=== PATIENT | male | born 1965 | race Caucasian/White ===

== ENCOUNTER 2016-08-24 16:09 | Emergency (ER) | payer SELFPAY ==
[2016-08-24 18:02] LABS: APPEARANCE CLEAR (CLEAR); BILIRUBIN NEGATIVE (NEGATIVE); COLOR YELLOW (YELLOW); GLUCOSE 50 mg/dL (NEGATIVE); KETONE NEGATIVE (NEGATIVE); LEUKOCYTE ESTERASE TRACE (NEGATIVE); NITRITE NEGATIVE (NEGATIVE); PROTEIN 3+ mg/dL (NEGATIVE); UROBILINOGEN NORMAL (NORMAL)
[2016-08-24 18:03] LABS: BACTERIA FEW /hpf (NONE SEEN); EPITHELIAL CELLS 0-5 /hpf (0-5); GRANULAR CAST OCC /lpf (NONE SEEN); RED CELLS - URINE 0-5 /hpf (0-5); WHITE CELLS - URINE 0-5 /hpf (0-5)
== END 2016-08-24 18:52 | disposition home or self-care (01) ==
LOC: D.ER 16:09
PROVIDERS: Nurse Practitioner Family
DX: L03.211 Cellulitis of face (principal); M62.838 Other muscle spasm; S39.012A Strain of muscle, fascia and tendon of lower back, initial encounter; W19.XXXA Unspecified fall, initial encounter

== ENCOUNTER 2017-03-16 13:56 | Inpatient (IN) | payer MEDICAID ==
[~2017-03-16] VITALS: Ht 180.3 cm; Wt 107.2 kg
--- NOTE | ~2017-03-16 | EC ---
PATIENT:NADIA WHITT DATE OF SERVICE: 03/16/17 SEX: M MEDICAL RECORD: [id number] DATE OF : [birth year] LOCATION:D.M2 D.212 AGE OF PATIENT: 51 ADMISSION DATE: 03/16/17 REFERRING PHYSICIAN: INTERPRETING PHYSICIAN: IJEOMA ARAIZA MD ECHOCARDIOGRAM REPORT ECHO CHARGES 4 ECHO COMPLETE CLINICAL DIAGNOSIS: CHF ECHOCARDIOGRAPHIC MEASUREMENTS (adult normal given) AC root (d.<3.7cm) 3.5 cm LV Septum d (<1.2 cm> 1.6 cm Valve Excursion 2.0 cm LV Septum (systole) 1.8 cm Left Atria (s.<4.0cm> 5.4 cm LVPW d(<1.2cm) 1.8 cm RV (d.<2.3cm) 4.8 cm LVPW (sytole) 2.2 cm LV diastole(<5.6CM) 5.1 cm MV E-F(>70mm/sec) cm LV systole 3.5 cm LVOT Diameter 2.2 cm MV exc.(>10mm) 1.9 cm Est.ejection fraction (50-75%) % Pericardial Effusion Y DOPPLER: LVIT cm/sec A 57.0 cm/sec E 110 cm/sec LA cm/sec RVSP 36 mmHg LVOT 91 cm/sec AOP1/2T m/s Asc. Ao 135 cm/sec RVOT 85 cm/sec RA cm/sec PA 126 cm/sec AV Gradient Peak 7.32 mmHg AV Mean 3.98 mmHg AV Area 2.6 cm MV Gradient Peak 8.32 mmHg MV Mean 2.26 mmHg MV Area cm COMMENTS: Bookkeeping Assistant: 2 GUERA MARTINI Cost Recovery Technician: 3 Dr. Overton TAPE# PACS DATE OF SERVICE: 03/17/2017 Adequate 2-D echo, color flow, spectral Doppler, and M-mode Concentric LVH is present. LV internal dimensions are normal. LV is globally hypokinetic with reduced EF. Estimated EF 30% to 35%. Aortic valve sclerosis without stenosis by Doppler interrogation. Left atrium is obviously dilated at 5.4 cm. Mitral valve is thickened. Mild MR. Right-sided chamber is grossly normal. Mild TR. ECHOCARDIOGRAM REPORT [id number] NADIA WHITT TRANSINT:[id number] Voice Confirmation ID: [id number] DOCUMENT ID: [id number] 03/21/2017 Edited to correct date of service, dmm. IJEOMA ARAIZA MD at 1337 CC: [id number] DICTATION DATE: 03/18/17 1036 INVENTORY TRANSCRIBER: 03/18/17 1153 DIS IN 03/27/17 [place] [id number] [place] [id number]
--- NOTE | ~2017-03-16 | HP ---
PATIENT: NADIA WHITT MEDICAL RECORD: [id number] ACCOUNT: [id number] LOCATION:.[facility].2126 : [birth year] ADMISSION DATE: 03/16/17 HISTORY AND PHYSICAL EXAMINATION REASON FOR ADMISSION: Shortness of breath. HISTORY OF PRESENT ILLNESS: The patient is a 51-year-old male from [place]. He is temporarily living in [place]. He came into the ED today because of increasing trouble with shortness of breath and inability to lay flat while sleeping. He denied chest pain. He has also noticed that his lower extremities have been more swollen over the last several weeks. He states he has a history of kidney disease, he was told about just a few months ago. He had a kidney biopsy, does not know the results. He said he has never been told he had heart failure. He does admit to having hypertension. He takes some medication, but has none of them with him. He thinks he takes metformin. Denies chest pain or recent fever. PAST MEDICAL HISTORY: AODM for 5 years; acute kidney failure, 6 months; essential hypertension; obesity; diabetic neuropathy; and erectile dysfunction. PAST SURGICAL HISTORY: Negative. SOCIAL HISTORY: Unsure of his mother's health. Father had hypertension. Socially, he quit smoking this year. He has a [id number]-axwu history of smoking. He said he has done all different types of drugs, but none recently. 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 MEDICATIONS: Metformin, dose unknown. ALLERGIES: PENICILLIN. REVIEW OF SYSTEMS: CONSTITUTIONAL: Generally, he has been fatigued for the last several weeks, poor appetite. No fever. HEENT: No recent visual change, sinus congestion, or sore throat. RESPIRATORY: He has had increasing shortness of breath, but no cough. CARDIAC: No chest pain, but increasing lower peripheral edema and edema in his thighs and lower abdomen. GASTROINTESTINAL: No nausea, vomiting, change in stools or blood per rectum. GENITOURINARY: Nocturia once nightly. ENDOCRINE: Denies polyuria, polydipsia, heat, or cold intolerance. NEUROLOGIC: No history of stroke, TIA, vascular headaches or seizure. He does have numbness in the bottoms of his feet. GENITOURINARY: Nocturia once nightly as mentioned. INTEGUMENT: No rash or itching. PSYCHIATRIC: Denies depress mood. PHYSICAL EXAMINATION: VITAL SIGNS: His temperature was 101.5, pulse 107 and regular, respirations were 24, O2 sats 95% on room air. Blood pressure 170/90, heart rate 100 and regular. GENERAL: The patient is difficult to understand, he speaks with slurred speech. HEENT: Normocephalic. Eyes are clear and nonicteric. Oropharynx is dry mucous membranes. HISTORY AND PHYSICAL [id number] NADIA WHITT NECK: Supple. CHEST: Fine basilar crackles. HEART: Tachycardic without rubs or murmurs appreciated. PMI is displaced laterally. ABDOMEN: Obese, soft with peau d'orange consistency in the lower abdomen. GENITOURINARY: Deferred. EXTREMITIES: He has 4+ bipedal and pretibial edema of the knees. NEUROLOGICAL: Oriented to person, place, and time. Cranial nerves grossly intact. Gait not tested. LABORATORY DATA: Influenza A and B are negative. His white count is 6600, H&H is 8 and 24.8 respectively, platelet count is 130,000, neutrophils were 82%. Potassium was 5.7, CO2 is low at 16.6, anion gap of 21, BUN 16, creatinine 6.3. Liver functions are normal except for alkaline phosphatase of 126. Troponin 0.323. ProBNP is 25,894. Chest x-ray reveals cardiomegaly, severe. ASSESSMENT: 1. Koelm-qm-tmkkifp renal failure. 2. Metabolic acidosis. 3. Hyperkalemia secondary to jvmwj-mr-fdsrlgx renal failure. 4. Congestive heart failure with cardiomegaly. 5. Anemia. 6. Febrile illness, etiology unknown. PLAN: We will culture blood and urine. Urinalysis has not been obtained. We will do that now and see if that is the source of his fever. Renal and cardiology have both been consulted. We will obtain echocardiogram to rule out pericardial effusion. Further workup pending clinical course. TRANSINT:[id number] Voice Confirmation ID: [id number] DOCUMENT ID: [id number] MARY JAIMES MD at 1329 CC: [id number] DICTATION DATE: 03/16/172021 SHIRT HEMMER: 03/17/17 0322 ADM IN [place] [id number] [place] [address]
--- NOTE | ~2017-03-16 | CN ---
PATIENT NAME:NADIA WHITT MEDICAL RECORD: [id number] : 69 LOCATION:D. D.2126 ADMIT DATE: 03/16/17 ACCOUNT: [id number] CONSULTING PHYSICIAN: IJEOMA ARAIZA MD REFERRING PHYSICIAN: MARY JAIMES MD DATE OF CONSULTATION: 03/17/2017 HISTORY OF PRESENT ILLNESS: A 51-year-old gentleman, poor historian. He has a history of diabetes mellitus and renal disease, unsure of the etiology, thinks he was told he is diabetic, 3-week history by his report, progressive downward course, worsening dyspnea, lower extremity edema, orthopnea, generalized malaise and fatigue. He reports early this fall he was able to walk as far as he wanted. He is found to have an enlarged cardiac silhouette, elevated BNP, elevated troponin. We are asked to see him concerning his cardiovascular status. PAST MEDICAL HISTORY: Includes; 1. History of diabetes mellitus. 2. Hypertension. ALLERGIES: PENICILLIN. MEDICATIONS: Metformin, unknown dose. SOCIAL HISTORY: He quit smoking. Social drinker. No illicit drug abuse as of late. Working at a hotel. REVIEW OF SYSTEMS: The patient reports easy bruising but reports no swollen glands. The patient reports no fever, no night sweats, no significant weight gain, no significant weight loss. No significant exercise tolerance. The patient reports no dry eyes, no irritation, no vision change. Patient reports no difficulty hearing and no ear pain. Patient reports no frequent nose bleeds or nose and sinus problems. Patient reports on arm pain on exertion. No shortness of breath while lying down. No history of heart murmur. Patient reports no cough, no wheezing or coughing up blood. Patient reports no abdominal pain, no vomiting. Normal appetite. No diarrhea and not vomiting blood. No nausea and no constipation. Patient reports no incontinence. No difficulty urinating. No hematuria. No increased frequency. Patient reports no muscle aches. No weakness, no arthralgias, no back pain. No swelling of the extremities. Patient reports no abnormal mole, no jaundice, no rashes. Reports no loss of consciousness. No weakness and no numbness. No seizures, dizziness, or headaches. The patient reports no depression, no sleep disturbance, feeling safe in a relationship and no alcohol abuse. Patient reports on fatigue. Reports no runny nose or sinus pressure. No itching, no hives, and no frequent sneezing. PHYSICAL EXAMINATION: GENERAL: Comfortable ill-appearing gentleman in no acute distress. VITAL SIGNS: Blood pressure 174/90, pulse 97 and regular. HEENT: Normocephalic, atraumatic. NECK: No bruits are noted. HEART: Regular, questionable one component rub at the left sternal border. LUNGS: Poor air excursion with inspiratory and expiratory wheezes. ABDOMEN: Soft, nontender. EXTREMITIES: He has 2+ edema, 1+ pulses. NEUROLOGIC: Grossly intact. CONSULT REPORT [id number] NADIA WHITT DIAGNOSTIC DATA: ECG shows nonspecific ST changes, borderline low voltage. IMPRESSION: Multiple medical problems including probably zxiqa-rp-aqcwngo renal insufficiency; anemia, question this is EPO dependent; diabetes mellitus; certainly pericardial effusion versus severe cardiomyopathy concern. We will check echocardiographic study. Further recommendations based on clinical course. TRANSINT:[id number] Voice Confirmation ID: [id number] DOCUMENT ID: [id number] IJEOMA ARAIZA MD at 1129 CC: [id number] DICTATION DATE: 03/17/17 1044 CLIENT RELATIONSHIP CONSULTANT: 03/17/17 1305 ADM IN [facility] [address] [place] [address]
--- NOTE | ~2017-03-16 | OP ---
PATIENT NAME: NADIA WHITT MEDICAL RECORD: [id number] :69 LOCATION:D.M2 D.2126 ADMISSION DATE:03/16/17 SURGEON: GAYLA WERNER MD DATE OF OPERATION: 03/20/2017 PREOPERATIVE DIAGNOSES: 1. Chronic kidney disease. 2. Diabetes mellitus. 3. Congestive heart failure, undifferentiated. POSTOPERATIVE DIAGNOSES: 1. Chronic kidney disease. 2. Diabetes mellitus. 3. Congestive heart failure, undifferentiated. PROCEDURES: 1. Right IJ 19 cm HemoSplit placement. 2. Fluoroscopic interpretation. SURGEON: Gayla Werner MD REPORT OF PROCEDURE: The patient's right neck was prepped and draped in sterile fashion. Using ultrasound guidance, a needle was used to cannulate the right internal jugular vein. The guidewire was advanced with ease. Fluoroscopy was used to note that the wire was in good position in the venous system. A skin incision was then made on the patient's right lateral chest and the catheter was tunneled between this and the wire exit site. The multiple dilators were placed over the wire followed by the dilator trocar. The dilator and wire were removed and the HemoSplit tips were advanced through the trocar. The trocar was removed and a HemoSplit was pulled back until it was resting in good position in the superior vena cava. The catheter aspirated nonpulsatile dark blood and flushed easily with heparinized saline. We then flushed each port with 2 mL of 1000 units per mL of heparin. The catheter was then sutured in place with 2-0 Prolenes and the skin incisions were closed with subcutaneous 5-0 Monocryl. COMPLICATIONS: None. CONDITION: Stable. ANESTHESIA: General endotracheal. BLOOD LOSS: 30 mL. TRANSINT:[id number] Voice Confirmation ID: [id number] DOCUMENT ID: [id number] GAYLA WERNER MD at 0956 CC: [id number] DICTATION DATE: 03/20/17 1540 SENIOR SUPPLIER QUALITY ENGINEER: 03/20/17 1600 DIS IN 03/27/17 [place] [id number] [place] [id number]
[2017-03-16 14:41] LABS: BASOPHILS 0.3 % (0-2); EOSINOPHILS 0.5 % (0-7); HEMATOCRIT 24.8 % (42.0-54.0); IMMATURE GRANULOCYTES 0.5 % (0-5); LYMPHOCYTES 7.9 % (15-50); MCH 29.6 pg (26.0-34.0); MCHC 32.3 g/dL (31.0-37.0); MCV 91.9 fL (80.0-100.0); MEAN PLATELET VOLUME 10.6 fL (7.4-10.4); MONOCYTES 8.5 % (2-11); NEUTROPHILS 82.3 % (40-80); PLATELET COUNT 130 10x3/uL (130-400); RDW 16.7 % (11.5-14.5); WBC 6.6 10x3/uL (4.8-10.8)
[2017-03-16 15:20] LABS: ALBUMIN 2.7 g/dL (3.4-5.0); ANION GAP 21.1 mmol/L (8-16); BILIRUBIN - TOTAL 0.26 mg/dL (0.2-1.3); CALCIUM 7.4 mg/dL (8.5-10.1); CARBON DIOXIDE 16.6 mmol/L (21.0-32.0); CREATININE - SERUM 6.3 mg/dL (0.6-1.3); POTASSIUM - SERUM 5.7 mmol/L (3.5-5.1); PROTEIN - SERUM 6.5 g/dL (6.4-8.2)
[2017-03-16 15:37] LABS: TROPONIN-I 0.323 ng/mL (0.000-0.060)
[2017-03-16 23:00] VITALS: BP 187/82
[2017-03-17 01:56] LABS: APPEARANCE HAZY (CLEAR); COLOR YELLOW (YELLOW); NITRITE NEGATIVE (NEGATIVE); PROTEIN 1+ mg/dL (NEGATIVE); SPECIFIC GRAVITY 1.015 (1.005-1.020)
[2017-03-17 01:57] LABS: BILIRUBIN NEGATIVE (NEGATIVE); GLUCOSE 100 mg/dL (NEGATIVE); KETONE NEGATIVE (NEGATIVE); UROBILINOGEN NORMAL (NORMAL); WHITE CELLS - URINE NSEEN /hpf (0-5)
[2017-03-17 02:25] VITALS: BMI 33.5
[2017-03-17 06:23] VITALS: BP 189/83
[2017-03-17 08:04] VITALS: BP 174/90
[2017-03-17 09:15] LABS: % SATURATION 5 % (15-55); BASOPHILS 0.2 % (0-2); EOSINOPHILS 0.2 % (0-7); HEMATOCRIT 23.3 % (42.0-54.0); IMMATURE GRANULOCYTES 0.6 % (0-5); IRON 14 ug/dl (35-150); LYMPHOCYTES 8.6 % (15-50); MCH 29.2 pg (26.0-34.0); MCHC 32.2 g/dL (31.0-37.0); MCV 90.7 fL (80.0-100.0); MEAN PLATELET VOLUME 11.2 fL (7.4-10.4); MONOCYTES 7.5 % (2-11); NEUTROPHILS 82.9 % (40-80); PLATELET COUNT 117 10x3/uL (130-400); RBC 2.57 10x6/uL (4.20-6.10); RDW 16.4 % (11.5-14.5); TOTAL IRON BIND CAPACITY 258 ug/dl (260-445); UNSAT IRON BIND CAPACITY 244 ug/dl (150-375); WBC 5.5 10x3/uL (4.8-10.8)
[2017-03-17 09:16] LABS: HEMOGLOBIN 7.5 g/dL (13.5-17.5)
[2017-03-17 09:31] LABS: FERRITIN 149 ng/mL (3-244); LDH 294 U/L (85-227)
[2017-03-17 10:02] LABS: ERYTHROCYTE SEDIMENTATION RATE 66 mm/hr (0-15)
[2017-03-17 11:16] VITALS: Ht 180.3 cm; Wt 107.2 kg
[2017-03-17 11:34] VITALS: BP 211/98
[2017-03-17 13:38] LABS: ANION GAP 20.4 mmol/L (8-16); CALCIUM 7.4 mg/dL (8.5-10.1); CARBON DIOXIDE 16.6 mmol/L (21.0-32.0); CREATININE - SERUM 6.7 mg/dL (0.6-1.3)
[2017-03-17 14:33] VITALS: BP 153/74
[2017-03-17 15:37] VITALS: BP 169/74
[2017-03-17 17:22] LABS: HEMOGLOBIN A1C 6.1 % (4.8-6.0)
[2017-03-17 21:36] VITALS: BP 190/84
[2017-03-18 01:29] VITALS: BP 218/101
[2017-03-18 07:24] LABS: BASOPHILS 0.2 % (0-2); EOSINOPHILS 0.6 % (0-7); HEMATOCRIT 26.6 % (42.0-54.0); HEMOGLOBIN 8.7 g/dL (13.5-17.5); IMMATURE GRANULOCYTES 0.6 % (0-5); LYMPHOCYTES 14.4 % (15-50); MCH 29.2 pg (26.0-34.0); MCHC 32.7 g/dL (31.0-37.0); MCV 89.3 fL (80.0-100.0); MEAN PLATELET VOLUME 11.6 fL (7.4-10.4); MONOCYTES 9.9 % (2-11); NEUTROPHILS 74.3 % (40-80); PLATELET COUNT 112 10x3/uL (130-400); RBC 2.98 10x6/uL (4.20-6.10); RDW 16.5 % (11.5-14.5); WBC 4.6 10x3/uL (4.8-10.8)
[2017-03-18 07:47] LABS: CALCIUM 7.6 mg/dL (8.5-10.1); CREATININE - SERUM 6.5 mg/dL (0.6-1.3)
[2017-03-18 07:57] LABS: ANION GAP 16.8 mmol/L (8-16); CARBON DIOXIDE 20.8 mmol/L (21.0-32.0); POTASSIUM - SERUM 4.6 mmol/L (3.5-5.1)
[2017-03-18 07:58] VITALS: BP 166/88
[2017-03-18 11:24] VITALS: BP 167/80
[2017-03-18 13:33] LABS: CREATININE - URINE 53.7 mg/dL (30-125); POTASSIUM - URINE 18.3 MMOL/L (12.0-62.0)
[2017-03-18 13:41] LABS: PRO/CRE RATIO URINE 5.9 mg/g; PROTEIN - URINE 319.5 mg/dL (0.0-11.9)
[2017-03-18 15:35] VITALS: BP 175/85
[2017-03-18 20:00] VITALS: BP 190/91
[2017-03-19] VITALS: BP 175/78
[2017-03-19 04:00] VITALS: BP 190/80
[2017-03-19 06:56] LABS: BASOPHILS 0.3 % (0-2); EOSINOPHILS 1.1 % (0-7); HEMOGLOBIN 8.3 g/dL (13.5-17.5); IMMATURE GRANULOCYTES 0.3 % (0-5); LYMPHOCYTES 16.9 % (15-50); MCHC 33.2 g/dL (31.0-37.0); MCV 87.4 fL (80.0-100.0); MEAN PLATELET VOLUME 10.6 fL (7.4-10.4); NEUTROPHILS 71.4 % (40-80); PLATELET COUNT 111 10x3/uL (130-400); RBC 2.86 10x6/uL (4.20-6.10); RDW 15.9 % (11.5-14.5); WBC 3.6 10x3/uL (4.8-10.8)
[2017-03-19 07:25] LABS: ANION GAP 16.1 mmol/L (8-16); CALCIUM 7.1 mg/dL (8.5-10.1); CARBON DIOXIDE 20.7 mmol/L (21.0-32.0); CREATININE - SERUM 6.3 mg/dL (0.6-1.3)
[2017-03-19 07:26] LABS: POTASSIUM - SERUM 3.8 mmol/L (3.5-5.1)
[2017-03-19 08:10] VITALS: BP 152/82
[2017-03-19 11:23] VITALS: BP 157/79
[2017-03-19 12:11] LABS: FOLATE (FOLIC ACID) - SERUM 10.4 ng/mL (>3.0)
[2017-03-19 15:31] VITALS: BP 144/86
[2017-03-19 20:00] VITALS: BP 166/86
[2017-03-20 04:00] VITALS: BP 176/87
[2017-03-20 04:49] LABS: BASOPHILS 0.3 % (0-2); EOSINOPHILS 1.4 % (0-7); HEMATOCRIT 26.1 % (42.0-54.0); HEMOGLOBIN 8.6 g/dL (13.5-17.5); IMMATURE GRANULOCYTES 0.6 % (0-5); LYMPHOCYTES 21.9 % (15-50); MCH 29.1 pg (26.0-34.0); MCV 88.2 fL (80.0-100.0); MEAN PLATELET VOLUME 11.3 fL (7.4-10.4); MONOCYTES 9.2 % (2-11); NEUTROPHILS 66.6 % (40-80); PLATELET COUNT 111 10x3/uL (130-400); RBC 2.96 10x6/uL (4.20-6.10); RDW 15.9 % (11.5-14.5); WBC 3.6 10x3/uL (4.8-10.8)
[2017-03-20 05:55] LABS: ANION GAP 18.7 mmol/L (8-16); CALCIUM 7.1 mg/dL (8.5-10.1); CARBON DIOXIDE 20.6 mmol/L (21.0-32.0); CREATININE - SERUM 6.3 mg/dL (0.6-1.3); PHOSPHOROUS 6.5 mg/dL (2.5-4.9); POTASSIUM - SERUM 4.3 mmol/L (3.5-5.1)
[2017-03-20 07:42] VITALS: BP 146/82
[2017-03-20 11:26] VITALS: BP 136/80
[2017-03-20 16:13] LABS: HEPATITIS C ANTIBODY >11.0 (0.0-0.9)
[2017-03-21 04:00] VITALS: BP 151/73
[2017-03-21 06:45] LABS: BASOPHILS 0 % (0-2); EOSINOPHILS 1.7 % (0-7); HEMATOCRIT 26.4 % (42.0-54.0); HEMOGLOBIN 8.6 g/dL (13.5-17.5); IMMATURE GRANULOCYTES 1.1 % (0-5); LYMPHOCYTES 22.5 % (15-50); MCHC 32.6 g/dL (31.0-37.0); MCV 88.9 fL (80.0-100.0); MEAN PLATELET VOLUME 11.5 fL (7.4-10.4); MONOCYTES 9.3 % (2-11); NEUTROPHILS 65.4 % (40-80); PLATELET COUNT 119 10x3/uL (130-400); RBC 2.97 10x6/uL (4.20-6.10); RDW 15.7 % (11.5-14.5); WBC 3.6 10x3/uL (4.8-10.8)
[2017-03-21 07:06] LABS: ANION GAP 12.4 mmol/L (8-16); CALCIUM 7.1 mg/dL (8.5-10.1)
[2017-03-21 07:16] LABS: CARBON DIOXIDE 26.6 mmol/L (21.0-32.0); CREATININE - SERUM 4.5 mg/dL (0.6-1.3)
[2017-03-21 08:17] LABS: FOLATE (FOLIC ACID) - SERUM 9.7 ng/mL (>3.0)
[2017-03-21 08:36] VITALS: BP 167/81
[2017-03-21 13:16] LABS: ANA REFLEX - ANTICHROMATIN ABS <0.2 AI (0.0-0.9); ANA REFLEX - CENTROMERE B ABS <0.2 AI (0.0-0.9); ANA REFLEX - DBL STRANDED DNA <1 IU/mL (0-9); ANA REFLEX - DIRECT Positive (Negative); ANA REFLEX - JO-1 AB <0.2 AI (0.0-0.9); ANA REFLEX - RNP ANTIBODIES <0.2 AI (0.0-0.9); ANA REFLEX - SCL-70 1.1 AI (0.0-0.9); ANA REFLEX - SJOGRENS AB SSA <0.2 AI (0.0-0.9); ANA REFLEX - SJOGRENS AB SSB 0.7 AI (0.0-0.9); ANA REFLEX - SMITH AB <0.2 AI (0.0-0.9)
[2017-03-21 15:06] VITALS: BP 166/71
[2017-03-21 21:00] VITALS: BP 164/85
[2017-03-22 06:04] VITALS: BP 183/86
[2017-03-22 06:22] LABS: HEMATOCRIT 25.4 % (42.0-54.0); HEMOGLOBIN 8.4 g/dL (13.5-17.5); LYMPHOCYTES 22.4 % (15-50); MCHC 33.1 g/dL (31.0-37.0); MCV 87.6 fL (80.0-100.0); MEAN PLATELET VOLUME 11.2 fL (7.4-10.4); NEUTROPHILS 67.3 % (40-80); PLATELET COUNT 106 10x3/uL (130-400); RDW 15.4 % (11.5-14.5); WBC 3.6 10x3/uL (4.8-10.8)
[2017-03-22 06:35] LABS: ANION GAP 12.8 mmol/L (8-16); CALCIUM 7.4 mg/dL (8.5-10.1); CARBON DIOXIDE 28.9 mmol/L (21.0-32.0); CREATININE - SERUM 4.2 mg/dL (0.6-1.3); POTASSIUM - SERUM 3.7 mmol/L (3.5-5.1)
[2017-03-22 07:27] LABS: SPE - A/G RATIO 0.8 (0.7-1.7); SPE - ALBUMIN 2.3 g/dL (2.9-4.4); SPE - ALPHA-1 GLOBULIN 0.3 g/dL (0.0-0.4); SPE - BETA GLOBULIN 0.6 g/dL (0.7-1.3); SPE - GAMMA GLOBULIN 1.1 g/dL (0.4-1.8); SPE - M-SPIKE Not Observed g/dL (Not Observed); SPE - TOTAL PROTEIN 5.3 g/dL (6.0-8.5)
[2017-03-22 08:08] VITALS: BP 191/95
[2017-03-22 16:14] LABS: ANCA - ANTIMYELOPEROXIDASE <9.0 U/mL (0.0-9.0); ANCA - ANTIPROTEINASE 3 <3.5 U/mL (0.0-3.5); ANCA - ATYPICAL <1:20 titer (Neg:<1:20); ANCA - CYTOPLASMIC <1:20 titer (Neg:<1:20); ANCA - PERINUCLEAR <1:20 titer (Neg:<1:20)
[2017-03-22 22:44] VITALS: BP 196/101
[2017-03-23 00:59] VITALS: BP 167/78
[2017-03-23 05:17] LABS: BASOPHILS 0.2 % (0-2); EOSINOPHILS 1.3 % (0-7); HEMATOCRIT 26.7 % (42.0-54.0); HEMOGLOBIN 8.5 g/dL (13.5-17.5); IMMATURE GRANULOCYTES 2.2 % (0-5); LYMPHOCYTES 23.1 % (15-50); MCH 28.4 pg (26.0-34.0); MCHC 31.8 g/dL (31.0-37.0); MCV 89.3 fL (80.0-100.0); MEAN PLATELET VOLUME 10.7 fL (7.4-10.4); MONOCYTES 10.1 % (2-11); NEUTROPHILS 63.1 % (40-80); PLATELET COUNT 113 10x3/uL (130-400); RBC 2.99 10x6/uL (4.20-6.10); RDW 15.3 % (11.5-14.5)
[2017-03-23 05:18] LABS: WBC 4.6 10x3/uL (4.8-10.8)
[2017-03-23 05:27] VITALS: BP 152/78
[2017-03-23 05:48] LABS: ANION GAP 10.7 mmol/L (8-16); CALCIUM 7.9 mg/dL (8.5-10.1); CARBON DIOXIDE 30.7 mmol/L (21.0-32.0); CREATININE - SERUM 3.9 mg/dL (0.6-1.3); POTASSIUM - SERUM 3.4 mmol/L (3.5-5.1)
[2017-03-23 07:57] VITALS: BP 109/61
[2017-03-23 15:52] VITALS: BP 192/88
[2017-03-23 20:07] VITALS: BP 212/97
[2017-03-24] VITALS: BP 189/85
[2017-03-24 05:21] VITALS: BP 204/94
[2017-03-24 05:53] LABS: BASOPHILS 0.2 % (0-2); EOSINOPHILS 2.1 % (0-7); HEMATOCRIT 27.1 % (42.0-54.0); HEMOGLOBIN 8.6 g/dL (13.5-17.5); IMMATURE GRANULOCYTES 2.1 % (0-5); LYMPHOCYTES 19.5 % (15-50); MCH 28.3 pg (26.0-34.0); MCHC 31.7 g/dL (31.0-37.0); MCV 89.1 fL (80.0-100.0); MEAN PLATELET VOLUME 10.8 fL (7.4-10.4); MONOCYTES 8.5 % (2-11); NEUTROPHILS 67.6 % (40-80); PLATELET COUNT 133 10x3/uL (130-400); RBC 3.04 10x6/uL (4.20-6.10); RDW 15.2 % (11.5-14.5)
[2017-03-24 06:01] LABS: WBC 5.9 10x3/uL (4.8-10.8)
[2017-03-24 06:14] LABS: ANION GAP 12.5 mmol/L (8-16); CALCIUM 8.1 mg/dL (8.5-10.1); CARBON DIOXIDE 28.9 mmol/L (21.0-32.0); CREATININE - SERUM 3.5 mg/dL (0.6-1.3); POTASSIUM - SERUM 3.4 mmol/L (3.5-5.1)
[2017-03-24 07:51] VITALS: BP 108/64
[2017-03-24 16:31] VITALS: BP 114/74
[2017-03-24 20:46] VITALS: BP 182/89
[2017-03-25 01:16] VITALS: BP 191/69
[2017-03-25 05:14] VITALS: BP 204/96
[2017-03-25 06:09] LABS: BASOPHILS 0.3 % (0-2); EOSINOPHILS 1.1 % (0-7); HEMATOCRIT 28.3 % (42.0-54.0); HEMOGLOBIN 9.2 g/dL (13.5-17.5); IMMATURE GRANULOCYTES 1.4 % (0-5); MCH 28.8 pg (26.0-34.0); MCHC 32.5 g/dL (31.0-37.0); MCV 88.7 fL (80.0-100.0); MEAN PLATELET VOLUME 11.6 fL (7.4-10.4); MONOCYTES 9.7 % (2-11); NEUTROPHILS 71.5 % (40-80); PLATELET COUNT 147 10x3/uL (130-400); RBC 3.19 10x6/uL (4.20-6.10); RDW 15.2 % (11.5-14.5); WBC 6.6 10x3/uL (4.8-10.8)
[2017-03-25 06:30] LABS: ANION GAP 12.5 mmol/L (8-16); CALCIUM 8.3 mg/dL (8.5-10.1); CARBON DIOXIDE 29.8 mmol/L (21.0-32.0); CREATININE - SERUM 3.7 mg/dL (0.6-1.3); POTASSIUM - SERUM 3.3 mmol/L (3.5-5.1)
[2017-03-25 08:00] VITALS: BP 130/62
[2017-03-25 11:22] VITALS: BP 173/88
[2017-03-25 16:06] VITALS: BP 140/68
[2017-03-25 20:00] VITALS: BP 190/92
[2017-03-26] VITALS: BP 137/77
[2017-03-26 04:00] VITALS: BP 147/96
[2017-03-26 05:42] LABS: BASOPHILS 0.3 % (0-2); EOSINOPHILS 1.4 % (0-7); HEMATOCRIT 28.9 % (42.0-54.0); HEMOGLOBIN 9.2 g/dL (13.5-17.5); IMMATURE GRANULOCYTES 1.2 % (0-5); LYMPHOCYTES 13.1 % (15-50); MCH 28.5 pg (26.0-34.0); MCHC 31.8 g/dL (31.0-37.0); MCV 89.5 fL (80.0-100.0); MEAN PLATELET VOLUME 10.9 fL (7.4-10.4); PLATELET COUNT 137 10x3/uL (130-400); RBC 3.23 10x6/uL (4.20-6.10); RDW 15.2 % (11.5-14.5); WBC 6.5 10x3/uL (4.8-10.8)
[2017-03-26 05:52] LABS: CALCIUM 8.7 mg/dL (8.5-10.1); CARBON DIOXIDE 27.5 mmol/L (21.0-32.0); CREATININE - SERUM 4.7 mg/dL (0.6-1.3); POTASSIUM - SERUM 3.5 mmol/L (3.5-5.1)
[2017-03-26 07:00] VITALS: BP 148/96
[2017-03-26 09:09] LABS: UPE RAND - ALBUMIN 44.7 % (()); UPE RAND - ALPHA 2 GLOBULIN 10.9 % (()); UPE RAND - BETA GLOBULIN 15.8 % (()); UPE RAND - GAMMA GLOBULIN 17.5 % (())
[2017-03-26 16:32] VITALS: BP 162/62
[2017-03-26 21:30] VITALS: BP 150/72
[2017-03-27 06:11] VITALS: BP 180/80
[2017-03-27 06:41] LABS: BASOPHILS 0.1 % (0-2); EOSINOPHILS 1.1 % (0-7); HEMATOCRIT 29.4 % (42.0-54.0); HEMOGLOBIN 9.4 g/dL (13.5-17.5); IMMATURE GRANULOCYTES 0.9 % (0-5); LYMPHOCYTES 14.8 % (15-50); MCH 28.7 pg (26.0-34.0); MCV 89.9 fL (80.0-100.0); MEAN PLATELET VOLUME 11.3 fL (7.4-10.4); MONOCYTES 9.4 % (2-11); NEUTROPHILS 73.7 % (40-80); PLATELET COUNT 144 10x3/uL (130-400); RBC 3.27 10x6/uL (4.20-6.10); RDW 15.3 % (11.5-14.5); WBC 7.9 10x3/uL (4.8-10.8)
[2017-03-27 06:50] LABS: ANION GAP 14.2 mmol/L (8-16); CALCIUM 8.5 mg/dL (8.5-10.1); CARBON DIOXIDE 28.2 mmol/L (21.0-32.0); CREATININE - SERUM 4.4 mg/dL (0.6-1.3); POTASSIUM - SERUM 3.4 mmol/L (3.5-5.1)
[2017-03-27] MEDS ORDERED: HYDRALAZINE HCL25 MG PO (07:31)
[2017-03-27] MEDS ORDERED: COREG6.25 MG PO (07:31)
[2017-03-27] MEDS ORDERED: LISINOPRIL10 MG PO (07:31)
[2017-03-27] MEDS ORDERED: KLOR-CON 1010 MEQ PO (07:32)
[2017-03-27] MEDS ORDERED: LASIX80 MG PO (07:32)
[2017-03-27] MEDS ORDERED: PROTONIX40 MG PO (07:32)
[2017-03-27] MEDS ORDERED: FLOMAX0.4 MG PO (07:33)
[2017-03-27 08:36] VITALS: BP 180/90
== END 2017-03-27 16:48 | disposition home or self-care (01) | DRG 682 ==
LOC: D.ER 13:56 → D.M2 17:54
PROVIDERS: Emergency Medicine; Family Medicine; Internal Medicine; Internal Medicine Nephrology
PROC: 0T9B70Z Drainage of Bladder with Drainage Device, Via Natural or Artificial Opening (ICD-10-PCS; principal; 2017-03-16)
PROC: 05HM33Z Insertion of Infusion Device into Right Internal Jugular Vein, Percutaneous Approach (ICD-10-PCS; 2017-03-20)
PROC: B5131ZA Fluoroscopy of Right Jugular Veins using Low Osmolar Contrast, Guidance (ICD-10-PCS; 2017-03-20)
PROC: 5A1D70Z Performance of Urinary Filtration, Intermittent, Less than 6 Hours Per Day (ICD-10-PCS; 2017-03-20)
DX: N17.9 Acute kidney failure, unspecified (principal); J18.9 Pneumonia, unspecified organism; I42.9 Cardiomyopathy, unspecified; E87.2 Acidosis; D61.818 Other pancytopenia; I31.3 Pericardial effusion (noninflammatory); Z68.41 Body mass index [BMI] 40.0-44.9, adult; I13.2 Hypertensive heart and chronic kidney disease with heart failure and with stage 5 chronic kidney disease, or end stage renal disease; E11.22 Type 2 diabetes mellitus with diabetic chronic kidney disease; I50.9 Heart failure, unspecified; E11.21 Type 2 diabetes mellitus with diabetic nephropathy; E11.40 Type 2 diabetes mellitus with diabetic neuropathy, unspecified; E87.5 Hyperkalemia; N31.2 Flaccid neuropathic bladder, not elsewhere classified; N50.89 Other specified disorders of the male genital organs; E66.9 Obesity, unspecified; Z87.891 Personal history of nicotine dependence; N18.6 End stage renal disease; E87.6 Hypokalemia; B19.20 Unspecified viral hepatitis C without hepatic coma

== ENCOUNTER 2017-05-28 16:31 | Outpatient (CLI) | payer MEDICAID ==
[~2017-05-28 16:31] MED LIST: COREG6.25 MG PO; FLOMAX0.4 MG PO; HYDRALAZINE HCL25 MG PO; KLOR-CON 1010 MEQ PO; LASIX80 MG PO; LISINOPRIL10 MG PO; NEURONTIN 300300 MG PO; PROTONIX40 MG PO; RENVELA800 MG PO; ZESTRIL10 MG PO
[2017-05-28 16:45] LABS: BASOPHILS 0.4 % (0-2); EOSINOPHILS 1.2 % (0-7); HEMATOCRIT 38.3 % (42.0-54.0); HEMOGLOBIN 13.3 g/dL (13.5-17.5); IMMATURE GRANULOCYTES 0.3 % (0-5); LYMPHOCYTES 14.6 % (15-50); MCH 30.7 pg (26.0-34.0); MCHC 34.7 g/dL (31.0-37.0); MCV 88.5 fL (80.0-100.0); MEAN PLATELET VOLUME 10.5 fL (7.4-10.4); NEUTROPHILS 75.5 % (40-80); RBC 4.33 10x6/uL (4.20-6.10); RDW 15.7 % (11.5-14.5); WBC 7.8 10x3/uL (4.8-10.8)
[2017-05-28 16:48] LABS: PLATELET COUNT 177 10x3/uL (130-400)
[2017-05-28 16:53] LABS: INR 0.99 (0.85-1.17); PROTIME 12.7 SECONDS (11.6-15.0)
[2017-05-28 16:54] LABS: APTT 29.8 SECONDS (22.8-39.4)
[2017-05-28 17:00] LABS: ANION GAP 16.9 mmol/L (8-16); CALCIUM 8.5 mg/dL (8.5-10.1); CARBON DIOXIDE 26.1 mmol/L (21.0-32.0); CREATININE - SERUM 5.2 mg/dL (0.6-1.3)
[2017-06-12 06:18] VITALS: Wt 107.0 kg
== END 2017-05-28 23:59 | disposition home or self-care (01) ==
LOC: D.OPS 16:31 → EDSTATUS 05-29 08:00 → D.OPS 05-29 08:00
PROVIDERS: Surgery
DX: N18.6 End stage renal disease (principal); Z01.810 Encounter for preprocedural cardiovascular examination; Z01.811 Encounter for preprocedural respiratory examination; Z01.812 Encounter for preprocedural laboratory examination

== ENCOUNTER 2017-06-12 05:15 | Outpatient (CLI) | payer MEDICAID ==
[2017-06-11 15:52] LABS: ANION GAP 14.1 mmol/L (8-16); CALCIUM 8.1 mg/dL (8.5-10.1); CARBON DIOXIDE 28.1 mmol/L (21.0-32.0); CREATININE - SERUM 4.7 mg/dL (0.6-1.3); POTASSIUM - SERUM 4.2 mmol/L (3.5-5.1)
[2017-06-11 15:53] LABS: BASOPHILS 0.3 % (0-2); HEMATOCRIT 33.6 % (42.0-54.0); HEMOGLOBIN 11.3 g/dL (13.5-17.5); LYMPHOCYTES 9.4 % (15-50); MCH 30.4 pg (26.0-34.0); MCHC 33.6 g/dL (31.0-37.0); MCV 90.3 fL (80.0-100.0); MEAN PLATELET VOLUME 10.5 fL (7.4-10.4); MONOCYTES 8.5 % (2-11); NEUTROPHILS 79.8 % (40-80); PLATELET COUNT 186 10x3/uL (130-400); RBC 3.72 10x6/uL (4.20-6.10); WBC 9.6 10x3/uL (4.8-10.8)
[2017-06-11 15:57] LABS: INR 1.19 (0.85-1.17); PROTIME 14.6 SECONDS (11.6-15.0)
[2017-06-11 16:33] LABS: APTT > 200.0 SECONDS (22.8-39.4)
[~2017-06-12] VITALS: Ht 180.3 cm; Wt 129.7 kg
[2017-06-12 06:18] VITALS: Ht 180.3 cm; Wt 129.7 kg
[2017-06-12] MEDS ORDERED: NEPHRO-VITE RX1 TAB PO (07:13)
[2017-06-12] MEDS ORDERED: SENSIPAR30 MG PO (07:13)
== END 2017-06-12 10:00 | disposition home or self-care (01) ==
LOC: D.OPS 05:15 → EDSTATUS 08:00 → D.OPS 10:00
PROVIDERS: Surgery
DX: E11.22 Type 2 diabetes mellitus with diabetic chronic kidney disease (principal); I13.2 Hypertensive heart and chronic kidney disease with heart failure and with stage 5 chronic kidney disease, or end stage renal disease; N18.6 End stage renal disease; N17.9 Acute kidney failure, unspecified; Z99.2 Dependence on renal dialysis; Z01.810 Encounter for preprocedural cardiovascular examination; Z01.811 Encounter for preprocedural respiratory examination; Z01.812 Encounter for preprocedural laboratory examination; Z53.9 Procedure and treatment not carried out, unspecified reason

== ENCOUNTER 2017-09-13 10:56 | Outpatient (CLI) | payer MEDICAID ==
[~2017-09-13] VITALS: Ht 180.3 cm; Wt 107.7 kg
--- NOTE | ~2017-09-13 | OP ---
PATIENT NAME: NADIA WHITT MEDICAL RECORD: [id number] :69 LOCATION:D.CAT ADMISSION DATE: SURGEON: IJEOMA ARAIZA MD DATE OF OPERATION: 09/13/2017 PROCEDURE: Left heart catheterization, selective coronary angiography, right femoral artery approach. CATHETERS: A 5-Singaporean sheath, 5/4 left and right Brandon, 5/4 pig. The procedure was well tolerated. The patient was returned to alex. Sheath removed. ExoSeal device placed. FINDINGS: Left ventriculography in 30-degree BAUTISTA view: Normal wall motion, normal systolic function (noted improvement in LV function on meds). CORONARY ANATOMY: LEFT MAIN: Left main is free of disease. LAD: Free of disease in the diagonal system. CIRCUMFLEX: Free of disease in the marginal system. RIGHT CORONARY ARTERY: Large PDA which has a proximal stenosis right at takeoff of the PDA of 80% and distally stenosis of 90%. PLAN: Intervention of the PDA momentarily. DESCRIPTION OF PROCEDURE: A 5-Singaporean sheath was exchanged for a 6-Singaporean sheath. Hockey stick guide catheter provided excellent guide catheter support followed 30 cm Whisper wire. This was placed across the tightly occluded PDA down distal portion of vessel. Distal stents were placed where a 2.5 x 14 mm Integrity nondrug-eluting stent up to 14 atmospheres. Proximally, a 3.0 x 12 mm Integrity nondrug eluting stent was inflated up to 14 atmospheres. Final angiography shows excellent resolution of distal 90% stenosis and no significant residual, proximal 80% stenosis and no significant residual. ANDREI flow was 3 throughout the procedure. Integrilin was used during the case. Brilinta was loaded in the lab. Sheath closed with ExoSeal device. TRANSINT:[id number] Voice Confirmation ID: [id number] DOCUMENT ID: [id number] IJEOMA ARAIZA MD at 0816 CC: [id number] DICTATION DATE: 09/13/17 1457 BRISKET PULLER: 09/13/17 1538 DEP CLI 09/13/[address] [address]
--- NOTE | ~2017-09-13 | HEMODYNAMI ---
PATIENT:NADIA WHITT MEDICAL RECORD: [id number] : 69 LOCATION:[facility] ADMISSION DATE: 09/13/17 Generatedon:09/13/201714:45 Patient name: NADIA WHITT Patient #: [id number] SSN: : 1965 Date of study: 09/13/2017 Page: Of Hemodynamic Procedure Report Patient Data Patient Demographics Procedure consent was obtained First Name: NADIA Gender: Male Last Name: PERI : 1965 [facility] Initial: MARTIR Age: 52 year(s) Patient #: [id number] Race: Unknown Additional ID: [id number] Contact details [address]: [address] [place] [address] State: [place] City: [facility] Zip code: [address] Admission Admission Data Admission Date: 09/13/2017 Admission Time: 10:56 Procedure Procedure Types Cath Procedure Diagnostic Procedure LHC LHC w/Coronaries Procedure Description Procedure Date Procedure Date: 09/13/2017 Procedure Start Time: 14:15 Procedure End Time: 14:42 Procedure Staff Name Function Khoa Woodard MD Performing Physician Georgina Mcdermott RT Monitor Nishi Reed RT Scrub Dar Gentile RN Nurse Procedure Data Cath Procedure Fluoroscopy Diagnostic fluoroscopy Total fluoroscopy Time: 7.4 time: 7.4 min min Diagnostic fluoroscopy Total fluoroscopy dose: dose: 2017 mGy 2017 mGy Contrast Material Contrast Material Type Amount (ml) Isovue 300 145 Entry Location Entry Primary Successful Side Size Upsize Upsize Entry Closure Succes sful Closure Location (Fr) 1 (Fr) 2 (Fr) Remarks Device Remarks Femoral Right 5 Fr 6 Fr Exoseal artery Short Estimated blood loss: 5 ml Diagnostic catheters Device Type Used For End Catheter Placement MULTIPACK JL 4.0 5Fr Left Coronary catheter Angiography MULTIPACK 3DRC 5Fr Right Coronary catheter Angiography MULTIPACK Pigtail 5 Fr LV Angiography catheter Procedure Complications No complications Procedure Medications Medication Administration Route Dosage 0.9% NaCl I.V. 100 ml/hr Oxygen etCO2 Nasal cannula 2 l/min Lidocaine 2% added to field 20 Heparin Flush Bag added to field 2 bags (1000units/500ml NS) Versed I.V. 2 mg Fentanyl I.V. 100 mcg Heparin Bolus I.V. 5000 units Integrilin (Bolus I.V. 9.5 ml 2mg/ml) Integrilin (Bolus wasted 0.5 ml 2mg/ml) Brilinta P.O. 180 mg Hemodynamics Rest Heart Rate: 59 (bpm) Pressure Samples Time Site Value (mmHg) Purpose Heart Use Rate(bpm) 14:23 LV 108/14,18 Snapshot 64 Gradients Valve Time Site Site Mean SEP/DFP Peak To Heart Use 1 2 (mmHg) (sec/min) Peak Rate (mmHg) (bpm) Aortic 14:23 LV AO 65 Snapshots Pre Cath Intra NCS Post Cath Vital Signs Time Heart Resp SPO2 etCO2 NIBP (mmHg) Rhythm Pain Sedation Rate (ipm) (%) (mmHg) Status Level (bpm) 13:43:59 64 19 100 0 131/75(102) NSR 0 (11) 10(A) , No pain 13:48:09 63 12 98 0 129/76(104) NSR 0 (11) 10(A) , No pain 13:52:20 62 12 98 0 129/70(102) NSR 0 (11) 10(A) , No pain 13:56:33 60 12 98 0 123/68(91) NSR 0 (11) 10(A) , No pain 14:00:40 60 12 98 0 120/74(105) NSR 0 (11) 10(A) , No pain 14:04:48 58 14 99 0 115/71(107) NSR 0 (11) 10(A) , No pain 14:08:56 59 15 99 0 122/65(99) NSR 0 (11) 10(A) , No pain 14:13:49 57 14 100 0 118/66(92) NSR 0 (11) 10(A) , No pain 14:17:52 60 14 100 27.9 126/71(95) NSR 0 (11) 9(A) , No pain 14:22:02 62 12 98 20.3 122/71(101) NSR 0 (11) 9(A) , No pain 14:26:10 65 12 98 5.2 123/71(88) NSR 0 (11) 9(A) , No pain 14:30:20 65 12 99 2.2 120/68(94) NSR 0 (11) 9(A) , No pain 14:34:28 64 12 98 0 131/72(91) NSR 0 (11) 9(A) , No pain 14:38:38 65 12 99 9 131/73(97) NSR 0 (11) 9(A) , No pain 14:42:48 65 12 99 12 136/76(112) NSR 0 (11) 9(A) , No pain Medications Time Medication Route Dose Verified Delivered Reason Notes Effectiveness by by 13:44:05 0.9% NaCl I.V. 100 Alberto Alberto Per physician ml/hr rickie Sotelo RN RN 13:44:17 Oxygen etCO2 2 Alberto Alberto Per physician Nasal l/min rickie Sotelo cannula RN RN 13:44:30 Lidocaine 2% added 20ml Alberto Alberto for local to vial lorkarlene Sotelo anesthetic field FLORES RN 13:44:43 Heparin Flush added 2 Alberto Alberto used for Bag to bags rickie Sotelo procedure (1000units/500ml RN RN NS) 14:14:38 Versed I.V. 2 mg Alberto Alberto for sedation rickie Sotelo RN RN 14:14:46 Fentanyl I.V. 100 Alberto Alberto for sedation mcg rickie Sotelo RN RN 14:24:37 Heparin Bolus I.V. 5000 Alberto Alberto for units rickie Sotelo anticoagulation RN RN 14:24:54 Integrilin I.V. 9.5 Alberto Alberto for (Bolus 2mg/ml) ml rickie Sotelo antiplatelet RN RN therapy 14:25:04 Integrilin wasted 0.5 Ablerto Alberto to sharp's (Bolus 2mg/ml) ml rickie Sotelo RN RN 14:43:19 Brilinta P.O. 180 Alberto Alberto for mg rickie Sotelo antiplatelet RN RN therapy Procedure Log Time Note 13:21:05 Diagnostic Cath Status : Elective 13:21:47 Dar Gentile RN sent for patient. Start room use. 13:21:48 Time tracking: Regular hours (M-F 7:00 - 5:00) 13:21:52 Plan of Care:Hemodynamics will remain stable., Cardiac rhythm will remain stable., Comfort level will be maintained., Respiratory function will remain adequate., Patient/ family verbilizes understanding of procedure., Procedure tolerated without complication., Recovers from procedure without complications.. 13:42:47 Patient received from Pre/Post Procedure Room to CCL 2 Alert and oriented. Tansferred to table in Supine position. 13:42:48 Warm blankets applied, and cirilo hugger turned on for patient comfort. 13:42:48 Correct patient and procedure confirmed by team. 13:42:49 Signed procedure consent form obtained from patient. 13:42:50 ECG and BP/O2 sat monitors applied to patient. 13:42:51 Baseline sample Acquired. 13:42:51 Vital chart was started 13:42:56 Rhythm: sinus rhythm 13:42:57 Full Disclosure recording started 13:43:04 H&P Date Dictated: 09/13/2017 Within 30 days and on chart., H&P Addendum completed by physician on day of procedure. (MUST COMPLETE FOR ALL OUTPATIENTS). 13:43:05 Pre-procedure instructions explained to patient. 13:43:06 Pre-op teaching completed and patient verbalized understanding. 13:43:07 Family in waiting room. 13:43:09 Patient NPO since Midnight. 13:43:11 Is the patient allergic to Iodine/contrast media? No. 13:43:12 Was the patient premedicated? No 13:43:36 Is patient on blood thinner?No 13:43:37 Patient diabetic? Yes. 13:43:38 If diabetic: On Metformin? Yes 13:43:40 If on Metformin: Last Dose? 09/13/2017 13:43:44 Previous problem with sedation/anesthesia? No ? 13:43:47 Snore? Yes 13:43:48 Sleep apnea? No 13:43:49 Deviated septum? No 13:43:50 Opens mouth fully? Yes 13:43:50 Sticks out tongue? Yes 13:43:53 Airway obstruction? No ? 13:43:55 Dentures? No ? 13:44:00 Pre procedure: right dorsailis pedis pulse 2+ Normal; easily identifiable; not easily obliterated 13:44:02 Pre procedure: left dorsailis pedis pulse 2+ Normal; easily identifiable; not easily obliterated 13:44:05 0.9% NaCl 100 ml/hr I.V. was administered by Alberto Sotelo RN; Per physician; 13:44:06 Patient pain scale 0/10 ?. 13:44:15 IV patent on arrival in left forearm with 0.9% NaCl at [facility]. 13:44:17 Oxygen 2 l/min etCO2 Nasal cannula was administered by Alberto Sotelo RN; Per physician; 13:44:17 Lab results completed and on chart. 13:44:22 Right groin area was prepped with chlora-prep and draped in sterile fashion 13:44:23 Alarms reviewed by R. N. 13:44:23 Sharps counted by scrub and verified by R.N. 13:44:30 Lidocaine 2% 20ml vial added to field was administered by Alberto Sotelo RN; for local anesthetic; 13:44:43 Heparin Flush Bag (1000units/500ml NS) 2 bags added to field was administered by Alberto Sotelo RN; used for procedure; 13:58:33 Physician arrived 13:58:34 --------ALL STOP TIME OUT------ 13:58:34 Final Timeout: patient, procedure, and site verified with staff and physician. All members of the team are in agreement. 13:58:37 Right groin site verified by team. 13:58:42 Physical assessment completed. ASA score P 2 - A patient with mild systemic disease as per Khoa Woodard MD. 13:58:52 Sedation plan: IV Moderate Sedation Medication:Versed, Fentanyl 13:58:56 Use device set Femoral Dx 13:58:58 ACIST Syringe (93565) opened to sterile field. 13:58:58 Bag Decanter (2002) opened to sterile field. 13:58:58 Medline Cath Pack ([id number]) opened to sterile field. 13:58:59 DIAGNOSTIC WIRE .035 260cm J wire (384456) opened to sterile field. 13:59:00 ACIST Hand Control (79429) opened to sterile field. 13:59:01 ACIST Manifold (77609) opened to sterile field. 13:59:02 DIAGNOSTIC Multipack 5Fr catheter set (ZA5870) opened to sterile field. 13:59:03 Tegaderm 4 x 4 (1626W) opened to sterile field. 13:59:06 SHEATH Prelude 5Fr 0.035 ([id number]-1F-75-035) opened to sterile field. 14:14:38 Versed 2 mg I.V. was administered by Alberto Sotelo RN; for sedation; 14:14:46 Fentanyl 100 mcg I.V. was administered by Alberto Sotelo RN; for sedation; 14:15:04 Procedure started. 14:15:10 Local anesthetic to right femoral artery with Lidocaine 2% by Khoa Woodard MD.INITIAL ACCESS ONLY 14:15:18 A 5 Fr sheath was inserted into the Right Femoral artery 14:17:18 A MULTIPACK JL 4.0 5Fr catheter was advanced over the wire and used for Left Coronary Angiography. 14:17:34 LCA angiography performed. 14:18:35 Injector settings: Ml/sec: 3, Volume: 6, 14:19:07 Catheter removed. 14:19:13 A MULTIPACK 3DRC 5Fr catheter was advanced over the wire and used for Right Coronary Angiography. 14:20:00 RCA angiography performed. 14:20:03 Injector settings: Ml/sec: 3, Volume: 6, 14:22:24 Catheter removed. 14:22:34 A MULTIPACK Pigtail 5 Fr catheter was advanced over the wire and used for LV Angiography. 14:23:22 LV hemodynamics recorded. 14:23:23 LV gram done using BAUTISTA 14:23:25 Injector settings: Ml/sec: 5, Volume: 15, 14:23:34 EF : 50 % 14:23:44 Catheter removed. 14:23:45 Proceeding to intervention. 14:24:14 WHISPER 300cm guide wire ([id number]) opened to sterile field. 14:24:15 INFLATOR Merit BasixCompak (WD6923) opened to sterile field. 14:24:15 SHEATH 6Fr Prelude ([id number]) opened to sterile field. 14:24:26 Sheath upsized to a 6 Fr Short. 14:24:37 Heparin Bolus 5000 units I.V. was administered by Alberto Sotelo RN; for anticoagulation; 14:24:54 Integrilin (Bolus 2mg/ml) 9.5 ml I.V. was administered by Alberto Sotelo RN; for antiplatelet therapy; 14:25:04 Integrilin (Bolus 2mg/ml) 0.5 ml wasted was administered by Alberto Sotelo RN; to kayley's; 14:25:51 GUIDE 6FR HS I catheter (LA6HSI) opened to sterile field. 14:25:59 6 Fr hs 1 guide catheter was inserted over the wire 14:26:45 whisper wire advanced. 14:29:06 Wire advanced across lesion. 14:30:03 Place stent Inflation Number: 1 A INTEGRITY OTW 2.5 x 14 stent ([id number]) was prepped and advanced across the R PDA. The stent was deployed at 14 NAA for 0:30 (min:sec). 14:31:36 Inflation number: 2 The stent balloon was then re-inflated across the R PDA to 6 NAA for 0:30 (min:sec). 14:32:07 Stent catheter was removed intact over wire. 14:35:10 Place stent Inflation Number: 3 A INTEGRITY OTW 3.0 X 12 stent ([id number]) was prepped and advanced across the R PDA. The stent was deployed at 15 NAA for 0:30 (min:sec). 14:36:41 Stent catheter was removed intact over wire. 14:38:49 Place stent Inflation Number: 4 A INTEGRITY OTW 2.5 x 14 stent ([id number]) was prepped and advanced across the R PDA. The stent was deployed at 14 NAA for 0:30 (min:sec). 14:39:35 Inflation number: 5 The stent balloon was then re-inflated across the R PDA to 14 NAA for 0:30 (min:sec). 14:40:21 Stent catheter was removed intact over wire. 14:40:21 Wire removed. 14:40:22 Guide catheter removed. 14:40:31 Sheath removed intact; hemostasis achieved with Exoseal to the Right Femoral artery. 14:40:33 Procedure ended.(Physican Out) 14:41:06 Fluoroscopy time 07.40 minutes. 14:41:10 Fluoroscopy dose: 2017 mGy 14:41:10 Flurop Dose total: 2016 14:41:14 Contrast amount:Isovue 300 145ml. 14:41:16 Sharps counted by scrub and verified by R.N. 14:41:17 Insertion/operative site no bleeding no hematoma. 14:41:19 Post-op/insertion site Right Femoral artery dressed using a 4 x 4 and Tegaderm. 14:41:22 Post right femoral artery:stable 14:41:46 Post Procedure Pulses reassessed and unchanged 14:41:49 Post procedure rhythm: unchanged. 14:41:51 Estimated blood loss: 5 ml 14:41:53 Post procedure instruction explained to patient.Patient verbalizes understanding. 14:42:19 Patient needs reinforcement of post procedure teaching. 14:42:25 Procedure Complication : No complications 14:42:27 Vital chart was stopped 14:42:43 Report given to Pre/Post Procedure Room. 14:42:45 Patient transfered to Pre/Post Procedure Room with Stretcher. 14:42:47 Procedure ended. 14:42:47 Full Disclosure recording stopped 14:42:58 ACC-PCI Only Patient was given prescriptions, or instructed by Khao Woodard MD to start/continue the following medications upon discharge: Brilinta 14:43:00 End room use (Document Last) 14:43:19 Brilinta 180 mg P.O. was administered by Alberto Sotelo RN; for antiplatelet therapy; 14:44:42 EXOSEAL 6Fr (EX600) opened to sterile field. Intervention Summary Intervention Notes Time ActionType Lesion and Equipment Action# Pressure Duration Attributes Used 14:30:03 Place stent R PDA INTEGRITY 1 14 00:30 OTW 2.5 x 14 stent ([id number]) 14:31:36 Reinflate R PDA INTEGRITY 2 6 00:30 stent OTW 2.5 x balloon 14 stent ([id number]) 14:35:10 Place stent R PDA INTEGRITY 3 15 00:30 OTW 3.0 X 12 stent ([id number]) 14:38:49 Place stent R PDA INTEGRITY 4 14 00:30 OTW 2.5 x 14 stent ([id number]) 14:39:35 Reinflate R PDA INTEGRITY 5 14 00:30 stent OTW 2.5 x balloon 14 stent ([id number]) Device Usage Item Name Manufacture Quantity Catalog Number Hospital Part Current M inimal Lot# / Charge Number Stock Stock Serial# Code ACIST Syringe Acist 1 55102 340460 676886 810639 2 0 (41503) Medical [employer] Bag Decanter Microtek 1 254238 90512 960335 5 () Medical Inc. Medline Cath Cardinal 1 [id number] 816693 35615 659115 5 [facility] ([id number]) DIAGNOSTIC WIRE [address] [place] 1 820993 391354 618241 177568 3 0 .035 260cm J wire (696037) ACIST Hand Acist 1 45471 173252 416870 722072 5 Control (14845) Medical Systems Inc ACIST Manifold Acist 1 72816 807899 094430 734603 5 (42528) Medical Systems Inc DIAGNOSTIC Cardinal 1 [id number] 013766 24133 992249 3 0 Multipack 5Fr Health catheter set (UA6009) Tegaderm 4 x 4 3M 1 1626W 225467 177065 556093 5 (1626W) SHEATH Prelude Merit 1 SEP-8U-14-035 038523 455936 710498 5 5Fr 0.035 Medical (VJI-4E-69-035) MULTIPACK JL Cardinal 1 095578 5 4.0 5Fr Health catheter MULTIPACK 3DRC Cardinal 1 668612 5 5Fr catheter Health MULTIPACK Cardinal 1 278339 5 Pigtail 5 Fr Health catheter WHISPER 300cm Tay 1 [id number] 903288 549652 210942 5 guide wire Vascular ([id number]) INFLATOR Merit Merit 1 XW0463 887791 127284 690561 1 5 BasixCompak Medical (PC7231) SHEATH 6Fr Merit 1 [id number] 153789 422853 842498 5 Prelude Medical ([id number]) GUIDE 6FR HS I Medtronic 1 LA6HSI 558069 19297 123690 1 catheter (LA6HSI) INTEGRITY OTW Medtronic 2 [id number] 597473 599020 6 [id number] 2.5 x 14 stent [id number] ([id number]) INTEGRITY OTW Medtronic 1 [id number] 861785 037128 1 [id number] 3.0 X 12 stent ([id number]) EXOSEAL 6Fr Cardinal 1 EX600 822304 551610 235500 1 0 (EX600) Health Signature Audit [place] Stage Time Signature Unsigned Intra-Procedure 09/13/2017 Georgina Mcdermott 2:45:14 PM RT(R) Signatures Monitor : Georgina Mcdermott RT Signature : Date : Time : [place] [address] [place] [address]
[~2017-09-13 10:56] MED LIST changes: +NEPHRO-VITE RX1 TAB PO; +SENSIPAR30 MG PO
[2017-09-13 11:32] VITALS: BP 126/64; Ht 180.3 cm; Wt 107.7 kg
[2017-09-13 11:42] LABS: BASOPHILS 0.4 % (0-2); EOSINOPHILS 2.5 % (0-7); HEMATOCRIT 33.6 % (42.0-54.0); IMMATURE GRANULOCYTES 1.3 % (0-5); LYMPHOCYTES 21.6 % (15-50); MCH 31.2 pg (26.0-34.0); MCHC 32.7 g/dL (31.0-37.0); MCV 95.2 fL (80.0-100.0); MONOCYTES 8.4 % (2-11); NEUTROPHILS 65.8 % (40-80); PLATELET COUNT 176 10x3/uL (130-400); RBC 3.53 10x6/uL (4.20-6.10); RDW 14.6 % (11.5-14.5); WBC 6.8 10x3/uL (4.8-10.8)
[2017-09-13 11:59] LABS: ANION GAP 16.3 mmol/L (8-16); CALCIUM 9.2 mg/dL (8.5-10.1); CARBON DIOXIDE 26.1 mmol/L (21.0-32.0); CREATININE - SERUM 7.4 mg/dL (0.6-1.3); POTASSIUM - SERUM 4.4 mmol/L (3.5-5.1)
[2017-11-09] MEDS ORDERED: BRILINTA90 MG PO (16:28)
== END 2017-09-13 18:35 | disposition home or self-care (01) ==
LOC: D.CATH 10:56
PROVIDERS: Internal Medicine Interventional Cardiology
DX: I25.119 Atherosclerotic heart disease of native coronary artery with unspecified angina pectoris (principal); Z01.812 Encounter for preprocedural laboratory examination

== ENCOUNTER 2017-11-13 05:55 | Day surgery (SDC) | payer MEDICAID ==
[2017-11-09 17:00] LABS: BASOPHILS 0.3 % (0-2); EOSINOPHILS 1.6 % (0-7); HEMATOCRIT 31.6 % (42.0-54.0); HEMOGLOBIN 10.7 g/dL (13.5-17.5); LYMPHOCYTES 14.5 % (15-50); MCH 31.7 pg (26.0-34.0); MCHC 33.9 g/dL (31.0-37.0); MCV 93.5 fL (80.0-100.0); MEAN PLATELET VOLUME 10.7 fL (7.4-10.4); NEUTROPHILS 76.6 % (40-80); PLATELET COUNT 182 10x3/uL (130-400); RBC 3.38 10x6/uL (4.20-6.10); RDW 13.6 % (11.5-14.5); WBC 6.8 10x3/uL (4.8-10.8)
[2017-11-09 17:21] LABS: ANION GAP 14.5 mmol/L (8-16); CALCIUM 8.5 mg/dL (8.5-10.1); CARBON DIOXIDE 26.5 mmol/L (21.0-32.0); CREATININE - SERUM 4.8 mg/dL (0.6-1.3); INR 1.09 (0.85-1.17); PROTIME 13.7 SECONDS (11.6-15.0)
[2017-11-09 17:23] LABS: APTT 106.1 SECONDS (22.8-39.4)
[~2017-11-13] VITALS: Ht 177.8 cm; Wt 106.6 kg
--- NOTE | ~2017-11-13 | OP ---
PATIENT NAME: NADIA WHITT MEDICAL RECORD: [id number] :69 LOCATION:D.OPS ADMISSION DATE: SURGEON: CHIQUITA CRAIG MD DATE OF OPERATION: 11/13/2017 PREOPERATIVE DIAGNOSES: ESRD and dependence on hemodialysis. POSTOPERATIVE DIAGNOSES: ESRD and dependence on hemodialysis. OPERATION PERFORMED: Creation of a distal brachial artery to median cubital vein AV fistula. SURGEON: Chiquita Craig MD ANESTHESIA: General with LMA per ACOUSTICAL ENGINEER. REFERRING PHYSICIAN: Demetrius Rivero MD PREOPERATIVE NOTE: Mr. Whitt is a 52-year-old white male diabetic with coronary artery disease, recent status post coronary artery angioplasty and stenting. He is on hemodialysis with a right TDC and is brought to the OR now for creation of a fistula in his left arm. DESCRIPTION OF PROCEDURE: Under general anesthesia, the patient was prepped and draped in sterile manner. Nitroglycerin paste was applied to the skin of the forearm and arm and a Yesi drain used as a proximal venous tourniquet. Duplex ultrasound examination revealed predominant drainage via the basilic vein above the antecubital space though there is a significant cephalic vein present in the upper arm as well. The cephalic vein in the forearm was potentially suitable for an anastomosis, however, the radial artery at the wrist was quite small and exhibited some calcifications on ultrasound. I elected to try for a bidirectional proximal radial artery fistula. I made a longitudinal incision in the forearm and this was extended proximally and medially in a hockey stick shape, and the brachial artery and its bifurcation and branches were exposed and controlled with Silastic loops. The median cubital and median antebrachial veins and deep communicating vein were dissected. I found that the brachial artery bifurcation was a bit high to be able to do an anastomosis to the proximal radial artery and instead the anastomosis to the deep vein branch was done to the distal brachial artery. The vein was controlled proximally and distally. It was flushed with heparinized saline. Coronary artery dilators were used to break up valves in the distal portion of the forearm, and the artery was opened and flushed proximally and distally with heparinized saline. About a 5-mm arteriotomy was made and an end-to-side, end-of-vein to [id number]-[id number] anastomosis was performed with running 6-0 Prolene. The suture line was treated with Evicel and after 2 minutes, the clamps and loops were loosened, and excellent flow was established in the new fistula, which at least initially is bidirectional. There was good preservation of flow in the brachial and distal arteries as well by Doppler. The wound was irrigated with saline. Hemostasis was deemed adequate. The wound was closed without the use of a drain approximating soft tissues with interrupted 3-0 Vicryl and the skin with running intracuticular 4-0 Monocryl. The skin was sealed with Dermabond glue and dressed with Maxorb Ag, Tegaderm, and Cavilon skin prep. Awakened and taken to the recovery room in stable condition. OPERATIVE REPORT [id number] NADIA WHITT The patient will go home today and return to see me in my office next week. He is given a prescription for 14 [place] 5/325 to take 1 p.o. every 4 hours p.r.n. pain. He will resume activities as tolerated. He did have a regional nerve block for the procedure today, and he will wear a sling until that wears off. TRANSINT:[id number] Voice Confirmation ID: [id number] DOCUMENT ID: [id number] CHIQUITA CRAIG MD at 1747 CC: DEMETRIUS RIVERO [phone] DICTATION DATE: 11/13/17 1111 [place] OPERATOR: 11/13/17 1355 [facility] 11/13/17 [facility] [address] [place] [address]
[~2017-11-13 05:55] MED LIST changes: +BRILINTA90 MG PO
[2017-11-13 06:17] VITALS: Ht 177.8 cm; Wt 106.6 kg
[2017-11-13] MEDS ORDERED: HYDROCODON-ACE1 EAC7 PO (10:58)
== END 2017-11-13 15:45 | disposition home or self-care (01) ==
LOC: D.OPS 05:55
PROVIDERS: Internal Medicine Nephrology
DX: E11.22 Type 2 diabetes mellitus with diabetic chronic kidney disease (principal); N18.6 End stage renal disease; Z99.2 Dependence on renal dialysis; I25.10 Atherosclerotic heart disease of native coronary artery without angina pectoris; Z95.5 Presence of coronary angioplasty implant and graft; Z01.812 Encounter for preprocedural laboratory examination

== ENCOUNTER 2018-01-22 08:10 | Day surgery (SDC) | payer OTHER ==
[2018-01-21 15:59] LABS: BASOPHILS 0.3 % (0-2); EOSINOPHILS 1.6 % (0-7); HEMATOCRIT 33.6 % (42.0-54.0); HEMOGLOBIN 11.1 g/dL (13.5-17.5); IMMATURE GRANULOCYTES 0.5 % (0-5); LYMPHOCYTES 16.9 % (15-50); MCH 31.6 pg (26.0-34.0); MCV 95.7 fL (80.0-100.0); MONOCYTES 8.1 % (2-11); NEUTROPHILS 72.6 % (40-80); PLATELET COUNT 170 10x3/uL (130-400); RBC 3.51 10x6/uL (4.20-6.10); RDW 14.6 % (11.5-14.5); WBC 5.8 10x3/uL (4.8-10.8)
[2018-01-21 16:07] LABS: APTT 29.8 SECONDS (22.8-39.4); INR 1.02 (0.85-1.17)
[2018-01-21 16:12] LABS: ANION GAP 12.6 mmol/L (8-16); CALCIUM 8.9 mg/dL (8.5-10.1); CARBON DIOXIDE 29.3 mmol/L (21.0-32.0); CREATININE - SERUM 4.4 mg/dL (0.6-1.3); POTASSIUM - SERUM 4.9 mmol/L (3.5-5.1)
[~2018-01-22] VITALS: Ht 177.8 cm; Wt 117.9 kg
--- NOTE | ~2018-01-22 | OP ---
PATIENT NAME: NADIA WHITT MEDICAL RECORD: [id number] :69 LOCATION:D.OPS ADMISSION DATE: SURGEON: CHIQUITA CRAIG MD DATE OF OPERATION: 01/22/2018 REFERRING PHYSICIAN: Demetrius Rivero MD PREOPERATIVE DIAGNOSIS: ESRD, dependence on hemodialysis. OPERATION PERFORMED: Creation of a left brachial artery to translocated basilic vein arteriovenous fistula. SURGEON: Chiquita Craig MD ANESTHESIA: General per R D MANAGER. PREOPERATIVE NOTE: Mr. Whitt is a 52-year-old white male patient from [place] who, several weeks ago, had a Mitchel-type AV fistula created between the brachial artery and the basilic vein in the left upper extremity that was done to prepare the basilic vein for creation of a translocated fistula with the basilic vein having been quite small. It is now large and very suitable for the translocation procedure. The course of the basilic vein was mapped with ultrasound and an incision was made over it from the axilla to the antecubital space and into the prior forearm vertical incision. The vein was exposed and mobilized fully all the way to the axilla. The vein was treated with topical papaverine and a tunnel was created from the upper arm down to the antecubital space. The vein was clamped near the arterial anastomosis. The vein was then divided and bevelled and then pulled through the subcutaneous tunnel with care not to twist it. An end-to-end sutured anastomosis with 7-0 Prolene was then done, and when the clamps were released, excellent flow was immediately established. There was persistence of flow in the brachial artery with and without fistula occlusion and there was actually good pulsatile flow in the radial artery with and without the fistula occluded. The wounds were irrigated with saline. An additional incision had to be made on the anterior arm, about mid humeral level, to control bleeding from vessels within the tunnel. The wounds were closed with interrupted 3-0 Vicryl, running intracuticular 4-0 Monocryl, and Dermabond glue. Standard dressings were applied. The patient was awakened and taken to the recovery room. Blood loss during the operation was about 10 cc, none replaced. The patient is to be discharged to home today with a prescription for [place] 5/325 to take one or two p.o. q. 4 hours p.r.n. pain. He can leave the original operative dressing in place until he comes back in to see us in the office on of this week, which is just day after tomorrow. He will resume his usual renal diet, dialysis schedule, same home medications, etc. TRANSINT:[id number] Voice Confirmation ID: [id number] DOCUMENT ID: [id number] OPERATIVE REPORT [id number] NADIA WHITT JAMES MD at 1132 CC: DEMETRIUS RIVERO [phone] DICTATION DATE: 01/22/18 161 CHIEF MECHANICAL OFFICER: 01/22/18 1841 [facility] 01/22/18 [place] [id number] [place] [id number]
[~2018-01-22 08:10] MED LIST changes: +GLIMEPIRIDE1 MG PO; +HYDROCODON-ACE1 EAC7 PO
[2018-01-22 08:44] VITALS: BP 153/88; Ht 177.8 cm; Wt 117.9 kg
== END 2018-01-22 17:35 | disposition home or self-care (01) ==
LOC: D.OPS 08:10
PROVIDERS: Surgery
DX: N18.6 End stage renal disease (principal); Z99.2 Dependence on renal dialysis; Z01.812 Encounter for preprocedural laboratory examination

== ENCOUNTER 2018-03-21 05:45 | Outpatient (CLI) | payer MEDICAID ==
[~2018-03-21] VITALS: Ht 180.3 cm; Wt 118.2 kg
[2018-03-21 06:24] LABS: APTT 29.9 SECONDS (22.8-39.4); INR 1.08 (0.85-1.17); PROTIME 13.5 SECONDS (11.6-15.0)
[2018-03-21 06:39] LABS: ANION GAP 17.6 mmol/L (8-16); CALCIUM 9.5 mg/dL (8.5-10.1); CARBON DIOXIDE 24.1 mmol/L (21.0-32.0); CREATININE - SERUM 6.2 mg/dL (0.6-1.3); POTASSIUM - SERUM 4.7 mmol/L (3.5-5.1)
[2018-03-21 06:48] VITALS: Ht 180.3 cm; Wt 118.2 kg
[2018-03-21 07:38] LABS: HEMATOCRIT 36.9 % (42.0-54.0); HEMOGLOBIN 12.5 g/dL (13.5-17.5); LYMPHOCYTES 31.7 % (15-50); MCH 32.1 pg (26.0-34.0); MCHC 33.9 g/dL (31.0-37.0); MCV 94.6 fL (80.0-100.0); MEAN PLATELET VOLUME 10.8 fL (7.4-10.4); NEUTROPHILS 61.9 % (40-80); PLATELET COUNT 133 10x3/uL (130-400); RDW 13.9 % (11.5-14.5); WBC 5.3 10x3/uL (4.8-10.8)
--- NOTE | 2018-03-21 10:45 | NUR ---
PROCEDURE CANCELLED BY DR. PATHAK, [place] 75MG [place] 81[place] [facility] [place] [place] [address]
== END 2018-03-21 10:35 | disposition home or self-care (01) ==
LOC: D.SP 05:45 → D.RAD 08:00 → D.SP 10:35
PROVIDERS: Specialist
DX: E11.51 Type 2 diabetes mellitus with diabetic peripheral angiopathy without gangrene (principal); I70.209 Unspecified atherosclerosis of native arteries of extremities, unspecified extremity

== ENCOUNTER 2018-04-17 07:07 | Inpatient (IN) | payer MEDICAID ==
[2018-04-17] VITALS (18 sets, daily range): BP systolic 128–171; BP diastolic 68–96; BMI 36.7
[~2018-04-17] VITALS: Ht 180.3 cm; Wt 108.9 kg
[2018-04-17 07:59] LABS: BASOPHILS 0.5 % (0-2); EOSINOPHILS 2.1 % (0-7); HEMOGLOBIN 10.5 g/dL (13.5-17.5); IMMATURE GRANULOCYTES 0.1 % (0-5); LYMPHOCYTES 21.9 % (15-50); MCH 30.6 pg (26.0-34.0); MCHC 32.8 g/dL (31.0-37.0); MCV 93.3 fL (80.0-100.0); MEAN PLATELET VOLUME 11.1 fL (7.4-10.4); MONOCYTES 7.9 % (2-11); NEUTROPHILS 67.5 % (40-80); PLATELET COUNT 154 10x3/uL (130-400); RBC 3.43 10x6/uL (4.20-6.10); RDW 13.9 % (11.5-14.5); WBC 7.6 10x3/uL (4.8-10.8)
[2018-04-17 08:09] LABS: INR 1.04 (0.85-1.17); PROTIME 13.2 SECONDS (11.6-15.0)
[2018-04-17 08:20] LABS: ANION GAP 23.1 mmol/L (8-16); BILIRUBIN - TOTAL 0.47 mg/dL (0.2-1.3); CARBON DIOXIDE 20.8 mmol/L (21.0-32.0); CREATININE - SERUM 8.3 mg/dL (0.6-1.3); MAGNESIUM - SERUM 2.2 mg/dL (1.8-2.4); POTASSIUM - SERUM 4.9 mmol/L (3.5-5.1); PROTEIN - SERUM 7.7 g/dL (6.4-8.2)
--- NOTE | 2018-04-17 12:22 | NUR ---
PATIENT TO IR VIA STRETCHER.
--- NOTE | 2018-04-17 14:41 | NUR ---
patient to go from ir to icu bed 2314 per ir staff, report given to melva shelton icu.
--- NOTE | 2018-04-17 15:39 | NUR ---
1500 PT RECIEVED TO ROOM, LETHARGIC FROM IR MEDICATIONS BUT AROUSES TO VOICE AND ANSWERS QUESTIONS SOMEWHAT BEFORE FALLING BACK ASLEEP, O2 2L NC, R HAND PIV WITH REPRO AT SET RATE AND WILL STOP AFTER THIS BAG, NS KVO WITH INFUSION, R GROIN SITE SOFT, SMALL QUARTER SIZED AMOUNT OF BLOOD ON DRESSING, SITE SOFT, PULSES PALPABLE AND ALSO DOPPLERED, UNABLE TO OBTAIN HOME MED INFO, SEE ADMISSION ASSESSMENT FOR DETAILS [address] ROTHMAN OFFICE AND NOTIFIED OF PT ARRIVAL, KEVEN WITH IR NOTIFIED DR VELASQUEZ OF CONSULT
--- NOTE | 2018-04-17 17:48 | NUR ---
ALL PULSES REMAIN PALPABLE, PT REMAINS LETHARGIC FROM MEDICATIONS IN IR BUT AWAKENS AND FOLLOWS COMMANDS EASILY, DENIES PAIN OR ALL NEEDS, GROIN SITE SOFT, NO FURTHER BLOOD ON DRESSING, NO SIGNS OF HEMATOMA, DOPPLERED PULSES EASILY, CALL LIGHT WITHIN REACH
--- NOTE | 2018-04-17 18:04 | MORECARE ---
CASE MANAGEMENT DISCHARGE SUMMARY PATIENT: NADIA WHITT UNIT: [id number] ADM DATE: 04/17/18 AGE: 52 : 69 SEX: M ROOM/BED: D.2314 AUTHOR: BRIAN ELLSWORTH PHYSICIAN: REFERRING PHYSICIAN: TREASURE RIVERO MD DATE OF SERVICE: 04/17/18 Discharge Plan Patient Name: NADIA WHITT [facility] [facility] 1965 Planned Disposition: Anticipated Discharge Date: Discharge Date: Expected LOS: Initial Reviewer: [email or web address] Initial Review Date: 04/17/2018 Generated: 04/17/18 7:04 pm Comments DCP- Discharge Planning Updated by [email or web address]: Dianna Bustos on 04/17/18 4:[address] CM will do intake discharge planning assessment at later time. Patient is currently drowsy from procedure. CM will continue to follow and assist as needed with discharge planning / needs Patient Name: NADIA WHITT Page [id number] at 1804 All edits/amendments must be made on the electronic document DICTATION DATE: 04/17/181802 BOARD CERTIFIED MUSIC THERAPIST: ANJU 04/17/181802 RPT#: [id number] DC DATE: STATUS: ADM IN [facility] [address] [place] [address] END OF REPORT
--- NOTE | 2018-04-17 19:00 | NUR ---
REPORT RECEIVED CARE ASSUMED. PT AAOX4 SPEECH CLEAR. NO C/O AT THIS TIME. PT CHEERFUL AND COOPERATIVE. NOTE RIGHT FOOT WITH DISCOLORATION TO TOES AND TOES COOL TO TOUCH. FOOT WARM. PEDAL PULSES WEAKLY PALPATED EASILY CONFIRMED WITH DOPPLER. PT MONITORED PER STANDARD ICU PROTOCOL WITH ALL ALARMS SET VERIFIED AND AUDIBLE AT NURSES STATION. BED IN LOW POSITION CALL LIGHT IN REACH
--- NOTE | 2018-04-17 19:00 | NUR ---
LEFT GROIN DRESSING MARKED AREA SOFT AND SUPPLE. NO ACTIVE BLEEDING
--- NOTE | 2018-04-17 22:07 | NUR ---
CALL RECEIVED FROM DR. VELASQUEZ. DISCUSSED B/P READINGS, PULSES AND ASSESSMENT OF FOOT. NEW ORDERS RECEIVED, REPEATED AND VERIFIED
--- NOTE | 2018-04-17 23:00 | NUR ---
SHIFT REASSESSMENT COMPLETED SEE FLOWSHEET. NO SIGNIFICANT CHANGES. SEE FLOWSHEET. PT HAS NOT BEEN SLEEPING THIS SHIFT WILL CONTINUE TO MONITOR
[2018-04-18] VITALS (23 sets, daily range): BP systolic 95–165; BP diastolic 52–87; Ht 180.3 cm; Wt 108.9 kg
--- NOTE | 2018-04-18 00:40 | NUR ---
CALL PLACE ANSWERING SERVICE FOR DR. ST.
--- NOTE | 2018-04-18 01:16 | NUR ---
CALL PLACED TO YASMEEN PORRAS APN, NO CALL RECEIVED FRO DR. ST
--- NOTE | 2018-04-18 01:35 | NUR ---
3RD CALL TO ANSWERING SERVICE TO OBTAIN PAIN MEDICATION PER PT REQUEST.
--- NOTE | 2018-04-18 01:40 | NUR ---
CALL RECEIVED FROM YASMEEN PORRAS APN DISCUSSED PT'S STATUS AND REQUEST FOR PAIN MEDICATION. NEW ORDERS RECEIVED, REPEATED AND VERIFIED.
--- NOTE | 2018-04-18 02:15 | NUR ---
PT AWAKE STATING THE PAIN MEDICATION IS SLOW TO WORK THIS TIME. OFFER OF THE 2ND NORCO MADE. WILL ADMINISTER PER PT REQUEST.
--- NOTE | 2018-04-18 03:18 | NUR ---
SHIFT REASSESSMENT COMPLETED PT IS RESTING MORE COMFORTALBLY ALTHOUGH STILL HAVING SOME PAIN IN RIGHT ROOT. PULSES PALPABLE WEAK, CONFIRMED WITH DOPPLER. VISUALLY NO CHANGE IN RIGHT FOOT. DRESSING TO LEFT GROIN UNCHANGED. SOFT AND SUPPLE
--- NOTE | 2018-04-18 04:30 | NUR ---
Dr. Estrada contacted reguading further pain management medications. New orders received, repeated and verified.
[2018-04-18 04:35] LABS: BASOPHILS 0.4 % (0-2); EOSINOPHILS 2.7 % (0-7); HEMATOCRIT 30.7 % (42.0-54.0); HEMOGLOBIN 10.2 g/dL (13.5-17.5); IMMATURE GRANULOCYTES 0.2 % (0-5); LYMPHOCYTES 15.9 % (15-50); MCH 31.2 pg (26.0-34.0); MCHC 33.2 g/dL (31.0-37.0); MCV 93.9 fL (80.0-100.0); MEAN PLATELET VOLUME 11.2 fL (7.4-10.4); MONOCYTES 8.7 % (2-11); NEUTROPHILS 72.1 % (40-80); PLATELET COUNT 169 10x3/uL (130-400); RBC 3.27 10x6/uL (4.20-6.10); RDW 13.9 % (11.5-14.5)
[2018-04-18 04:43] LABS: WBC 5.5 10x3/uL (4.8-10.8)
[2018-04-18 05:08] LABS: ANION GAP 20.6 mmol/L (8-16); BILIRUBIN - TOTAL 0.44 mg/dL (0.2-1.3); CALCIUM 8.2 mg/dL (8.5-10.1); CARBON DIOXIDE 22.1 mmol/L (21.0-32.0); CREATININE - SERUM 8.5 mg/dL (0.6-1.3); PROTEIN - SERUM 7.2 g/dL (6.4-8.2)
[2018-04-18 05:13] LABS: ALBUMIN 2.8 g/dL (3.4-5.0)
[2018-04-18 05:23] LABS: POTASSIUM - SERUM 5.7 mmol/L (3.5-5.1)
--- NOTE | 2018-04-18 07:15 | NUR ---
PATIENT RESTING IN BED WITH NORMAL RESPIRATIONS. AWAKE ALERT AND ORIENTED WITH STABLE VS. LUNG POWELL CLEAR. NITRO OINTMENT IS APPLIED TO RIGHT FOOT LIBERALLY TO HELP PERFUSION OF TOES. NO COMPLAINTS OF PAIN AT THE MOMENT. PEDAL PULSE WEAK BUT PRESENT. WILL CONTINUE TO MONITOR.
--- NOTE | 2018-04-18 09:00 | NUR ---
ADMINISTERING PRN MORPHINE FOR PAIN. RENVELLA AND VITAMIN NOT IN PYXIS OR PT CASSETTE. CALLED PHARMACY TO BRING.
--- NOTE | 2018-04-18 10:18 | NUR ---
ADMINISTERED RENVELA AND VITAMIN AT THIS TIME. PATIENT RESTING IN BED WITH LESS C/O PAIN SINCE MORPHINE DOSE.
--- NOTE | 2018-04-18 11:28 | NUR ---
CALLED DR. WEBB'S OFFICE ABOUT DIALYSIS ORDERS. LAUNCH ENGINEER STATED SHE WOULD HAVE RAY GOODE CALL ME.
--- NOTE | 2018-04-18 12:48 | NUR ---
SPOKE TO RUSSEL ABOUT DIALYSIS ORDERS. STATED SHE WILL PUT OFFICIAL ORDERS IN SO HE CAN BE DIALYZED TODAY.
--- NOTE | 2018-04-18 14:37 | NUR ---
PATIENT RESTING IN BED. WAKES EASILY. VERIFIED PEDAL PULSE TO RIGHT FOOT WITH DOPPLER.
--- NOTE | 2018-04-18 16:00 | NUR ---
CHANGED DRESSING TO LEFT GROIN FROM ARTERIOGRAM AND RIGHT LEG STENT. APPLIED NEW GUAZE AND TEGADERM TO SITE.
--- NOTE | 2018-04-18 17:28 | NUR ---
SERVED DINNER TRAY. CLEANED OFF OLD NITRO OINTMENT FROM RIGHT TOES AND REAPPLIED. NO COMPLAINTS OF PAIN. TOES STILL PRESENT DARK DISCOLORIZATION.
[2018-04-19] VITALS (24 sets, daily range): BP systolic 120–171; BP diastolic 66–90
[2018-04-19 03:22] LABS: BASOPHILS 0.4 % (0-2); EOSINOPHILS 3.3 % (0-7); HEMATOCRIT 31.9 % (42.0-54.0); HEMOGLOBIN 10.5 g/dL (13.5-17.5); IMMATURE GRANULOCYTES 0.1 % (0-5); LYMPHOCYTES 24.4 % (15-50); MCH 31.3 pg (26.0-34.0); MCHC 32.9 g/dL (31.0-37.0); MCV 95.2 fL (80.0-100.0); MEAN PLATELET VOLUME 10.6 fL (7.4-10.4); MONOCYTES 12.3 % (2-11); NEUTROPHILS 59.5 % (40-80); PLATELET COUNT 186 10x3/uL (130-400); RBC 3.35 10x6/uL (4.20-6.10); RDW 14.2 % (11.5-14.5); WBC 6.7 10x3/uL (4.8-10.8)
[2018-04-19 03:36] LABS: ANION GAP 18.5 mmol/L (8-16); CALCIUM 8.3 mg/dL (8.5-10.1); CARBON DIOXIDE 24.9 mmol/L (21.0-32.0); CREATININE - SERUM 7.4 mg/dL (0.6-1.3); PHOSPHOROUS 8.5 mg/dL (2.5-4.9); POTASSIUM - SERUM 4.4 mmol/L (3.5-5.1)
--- NOTE | 2018-04-19 07:00 | NUR ---
PATIENT RESTING IN BED C CALL TUBBS IN REACH. NO COMPLAINTS. RIGHT DORSALIS PEDIS PULSE LOCATED WITH DOPPLER. RIGHT TIBIAL ALSO LOCATED WITH DOPPLER. ABLE TO FEEL AND WIGGLE TOES, STILL PURPLE THOUGH. VSS. WILL CONTINUE TO MONITOR
--- NOTE | 2018-04-19 08:47 | NUR ---
CALLED PHARMACY TO BRING UP GARRETT
--- NOTE | 2018-04-19 11:00 | NUR ---
PATIENT RESTING IN BED C CALL TUBBS IN REACH. VSS. NO COMPLAINTS. PEDAL PULSE STILL PRESENT PER DOPPLER. FOOT LATHERED WITH NITRO OINTMENT
--- NOTE | 2018-04-19 11:51 | NUR ---
PATIENT COMPLAINS EMITREX IS NOT WORKING. WILL SPEAK TO DR. CARRILLO ABOUT ALTERNATIVES WHEN HE MAKES ROUNDS. DR. PALM IN ROOM TALKING TO PATIENT.
--- NOTE | 2018-04-19 13:00 | NUR ---
PATIENT RESTING IN BED. NO COMPLAINTS OF PAIN. VSS.
--- NOTE | 2018-04-19 15:00 | NUR ---
NO COMPLAINTS OF PAIN. VSS. ASSISTED REPOSITIONING IN BED FOR COMFORT. DORSALIS AND TIBIAL PEDAL PULSES OBTAINED VIA DOPPLER.
--- NOTE | 2018-04-19 17:14 | NUR ---
GAVE DINNER TRAY TO PATIENT WITH MITRA. FAMILY IN ROOM VISITING WITH FRANCINE.
[2018-04-19 18:10] LABS: HEPATITIS C ANTIBODY >11.0 S/CO RAT (0.0-0.9)
--- NOTE | 2018-04-19 19:22 | MORECARE ---
CASE MANAGEMENT DISCHARGE SUMMARY PATIENT: NADIA WHITT UNIT: [id number] ADM DATE: 04/17/18 AGE: 52 : 69 SEX: M ROOM/BED: D.2314 AUTHOR: BRIAN ELLSWORTH PHYSICIAN: REFERRING PHYSICIAN: TREASURE RIVERO MD DATE OF SERVICE: 04/19/18 Discharge Plan Patient Name: NADIA WHITT [facility] [facility] 1965 Planned Disposition: Home Anticipated Discharge Date: Discharge Date: Expected LOS: Initial Reviewer: [email or web address] Initial Review Date: 04/19/2018 Generated: 04/19/18 8:22 pm DCP- Discharge Planning Updated by [email or web address]: Dianna Bustos on 04/17/18 4:[address] CM will do intake discharge planning assessment at later time. Patient is currently drowsy from procedure. CM will continue to follow and assist as needed with discharge planning / needs Last DP export: 04/17/18 5:04 pm Patient Name: NADIA WHITT Page [phone] at 1922 All edits/amendments must be made on the electronic document DICTATION DATE: 04/19/181920 SOILS TECHNICIAN: ANJU 04/19/181920 RPT#: [id number] DC DATE: STATUS: ADM IN [facility] [address] [place] [address] END OF REPORT
--- NOTE | 2018-04-19 19:29 | MORECARE ---
CASE MANAGEMENT DISCHARGE SUMMARY PATIENT: NADIA WHITT UNIT: [id number] ADM DATE: 04/17/18 AGE: 52 : 69 SEX: M ROOM/BED: D.2314 AUTHOR: BRIAN ELLSWORTH PHYSICIAN: REFERRING PHYSICIAN: TREASURE RIVERO MD DATE OF SERVICE: 04/19/18 Discharge Plan Patient Name: NADIA WHITT [facility]: [facility]:[place] : 1965 Planned Disposition: Home Anticipated Discharge Date: Discharge Date: Expected LOS: Initial Reviewer: [email or web address] Initial Review Date: 04/19/2018 Generated: 04/19/18 8:28 pm DCP- Discharge Planning Updated by VALERIA Bustos on 04/17/18 4:[address] CM will do intake discharge planning assessment at later time. Patient is currently drowsy from procedure. CM will continue to follow and assist as needed with discharge planning / needs DCPIA - Discharge Planning Initial Assessment Updated by OMID: Dianna Bustos on 04/19/18 7:24 pm * Is the patient Alert and Oriented? Yes * How many steps to enter\exit or inside your home? 18 * PCP Rachid * [facility] * Preadmission Environment Home Alone * ADLs Independent * Equipment None * List name and contact numbers for known caregivers / representatives who currently or will assist patient after discharge: Shola Whitt - father- [phone] * Verbal permission to speak to the caregivers and representatives has been obtained from the patient. N/A * Community resources currently utilized None * Please name any agencies selected above. [facility] - hemodialysis - MWF - 10-2:30 * Additional services required to return to the preadmission environment? No * Can the patient safely return to the preadmission environment? Yes * Has this patient been hospitalized within the prior 30 days at any hospital? No Last DP export: 04/19/18 6:22 pm Patient Name: NADIA WHTIT Page [phone] at 4604 All edits/amendments must be made on the electronic document DICTATION DATE: 04/19/181927 BIN CLEANER: DM 04/19/181927 RPT#: [id number] DC DATE: STATUS: ADM IN [facility] [address] [place] [address] END OF REPORT
--- NOTE | 2018-04-19 19:30 | NUR ---
SHIFT ASSESSMENT COMPLETE PER NURSING FLOWSHEET, PATIENT INDEPENDENTLY REPOSITIONS SELF, WATCHING T.V., C/L IN REACH
--- NOTE | 2018-04-19 21:00 | NUR ---
PATIENT CONTINUES WATCHING T.V, NO OTHER NEEDS VOICED OR NOTED AT THIS TIME
--- NOTE | 2018-04-19 23:00 | NUR ---
RE-ASSESSMENT COMPLETE, PER NURSING FLOWSHEET. PATIENT'S IV TO RIGHT HAND INFILTRATED, 22G IV REMOVED, CATH TIP INTACT, 20G 1" PLACED TO RIGHT A/C X1 ATTEMPT. S/L
[2018-04-20] VITALS (20 sets, daily range): BP systolic 146–194; BP diastolic 75–93
--- NOTE | 2018-04-20 01:00 | NUR ---
PATIENT SLEEPING, IN NO APPARENT DISTRESS, VSS, C/L IN REACH
[2018-04-20 02:45] LABS: BASOPHILS 0.4 % (0-2); HEMATOCRIT 32.6 % (42.0-54.0); HEMOGLOBIN 10.6 g/dL (13.5-17.5); IMMATURE GRANULOCYTES 0.4 % (0-5); LYMPHOCYTES 22.8 % (15-50); MCH 31.1 pg (26.0-34.0); MCHC 32.5 g/dL (31.0-37.0); MCV 95.6 fL (80.0-100.0); MEAN PLATELET VOLUME 10.5 fL (7.4-10.4); MONOCYTES 12.2 % (2-11); NEUTROPHILS 61.2 % (40-80); PLATELET COUNT 183 10x3/uL (130-400); RBC 3.41 10x6/uL (4.20-6.10); WBC 7.2 10x3/uL (4.8-10.8)
--- NOTE | 2018-04-20 03:00 | NUR ---
RE-ASSESSMENT COMPLETE, PER NURSINGN FLOWSHEET. PATIENT WAKES EAISLY, FOLLOWS COMMANDS AND EASILY BACK TO SLEEP, CONTINUE POC
[2018-04-20 03:10] LABS: ANION GAP 20.9 mmol/L (8-16); CALCIUM 8.2 mg/dL (8.5-10.1); CARBON DIOXIDE 23.4 mmol/L (21.0-32.0); CREATININE - SERUM 8.7 mg/dL (0.6-1.3); VANCOMYCIN - RANDOM 0.1 ug/mL (10.0-20.0)
[2018-04-20 03:14] LABS: PHOSPHOROUS 10.6 mg/dL (2.5-4.9); POTASSIUM - SERUM 5.3 mmol/L (3.5-5.1)
--- NOTE | 2018-04-20 05:00 | NUR ---
PATIENT SLEEPING, NO APPARENT DISTRESS, VSS, REPOSITIONS SELF, C/L IN REACH
--- NOTE | 2018-04-20 07:00 | NUR ---
RECEIVED BEDSIDE REPORT ON PATIENT, AND ASSUMED CARE OF PATIENT. PATIENT RESTIGN QUIETLY, VSS. EASILY AROUSED BY VOICE. PT AND DP PUSLES OBTAINED TO RIGHT FOOT VIA DOPPLER. HEAD TO TOE ASSESSMENT COMPELTED. PARTIAL BATH PER PATIENT AND LINENS, GOWN CHANGED. IV 20 GA TO RIGHT AC, PATENT, EASILY FLUSHED AND POSITIVE BLOOD RETURN. DRESSING CLEAN, DRY AND INTACT.
[2018-04-20 07:26] LABS: HEPATITIS BE ANTIGEN Negative (Negative)
--- NOTE | 2018-04-20 08:05 | NUR ---
PATIENT C/O PAIN TO RIGHT FOOT RATES 7/10, STATES BURNING SENSATION. GIVEN 1 MG MORPHINE IV PUSH WITH NS FLUSH. IV ANTIBIOTICS GIVEN PER ORDER, SEE MAR. PATIENT ALERT AND ORIENTED X 4, SITTING UP EATING BREAKFAST. VSS. WILL CONTINUE TO MONITOR.
--- NOTE | 2018-04-20 08:49 | NUR ---
PATIENT ATE 100% OF BREAKFAST, RESTING QUIELTY, WATCHING TV. VSS. RATES PAIN CURRENTLY 5/10 AFTER IV MORPHINE. GIVEN MEDS PER MAY.
--- NOTE | 2018-04-20 09:00 | NUR ---
DOPPLER RIGHT FOOT DP AND PT PUSLSES PRESENT VIA DOPPLER. VSS.
--- NOTE | 2018-04-20 10:00 | NUR ---
PATIENT RESTING QUIETLY WITH EYES CLOSED. VSS.
--- NOTE | 2018-04-20 11:00 | NUR ---
REASSESSMENT COMPLETED. VSS. PATIENT RESTING QUIETLY. DOPPLER PUSLES TO RIGHT DP AND PT PRESENT. WILL CONTINUE TO MONITOR. PATIENT TURNED SELF AND REPOSITIONED IN BED.
--- NOTE | 2018-04-20 13:08 | NUR ---
PATIENT RESTING QUIETLY WITH EYES CLOSED. VSS. ATE APPROXIMATELY 10% OF LUNCH, STATES NO APPETITE. WILL CONTINUE TO MONITOR.
--- NOTE | 2018-04-20 14:36 | NUR ---
PATIENT C/O PAIN 8/10 TO RIGHT FOOT, BURNING SENSATION. POSITVE DOPPLER SIGNALS TO DP AND PT ON RIGHT FOOT. GIVEN MORPHINE 1 MG IVP WITH NS FLUSH PER ORDER FOR PAIN. VSS. DIALYSIS AT ROOM TO BEGIN DIALYSIS.
--- NOTE | 2018-04-20 15:00 | NUR ---
REASSESSMENT COMPLETED. RIGHT FOOT WARM TO TOUCH, TOES REMAIN PURPLE MOSTLY AT THE TIPS, REST OF TOES TO MID FOOT RED IN COLOR. STATES BURNING SENSATION CONTINUES BUT BETTER WITH MORPHINE. DOPPLER PULSES TO RIGHT DP AND PT NOTED. REPOSITIONED IN BED. VSS. DIALYSIS ONGOING AND TOLERATING WELL.
--- NOTE | 2018-04-20 15:57 | NUR ---
CALLED REPORT TO [id number] LEYLA BARRAGAN LPN TO TRANSFER PATIENT WHEN DIALYSIS IS COMPLETE TO ROOM 2135.
--- NOTE | 2018-04-20 17:18 | NUR ---
PATIENT TOLERATING DIALYSIS, 2.5 LITERS REMOVED. VSS. MEDS GIVEN PER MAR. OFF DIALYSIS AT 1718.
--- NOTE | 2018-04-20 17:31 | NUR ---
PATIENT GIVEN DINNER TRAY.
--- NOTE | 2018-04-20 18:02 | NUR ---
PATIENT ATE 100% OF DINNER, VSS, TRANSFERED TO FLOOR, ROOM NUMBER 2135 VIA BED.
--- NOTE | 2018-04-20 18:24 | NUR ---
PT ARRIVED TO UNIT VIA WC. PT TRANSFERED WITH ASSIST INTO BED. PT IS ALERT AND ORIENTED AND ON ROOM AIR. WEAK PULSES IN RIGHT FOOT BUT CHIQUITA FLORES STATES YOU CAN HEAR GOOD PULSES WITH DOPPLER. PT BELONGINGS UNPACKED PT WANTED HIS GLASSES, CELLPHONE AND CELLPHONE SEAMING INSPECTOR. PT'S CLOTHES PLACED IN CLOSET EXCEPT FOR HIS PANTS AND WALLET THAT WAS PLACED IN BEDSIDE BOTTOM DRAWER BY PT'S BED CLOSEST TO BATHROOM. PT STATES HE WANTS THE PANTS WITH HIS WALLET KEPT THERE BECAUSE HE HAS MONEY IN HIS WALLET. PT GIVEN URINAL AND CUP OF ICE PER HIS REQUEST. PT HAS NO FURTHER NEEDS AT THIS TIME. BED LOW. CL IN REACH. CHIQUITA FLORES ALSO STATES DIALYSIS REMOVED 2.5L.
--- NOTE | 2018-04-20 18:44 | NUR ---
LEFT ARM RESERVE SIGNS PLACED ON WALL BEHIND PT'S BED AND ON DOOR OF ROOM.
--- NOTE | 2018-04-20 20:00 | NUR ---
INITIAL ROUNDS AND ASSESSMENT COMPLETED. PT RESTING IN BED WITH RIGHT FOOT LAYING ON TOP OF HIS COVERS. DOPPLER PULSE TO RIGHT FOOT. EDEMA AND DISCOLORATION TO TOES. PT ALERT/ORIENTED. LEFT ARM WITH AVF. PIV TO RFA. MONITOR AND CPOC.
--- NOTE | 2018-04-20 23:00 | NUR ---
BEDTIME MEDS GIVEN. PT REQUESTED AND RECIEVED IV MORPHINE FOR PAIN TO RIGHT FOOT. FSBS 172. PT DECLINED SLIDING SCALE INSULIN, FOR FEAR IT MAY BOTTOM HIM OUT BY MORNING. MONITOR AND CPOC.
[2018-04-21] VITALS: BP 150/91
--- NOTE | 2018-04-21 02:14 | NUR ---
PT RESTING IN BED WITH NO DISTRESS. RESPS EVEN/NONLABORED. MONITOR AND CPOC.
[2018-04-21 04:00] VITALS: BP 143/74
--- NOTE | 2018-04-21 04:45 | NUR ---
PT RESTING WITH NO DISTRESS. WAREHOUSE SPECIALIST AT BEDSIDE. MONITOR AND CPOC.
--- NOTE | 2018-04-21 07:16 | NUR ---
RECIEVED BEDSIDE REPORT. AM ROUNDS COMPLETED. VSS, AAOX3, LEFT AV FISTULA TO LEFT ARM, PIV ON RIGHT HAND. PURPLE DISCOLORATION TO RIGHT TOES AND EDEMATOUS. PT REFUSED INSULIN AND FINGER STICK. STATES HIS BLOOD SUGAR IS FINE AND IT USUALLY RUN ABOUT 150-170 @HOME. RR UNLABORED, NO S/S OF DISTRESS. PT DENIES ANY FURTHER NEEDS AT THIS TIME. WILL CPOC. CL IN REACH, BED IN LOW.
[2018-04-21 08:22] LABS: BASOPHILS 0.4 % (0-2); EOSINOPHILS 2.6 % (0-7); HEMATOCRIT 33.1 % (42.0-54.0); HEMOGLOBIN 10.7 g/dL (13.5-17.5); IMMATURE GRANULOCYTES 0.4 % (0-5); LYMPHOCYTES 23.1 % (15-50); MCH 31.2 pg (26.0-34.0); MCHC 32.3 g/dL (31.0-37.0); MCV 96.5 fL (80.0-100.0); MONOCYTES 10.5 % (2-11); PLATELET COUNT 188 10x3/uL (130-400); RBC 3.43 10x6/uL (4.20-6.10); RDW 13.8 % (11.5-14.5); WBC 6.9 10x3/uL (4.8-10.8)
[2018-04-21 08:43] LABS: ANION GAP 19.9 mmol/L (8-16); CALCIUM 9.1 mg/dL (8.5-10.1); CARBON DIOXIDE 24.6 mmol/L (21.0-32.0); CREATININE - SERUM 7.5 mg/dL (0.6-1.3); POTASSIUM - SERUM 5.5 mmol/L (3.5-5.1)
[2018-04-21 08:47] LABS: PHOSPHOROUS 9.3 mg/dL (2.5-4.9)
--- NOTE | 2018-04-21 11:45 | NUR ---
PT C/O RIGHT TOES PAIN. NOTIFIED HERNANDEZ MEDRANO. PT MORPHINE INCREASED TO 2MG Q6HRS PRN. PT RECIEVED FIRST DOSE STAT. WILL CTM. CL IN REACH, BED IN LOW, SR UP X2.
[2018-04-21 17:41] VITALS: BP 145/88
--- NOTE | 2018-04-21 19:15 | NUR ---
RECEIVED REPORT, ASSUMED CARE OF PATIENT. ALERT/AWAKE ORIENTED X4. RATES PAIN LEVEL AT 4 ON NUMBER SCALE OF RT FOOT. DENIES ANY NEEDS. HAS CL IN REACH.
--- NOTE | 2018-04-21 20:35 | NUR ---
ALERT/AWAKE WATCHING TV. RATES PAIN LEVEL OF RT FOOT AT 7 ON NUMBER SCALE, DESCRIBED A BURNING SENSATION. ADMIN SCHED PO MEDS WITH SIPS OF WATER. CHECKED BS AT 213. REFUSED INSULIN, STATING "I HAVE NEVER TAKEN INSULIN IN MY LIFE", EXPLAINED TO HIM HE IS POSSIBLE NOW A DIABETIC, BUT STATED "NO, MAYBE IF IT GET'S UP TO 250". REQUESTED PAIN MEDICATION, BUT INFORMED IT IS TO SOON AFTER LAST DOSE. NO OTHER NEEDS VOICED.
[2018-04-21 20:38] VITALS: BP 150/76
[2018-04-22] VITALS: BP 138/62
--- NOTE | 2018-04-22 00:30 | NUR ---
REMOTE BROADCAST TECHNICIAN PRESENT IN ROOM TAKING VS. DENIES ANY NEEDS.
[2018-04-22 04:00] VITALS: BP 140/65
--- NOTE | 2018-04-22 05:00 | NUR ---
TOOK SHOWER WITH HIBICLENS SOAP. WHITE SHOE RAGGER CHANGED BEDDING. GOT HIM A FAN FOR C/O "BEING HOT".
[2018-04-22 05:20] LABS: BASOPHILS 0.4 % (0-2); EOSINOPHILS 2.3 % (0-7); HEMOGLOBIN 9.8 g/dL (13.5-17.5); IMMATURE GRANULOCYTES 0.4 % (0-5); LYMPHOCYTES 23.4 % (15-50); MCH 30.9 pg (26.0-34.0); MCHC 32.7 g/dL (31.0-37.0); MCV 94.6 fL (80.0-100.0); MEAN PLATELET VOLUME 10.1 fL (7.4-10.4); MONOCYTES 10.6 % (2-11); NEUTROPHILS 62.9 % (40-80); PLATELET COUNT 187 10x3/uL (130-400); RBC 3.17 10x6/uL (4.20-6.10); RDW 13.6 % (11.5-14.5)
[2018-04-22 05:53] LABS: ANION GAP 19.9 mmol/L (8-16); CALCIUM 8.7 mg/dL (8.5-10.1); CARBON DIOXIDE 24.6 mmol/L (21.0-32.0); CREATININE - SERUM 8.6 mg/dL (0.6-1.3); POTASSIUM - SERUM 5.5 mmol/L (3.5-5.1)
--- NOTE | 2018-04-22 06:49 | NUR ---
LEFT FA IV INFILTRATED. REMOVED AND RESITED IN RIGHT LOWER FA WITH 20G.
--- NOTE | 2018-04-22 06:53 | NUR ---
RESTING ON LEFT SIDE WITH EYES CLOSED. NO S/S OF DISCOMFORT. ADMIN IV ABX ORDERED.
--- NOTE | 2018-04-22 07:20 | NUR ---
PT IN BED. WATCHING TV. PT HAS NO FURTHER NEEDS AT THIS TIME. RIGHT TOES PURPLE AND THEN TURNS RED. URINAL EMPTIED. PT HAS NO FURTHER NEEDS AT THIS TIME.
[2018-04-22 07:42] VITALS: BP 136/48
--- NOTE | 2018-04-22 09:54 | NUR ---
RESTS IN BED WITH EYES CLOSED. CALL LIGHT IN REACH. WILL MONITOR NEEDS.
[2018-04-22 11:18] VITALS: BP 123/51
[2018-04-22 15:36] VITALS: BP 122/65
--- NOTE | 2018-04-22 16:26 | NUR ---
PT IV WRAPPED AND PT TAKING SHOWER.
--- NOTE | 2018-04-22 16:39 | NUR ---
PT MISSED 0623 DOSE OF MERREM. DOSE ADDED FOR 1730 TODAY.
--- NOTE | 2018-04-22 20:24 | NUR ---
HS MEDS GIVEN WITH FRESH ICE WATER. BS 133, NO COVERAGE PER S/S. NORCO 1 TAB GIVEN FOR C/O PAIN TO BILATERAL FEET. RATES PAIN AT AN 8 ON PAIN SCALE.
[2018-04-22 21:11] VITALS: BP 145/67
[2018-04-23 02:25] VITALS: BP 139/79
[2018-04-23 05:14] LABS: HEPATITIS BE ANTIBODY Negative (Negative)
--- NOTE | 2018-04-23 06:11 | NUR ---
SPOKE WITH KERRI VALENTINE APN, INFORMED HER OF CRITICAL PHOS. OF 12. 3. NO NEW ORDERS GIVEN AT THIS TIME.
[2018-04-23 06:24] VITALS: BP 136/50
[2018-04-23 08:14] VITALS: BP 132/74
--- NOTE | 2018-04-23 09:11 | NUR ---
RESTS IN BED WITH CALL LIGHT IN REACH. NO NEEDS VOICED AT THSI TIME. WILL MONITOR.
--- NOTE | 2018-04-23 10:09 | NUR ---
PT TAKEN DOWN TO DIALYSIS VIA WC.
--- NOTE | 2018-04-23 12:49 | NUR ---
JULIET IN DIALYSIS THEY GOT OFF 1L.
--- NOTE | 2018-04-23 13:10 | NUR ---
PT RETURNED FROM DIALYSIS VIA WC. C/O PAIN OF 6/10 IN RIGHT FOOT.
--- NOTE | 2018-04-23 13:57 | NUR ---
PT REFUSING TO KEEP ON TELEMETRY AND STATES HE DOES NOT WANT TO WEAR IT ANYMORE. TELEMETRY DC'D.
--- NOTE | 2018-04-23 13:59 | NUR ---
SPOKE WITH YASMEEN BELL ABOUT PT NOT WANTING TO WEAR TELEMETRY. SHE STATES TO "JUST DC IT."
--- NOTE | 2018-04-23 14:38 | NUR ---
Nutrition follow-up: Diet: Renal ADA PO intake 75-100% of most meals Labs reviewed; PO4 12.2 Wt: 257# Pt scheduled for surgery 04/25/18 PO intake good at this time. RDN following.
[2018-04-23 15:52] VITALS: BP 128/68
[2018-04-23 20:00] VITALS: BP 133/72
--- NOTE | 2018-04-24 02:25 | NUR ---
RESTING WITH EYES CLOSED, RESPERATIONS EVEN, NO S/S DISTRESS NOTED.
[2018-04-24 04:00] VITALS: BP 104/64
[2018-04-24 06:58] LABS: BASOPHILS 0.5 % (0-2); EOSINOPHILS 2.4 % (0-7); HEMOGLOBIN 9.1 g/dL (13.5-17.5); IMMATURE GRANULOCYTES 0.5 % (0-5); LYMPHOCYTES 29.5 % (15-50); MCH 30.7 pg (26.0-34.0); MCHC 32.5 g/dL (31.0-37.0); MCV 94.6 fL (80.0-100.0); MEAN PLATELET VOLUME 10.1 fL (7.4-10.4); MONOCYTES 17.8 % (2-11); NEUTROPHILS 49.3 % (40-80); PLATELET COUNT 180 10x3/uL (130-400); RBC 2.96 10x6/uL (4.20-6.10); RDW 13.7 % (11.5-14.5); WBC 6.2 10x3/uL (4.8-10.8)
[2018-04-24 07:30] LABS: ANION GAP 24.2 mmol/L (8-16); CALCIUM 8.3 mg/dL (8.5-10.1); CARBON DIOXIDE 21.2 mmol/L (21.0-32.0); CREATININE - SERUM 9.7 mg/dL (0.6-1.3); POTASSIUM - SERUM 5.4 mmol/L (3.5-5.1)
[2018-04-24 08:15] VITALS: BP 131/79
--- NOTE | 2018-04-24 09:32 | NUR ---
RESTS IN BED WITH CALL LIGHT IN REACH. STUDENT AT BS ASSISITNG WITH NEEDS. WILL CONT. PLAN OF CARE.
[2018-04-24 11:52] VITALS: BP 128/74
--- NOTE | 2018-04-24 14:10 | NUR ---
CONSENTS SIGNED FOR PT'S TRANSMETATARSAL AMPUTATION SURGERY TOMORROW.
[2018-04-24 15:26] VITALS: BP 133/81
[2018-04-24 20:00] VITALS: BP 140/66
--- NOTE | 2018-04-24 20:00 | NUR ---
INITIAL ASSESSMENT COMPLETED - PT RESTING IN BED WITH EYES CLOSED. AROUSES TO LOUD STIMULI. NO NEEDS NOTED AT THIS TIME. RR EVEN AND UL, NO S/S OF DISTRESS. CL IN REACH, SR UP X2, BED IN LOWEST POSITION. WCTM AND FOLLOW POC. VSS.
[2018-04-25] VITALS: BP 130/66
--- NOTE | 2018-04-25 03:00 | NUR ---
PT RECIEVED HIBICLENS BATH BY JO RENTERIA. TOLERATED WELL, WAS NOT ABLE TO GET UP OUT OF BED, SO PERFORMED BED BATH PER JO RENTERIA. NO FURTHER NEEDS NOTED AT THIS TIME. RR EVEN AND UL, NO S/S OF DISTRESS. VSS. CL IN REACH, SR UP X2, BED IN LOWEST POSITION, NPO STATUS MAINTAINED.
[2018-04-25 04:32] VITALS: BP 125/63
[2018-04-25 06:00] LABS: BASOPHILS 0.3 % (0-2); EOSINOPHILS 3.3 % (0-7); HEMATOCRIT 27.2 % (42.0-54.0); HEMOGLOBIN 9.1 g/dL (13.5-17.5); IMMATURE GRANULOCYTES 0.3 % (0-5); LYMPHOCYTES 24.4 % (15-50); MCH 31.3 pg (26.0-34.0); MCHC 33.5 g/dL (31.0-37.0); MCV 93.5 fL (80.0-100.0); MEAN PLATELET VOLUME 10.4 fL (7.4-10.4); MONOCYTES 13.5 % (2-11); NEUTROPHILS 58.2 % (40-80); PLATELET COUNT 191 10x3/uL (130-400); RBC 2.91 10x6/uL (4.20-6.10); RDW 13.4 % (11.5-14.5); WBC 6.8 10x3/uL (4.8-10.8)
[2018-04-25 06:18] LABS: APTT 39.3 SECONDS (22.8-39.4)
[2018-04-25 06:31] LABS: ANION GAP 26.7 mmol/L (8-16); CALCIUM 8.4 mg/dL (8.5-10.1); CARBON DIOXIDE 20.1 mmol/L (21.0-32.0); CREATININE - SERUM 10.5 mg/dL (0.6-1.3); POTASSIUM - SERUM 5.8 mmol/L (3.5-5.1)
[2018-04-25 06:38] LABS: PHOSPHOROUS 12.5 mg/dL (2.5-4.9)
[2018-04-25 06:49] LABS: INR 1.15 (0.85-1.17); PROTIME 14.2 SECONDS (11.6-15.0)
--- NOTE | 2018-04-25 06:53 | NUR ---
CRITICAL PHOSPHOROUS RECIEVED. [facility] IS AWARE OF THIS AND HAVE NO ORERED ANYTHING FOR IT. WILL PASS ON TO DAY NURSE.
--- NOTE | 2018-04-25 08:36 | NUR ---
RESUMING PT CARE, PT IS LAYING IN BED ALERT AND ORIENTED X3, CALL LIGHT IN REACH, WILL CONTINUE TO MONITOR AND FOLLOW PLAN OF CARE. DIALYSIS CALLED FOR PT, PT STATES HE IS HAVING SURGERY THIS AFTERNOON AND DOES NOT WANT TO GO TO DIALYSIS DUE TO BEING N[place]. I CALLED SURGERY AND TALKED WITH TASHIA TO SEE WHAT TIME SURGERY IS SCHEDULED, TASHIA WILL CALL ME BACK AFTER TALKING WITH DR VELASQUEZ TO CLARIFY IS PT IS TO DO DIALYSIS FIRST. WILL HOLD DIALYSIS UNTIL FURTHER INSTRUCTION FROM RON.
[2018-04-25 09:00] VITALS: BP 126/61
--- NOTE | 2018-04-25 09:51 | NUR ---
RESTS IN BED WITH EYES CLOSED. CALL LIGHT IN REACH. WILL CONT. PLAN OF CARE.
--- NOTE | 2018-04-25 10:43 | NUR ---
PT REFUSES DIALYSIS TODAY, HE SAID THAT SALEEM FROM [facility] SAID HE WILL GO SUNDAY FOR DIALYSIS SINCE HE IS HAVING SURGERY TODAY.
[2018-04-25 12:43] VITALS: BP 124/55
--- NOTE | 2018-04-25 15:20 | NUR ---
PT IS LAYING IN BED ALERT AND ORIENTED, C/O PAIN IN RIGHT FOOT. PAIN MED GIVEN ORDERED, CALL LIGHT IN REACH, WILL CONTINUE TO MONITOR AND FOLLOW PLAN OF CARE.
[2018-04-25 16:05] VITALS: BP 122/63
[2018-04-25 20:00] VITALS: BP 125/55
[2018-04-26] VITALS: BP 119/42
[2018-04-26 04:00] VITALS: BP 119/59
--- NOTE | 2018-04-26 07:51 | NUR ---
DR. WEBB HERE AND WANTS DIALYSIS DONE BEFORE OR. OR NOTIFIED WHO IN TURN NOTIFIED DR. VELASQUEZ. OR TO BE POSTPONED UNTIL THIS AFTERNOON. DIALYSIS( T[facility] LAWRENCE) ALSO NOTIFIED.
[2018-04-26 07:59] LABS: BASOPHILS 0.2 % (0-2); EOSINOPHILS 2.6 % (0-7); HEMATOCRIT 27.1 % (42.0-54.0); IMMATURE GRANULOCYTES 0.5 % (0-5); LYMPHOCYTES 20.8 % (15-50); MCH 30.9 pg (26.0-34.0); MCHC 33.2 g/dL (31.0-37.0); MCV 93.1 fL (80.0-100.0); MEAN PLATELET VOLUME 10.5 fL (7.4-10.4); MONOCYTES 12.8 % (2-11); NEUTROPHILS 63.1 % (40-80); PLATELET COUNT 189 10x3/uL (130-400); RBC 2.91 10x6/uL (4.20-6.10); RDW 13.5 % (11.5-14.5)
[2018-04-26 08:13] LABS: ANION GAP 27.7 mmol/L (8-16); CALCIUM 7.9 mg/dL (8.5-10.1); CARBON DIOXIDE 17.8 mmol/L (21.0-32.0); CREATININE - SERUM 11.6 mg/dL (0.6-1.3)
[2018-04-26 08:16] LABS: POTASSIUM - SERUM 6.5 mmol/L (3.5-5.1)
--- NOTE | 2018-04-26 08:18 | NUR ---
CRITICAL LAB CALLED . K IS 6.5+. DR WEBB KNOWS AND DIAYLSIS WILL BE DONE FIRST.
[2018-04-26 09:13] VITALS: BP 130/61
--- NOTE | 2018-04-26 10:37 | NUR ---
PT IS IN DIALYSIS AT PRESENT
--- NOTE | 2018-04-26 13:21 | NUR ---
IS NOT ABLE TO DO SURGERY SO I GOT CONSENT FORM FIXED FOR EXPLAINED TO PT HE AGREED AND SIGNED AND VERBALIZED UNDERSTANDING. PICKED PT UP FROM DIALYSIS AND TRANSFERRED TO SX AT THIS TIME. NO CURRENT NEEDS, DISCUSSED WITH PTS NURSE TIKA HAIR. NO CURRENT NEEDS.
--- NOTE | 2018-04-26 19:00 | NUR ---
RECIEVED REPORT. ROUNDS COMPLETED. VSS, AAOX2. BUT CONFUSED AND ANXIOUS. ON ASSESMENT, PT HAD SURGERY DONE TODAY. RIGHT TOES WAS AMPUTATED. PT HAVE A BANDAGE WRAPPED AROUND THE TOES AND A SMALL HEMOVAC DRAIN. PT LEG IS ELEVATED TO HEART LEVEL. PT KEEP C/O PAIN. IV BUPRENORPHINE WAS GIVEN PRIOR. PO NORCO GIVEN AT THIS TIME. WILL REASSES IN 1HR. WILL CPOC. CL IN REACH, BED IN LOW, SR UP X2. WILL CTM.
[2018-04-26 20:00] VITALS: BP 130/50
--- NOTE | 2018-04-26 22:30 | NUR ---
PT STATES PAIN IN HIS AMPUTATED TOES IS GETTING WORSE. PT VSS. MEDS GIVEN. ALSO GAVE PT IV PRN BUPRENORPHINE. WILL CTM.
[2018-04-27 00:30] VITALS: BP 141/66
[2018-04-27 04:00] VITALS: BP 136/43
[2018-04-27 07:49] VITALS: BP 149/49
--- NOTE | 2018-04-27 07:57 | NUR ---
PATIENT IS ALERT AND AWAKE. HIS RIGHT FOOT IS DRESSED AND HAS A HEMOVAC IN PLACE. HE REPORTS PAIN IN THE FOOT. VERY LITTLE HAS COME OUT OF THE WOUND. IV ANTIBIOTICS COMPLETE AT THIS TIME.
--- NOTE | 2018-04-27 08:15 | NUR ---
REMOVED IV FROM RIGHT FOREARM, IT HAD BECOME DISLODGED. PATIENT IS GOING TO DIALYSIS AT THIS TIME.
--- NOTE | 2018-04-27 08:16 | NUR ---
WHEN I REMOVED THE IV, THE CATHETER WAS INTACT AND PATIENT TOLERATED. HE IS A LEFT ARM RESERVE, SO WE WILL HAVE TO SEE WHAT IS AVAIALABLE TO GET ANOTHER IV UPON HIS RETURN.
[2018-04-27 10:29] LABS: BASOPHILS 0.1 % (0-2); EOSINOPHILS 1.1 % (0-7); HEMATOCRIT 29.4 % (42.0-54.0); HEMOGLOBIN 10.1 g/dL (13.5-17.5); IMMATURE GRANULOCYTES 0.5 % (0-5); LYMPHOCYTES 13.4 % (15-50); MCH 31.3 pg (26.0-34.0); MCHC 34.4 g/dL (31.0-37.0); MEAN PLATELET VOLUME 10.1 fL (7.4-10.4); MONOCYTES 9.5 % (2-11); NEUTROPHILS 75.4 % (40-80); PLATELET COUNT 221 10x3/uL (130-400); RBC 3.23 10x6/uL (4.20-6.10); RDW 13.1 % (11.5-14.5); WBC 7.3 10x3/uL (4.8-10.8)
[2018-04-27 10:40] LABS: CALCIUM 8.3 mg/dL (8.5-10.1); PHOSPHOROUS 6.3 mg/dL (2.5-4.9)
[2018-04-27 10:41] LABS: ANION GAP 19.1 mmol/L (8-16); CARBON DIOXIDE 25.6 mmol/L (21.0-32.0); CREATININE - SERUM 5.1 mg/dL (0.6-1.3); POTASSIUM - SERUM 3.7 mmol/L (3.5-5.1)
--- NOTE | 2018-04-27 13:45 | NUR ---
NEW IV START IN RIGHT FOREARM BY CALCINER OPERATOR HELPER. GIVING PAIN MEDICATION NOW.
--- NOTE | 2018-04-27 13:47 | NUR ---
WHEN DR HALL WAS ROUNDING ON PATIENT , PATIENT REPORTS THAT EARLY THIS MORNING HE FELL IN THE BATHROOM . I WAS NOT AWARE OF THIS AND HAD NOT BEEN TOLD IN REPORT. HE STATES HE WAS CONFUSED AND DID NOT TELL ANYONE. DR HALL ORDERED A HEAD CT TO BE SURE PATIENT DID NOT HIT HIS HEAD.
--- NOTE | 2018-04-27 15:02 | NUR ---
PATIENT IS ABLE MOVE HIS FOOT IN CIRCULAR MOTIONS.
[2018-04-27 16:03] VITALS: BP 134/67
--- NOTE | 2018-04-27 19:15 | NUR ---
RESTING ON BACK WITH EYES CLOSED. OPENED EYES TO VERBAL STIMULI. RATES PAIN LEVEL OF RIGHT FOOT AT 4/10 SCALE. DENIES ANY NEEDS. DRSG ON R FOOT C/D/I. ORIENTED TO CL FOR ANY NEEDS.
[2018-04-27 19:55] VITALS: BP 113/57
--- NOTE | 2018-04-27 23:25 | NUR ---
ALERT/AWAKE EATING DIABETIC SNACK. ADMIN BUPRENEX 0.1MG PER REQUEST FOR C/O RT FOOT PAIN DESCRIBED "BURNING". FOOT ELEVATED ON PILLOW. HEMOVAC ATTACHED. NO OTHER NEEDS VOICED.
[2018-04-27 23:55] VITALS: BP 105/50
[2018-04-28 03:56] VITALS: BP 143/46
--- NOTE | 2018-04-28 06:19 | NUR ---
TWO CERTIFIED FIRST ASSISTANT'S UNABLE TO DRAW BLOOD FOR LABS ORDERED.
--- NOTE | 2018-04-28 07:45 | NUR ---
RECIEVED BEDSIDE REPORT. AM ROUNDS COMPLETED. PT AM VSS, [id number]. PT IN BED WITH EYES CLOSED. WILL CTM. CL IN REACH, BED IN LOW. SR UP X2.
[2018-04-28 08:28] VITALS: BP 150/72
[2018-04-28 12:10] VITALS: BP 144/81
--- NOTE | 2018-04-28 12:30 | NUR ---
PT HEMOVAC REMOVED BY DR. GONZALEZ. PT TOLERATE WELL. BANDAGE STILL WRAPPED AROUND PT FOOT. PT CURRENLTY EATING LUNCH. WILL CTM. CL IN REACH, BED IN LOW.
--- NOTE | 2018-04-28 13:01 | NUR ---
LAXMI FLORES, NOTIFIED ME PT HAD MODERATE BLEEDING FROM THE SITE HEMOVAC WAS PULLED OUT. PRESSURE WAS APPLIED AND THE DRESSING WAS REINFORCED WITH 4X4 GAUZE AND WRAPPED AROUND WITH BANDAGE. PT STATES HE IS IN PAIN. STATES ITS A 10. PO NORCO GIVEN AT THIS TIME. WILL CTM.
--- NOTE | 2018-04-28 13:04 | NUR ---
DR GONZALEZ NOTIFIED ABOUT PT BLEEDING TOES. DR ORDERED THAT THE DRESSING BE REINFORCEDN AND TO CALL IF IT DOES NOT STOP BLEEDING. WILL CTM. CL IN REACH, BED IN LOW.
--- NOTE | 2018-04-28 16:00 | NUR ---
VAMP CUT OUT WORKER REPORTS THAT PT REFUSED TO GET HIS BED CHANGED BECAUSE HIS RIGHT TOES MIGHT BLEED AGAIN. PT CURRENLTY RESTING IN BED. DENIES NO FURTHER NEEDS AT THIS TIME.
[2018-04-28 16:55] VITALS: BP 132/55
[2018-04-28 19:50] VITALS: BP 113/50
[2018-04-28 23:52] VITALS: BP 116/46
[2018-04-29 03:45] VITALS: BP 129/71
--- NOTE | 2018-04-29 08:00 | NUR ---
RECIEVED BEDSIDE REPORT. AM ROUNDS COMPLETED. VSS, AAOX3, PT UP IN BED WITH EYES OPEN. STUDENT NURSE IN PT ROOM. NO S/S OF RR DISTRESS, RR EVEN AND UNLABORED. ASSESSED PT RIGHT TOES, NO S/S BLEEDING NOTED. DRESSING C/D/I. PT DENIES ANY NEEDS FOR PAIN AT THIS TIME. PT READY FOR DIALYSIS. WILL CPOC. CL IN REACH, BED IN LOW, LEG ELEVATED ON HEART LEVEL.
[2018-04-29 08:44] VITALS: BP 110/53
--- NOTE | 2018-04-29 09:00 | NUR ---
PT OUT FOR DIALYSIS. WILL CPOC. PT AM BP HELD AT THIS TIME. WILL ADMINISTER AFTER DIALYSIS.
--- NOTE | 2018-04-29 10:17 | NUR ---
PT STATES HIS IN PAIN AND REQUESTED FOR FOR PAIN MEDS FROM DIALYSIS. IV BUPRENEX ADMINISTERED TO PT AT THIS TIME. WILL CTM.
--- NOTE | 2018-04-29 13:44 | NUR ---
PT BACK FROM DIALYSIS. RECIEVED REPORT FROM [facility]. REMOVED 3L, BP 107/65, HR 70, TEMP 98.2, R 18.
[2018-04-29 16:01] VITALS: BP 118/63
--- NOTE | 2018-04-29 19:30 | NUR ---
AWAKE ORIENTED X4. DENIES ANY NEEDS. RATES PAIN LEVEL OF RT FOOT AT 5/10 ON NUMBER SCALE, DESCRIBED BURNING SENSATION. RT FOOT ELEVATED ON PILLOW. DRSG C/D/I. IV IN R FA INTACT SL. L ARM FISTULA HAS GOOD BRUIT/THRILL. HAS CALL LIGHT AND BEDSIDE TABLE WITH PERSONAL ITEMS IN REACH.
[2018-04-29 20:00] VITALS: BP 134/63
--- NOTE | 2018-04-29 21:30 | NUR ---
ADMIN SCHED MEDS AND BUPRENEX 0.1MG IV PER REQUEST FOR C/O RT FOOT PAIN. CHECKED BS AT 227, REFUSED INSULIN. VISITORS PRESENT IN ROOM.
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
[2018-04-30] VITALS: BP 147/75
--- NOTE | 2018-04-30 03:30 | NUR ---
ADMIN BUPRENEX 0.1MG IV PER REQUEST FOR C/O RT FOOT PAIN. NO OTHER NEEDS VOICED.
[2018-04-30 04:00] VITALS: BP 139/77
[2018-04-30 09:17] LABS: HEPATITIS C ANTIBODY >11.0 S/CO RAT (0.0-0.9)
[2018-04-30 09:47] VITALS: BP 131/78
--- NOTE | 2018-04-30 19:36 | NUR ---
PT ASLEEP, RESP EVEN AND UNLABORED. NO S/S OF DISTRESS. BEDLOW AND CALL LIGHT IN REACH. NAME AND DATE PLACED ON BOARD. PT WILL CALL FOR ASSIST WHEN NEEDED. WILL CPOC
[2018-04-30 20:00] VITALS: BP 125/55
--- NOTE | 2018-04-30 22:43 | NUR ---
PT REFUSES INSULIN FOR FSBS OF 183, PT IS AAO. RIGHT FOREARM IV S/L. RIGHT FOOT DRSG CDI. PT HAS NO S/S OF DISTRESS. NIGHT MEDS GIVEN PT REQUEST BUPRENEX FOR PAIN. DENIES ANY OTHER NEEDS. PT WILL CALL FOR ASSIST WHEN NEEDED. WILL CPOC
[2018-05-01] VITALS: BP 150/77
--- NOTE | 2018-05-01 02:22 | NUR ---
PT COMPLAINS OF PAIN NORCO GIVEN, PT DENIES ANT OTHER NEEDS WILL CPOC
--- NOTE | 2018-05-01 02:25 | NUR ---
PT C/O TOES BURNING PAIN IS A 9 OF 10 NORCO GIVEN
[2018-05-01 04:00] VITALS: BP 132/61
--- NOTE | 2018-05-01 05:53 | NUR ---
PT FSBS IS 158, PT REFUSES ANY INSULIN AT THIS TIME. PT LAYING ON LEFT SIDE. NO S/S OF DISTRESS. RIGHT FOOT DRSG CDI. PT WILL CALL FOR ASSIST WHEN NEEDED. BEDLOW AND CALL LIGHT IN REACH. WILL CPOC
[2018-05-01 06:25] LABS: BASOPHILS 0.3 % (0-2); EOSINOPHILS 0.9 % (0-7); HEMOGLOBIN 8.6 g/dL (13.5-17.5); IMMATURE GRANULOCYTES 0.8 % (0-5); LYMPHOCYTES 16.4 % (15-50); MCH 30.7 pg (26.0-34.0); MCHC 33.1 g/dL (31.0-37.0); MCV 92.9 fL (80.0-100.0); MEAN PLATELET VOLUME 10.1 fL (7.4-10.4); MONOCYTES 8.4 % (2-11); NEUTROPHILS 73.2 % (40-80); PLATELET COUNT 210 10x3/uL (130-400); RDW 12.9 % (11.5-14.5); WBC 9.6 10x3/uL (4.8-10.8)
[2018-05-01 07:00] LABS: ANION GAP 22.3 mmol/L (8-16); CALCIUM 8.3 mg/dL (8.5-10.1); CARBON DIOXIDE 24.8 mmol/L (21.0-32.0); POTASSIUM - SERUM 5.1 mmol/L (3.5-5.1)
[2018-05-01 07:32] LABS: PHOSPHOROUS 10.1 mg/dL (2.5-4.9)
[2018-05-01 08:07] VITALS: BP 124/56
--- NOTE | 2018-05-01 09:03 | NUR ---
Rehab Note- Acute Inpatient Rehab prescreen order received. The patient has Medicaid and does note have acute inpatient rehab benefits. Thank you for this referral! Palmira Langford RN Clinical Liaison, [facility] Rehab
--- NOTE | 2018-05-01 14:35 | NUR ---
REMOVED PATIENTS FOOT DRESSING. REDRESSED FOOT WITH XEROFORM 4X4S AND KERLIX. PAIN WELL CONTROLLED WITH PAIN MEDICATION. BED IN LOW POSITION AND CALL LIGHT IS IN REACH. PATIENT DENIES ANY OTHER NEEDS AT THIS TIME
--- NOTE | 2018-05-01 15:19 | NUR ---
Pt is on a regular diet with 100% intake of most meals Pt reports good appetite and no nutritional requests at this time. Reviewed chart RD following
[2018-05-01 15:33] VITALS: BP 120/55
--- NOTE | 2018-05-01 15:53 | MORECARE ---
CASE MANAGEMENT DISCHARGE SUMMARY PATIENT: NADIA WHITT UNIT: [id number] ADM DATE: 04/17/18 AGE: 52 : 69 SEX: M ROOM/BED: D.4766 AUTHOR: BRIAN ELLSWORTH PHYSICIAN: REFERRING PHYSICIAN: TREASURE RIVERO MD DATE OF SERVICE: 05/01/18 Discharge Plan Patient Name: NADIA WHITT Facility: [facility]:[place] : 1965 Planned Disposition: Home with Home Health Anticipated Discharge Date: 05/02/18 Discharge Date: Expected LOS: 15 Initial Reviewer: [email or web address] Initial Review Date: 04/19/2018 Generated: 05/01/18 4:53 pm Comments DCP- Discharge Planning Updated by [email or web address]: Dianna Bustos on 04/19/18 6:[address] Patient Name: NADIA WHITT Admission Status: ER Accout number: [id number] Admission Date: 04-17-2018 : 1965 Admission Diagnosis:OTHER DISORDER OF CIRCULATORY SYSTEM Attending: TREASURE RIVERO Current LOS: 2 Anticipated DC Date: Planned Disposition: Home Primary Insurance: MEDICAID [place] Discharge Planning Comments: CM met with patient at bedside. Patient states he lives at home alone and plans to return to his home upon discharge. Patient states he doesn't have any medical equipment or home health services. Patient does have hemodialysis @ [facility]. Patient denies any discharge needs at this time. CM will continue to follow and assist as needed with discharge planning / needs. Consulting Hr Professional: Dianna Bustos DCP- Discharge Planning Updated by [email or web address]: Dianna Bustos on 04/17/18 4:[address] CM will do intake discharge planning assessment at later time. Patient is currently drowsy from procedure. CM will continue to follow and assist as needed with discharge planning / needs DCPIA - Discharge Planning Initial Assessment Updated by [email or web address]: Dianna Bustos on 04/19/18 7:24 pm * Is the patient Alert and Oriented? Yes * How many steps to enter\exit or inside your home? 18 * PCP Rachid * Pharmacy [facility] * Preadmission Environment Home Alone * ADLs Independent * Equipment None * List name and contact numbers for known caregivers / representatives who currently or will assist patient after discharge: Shola Whitt - father- [phone] * Verbal permission to speak to the caregivers and representatives has been obtained from the patient. N/A * Community resources currently utilized None * Please name any agencies selected above. [facility] - hemodialysis - MWF - 10-2:30 * Additional services required to return to the preadmission environment? No * Can the patient safely return to the preadmission environment? Yes * Has this patient been hospitalized within the prior 30 days at any hospital? No External Providers External Provider: [facility] Next Contact Date: 05/02/2018 Service Request Date: Service Type: Resolution: Reviewer: Comments: External Provider: [facility] Next Contact Date: 05/02/2018 Service Request Date: Service Type: Resolution: Reviewer: Comments: Last DP export: 04/19/18 6:29 pm Patient Name: NADIA WHITT Page [phone] at 1553 All edits/amendments must be made on the electronic document DICTATION DATE: 05/01/181551 BRICK TESTER: ANJU 05/01/181551 RPT#: [id number] DC DATE: STATUS: ADM IN [facility] [address] [place] [address] END OF REPORT
--- NOTE | 2018-05-01 16:02 | MORECARE ---
CASE MANAGEMENT DISCHARGE SUMMARY PATIENT: NADIA WHITT UNIT: [id number] ADM DATE: 04/17/18 AGE: 52 : 69 SEX: M ROOM/BED: D.7688 AUTHOR: JODEEDOC PHYSICIAN: REFERRING PHYSICIAN: TREASURE RIVERO MD DATE OF SERVICE: 05/01/18 Discharge Plan Patient Name: NADIA WHITT Facility: [facility]:[place] : 1965 Planned Disposition: Home with Home Health Anticipated Discharge Date: 05/02/18 Discharge Date: Expected LOS: 15 Initial Reviewer: [email or web address] Initial Review Date: 04/19/2018 Generated: 05/01/18 5:02 pm Comments DCP- Discharge Planning Updated by [email or web address]: Jacek Leon on 05/01/18 2:[address] Patient Name: NADIA WHITT Encounter No: [id number] : 1965 Primary Insurance: MEDICAID [place] Anticipated DC Date: 05-02-2018 Planned Disposition: Home with Home Health External Planned Provider: [facility] DCP follow-up note: CM RECEIVED ORDER FOR INPATIENT REHAB PRESCREENING. CM MET WITH PT IN ROOM, DISCUSSED AVAILABILITY OF HOME HEALTH, REHAB SERVICES AND MEDICAL EQUIPMENT. PT HAS MEDICAID INSURANCE WITH NO AVAILABLE DAYS FOR REHAB IN INPATIENT REHAB; MEDICAID WILL NOT COVER REHAB IN SHELTER FACILITY. PT IS NOT WILLING FOR RESTORATIVE CARE / SNF CARE PLACEMENT IN SENIOR LIVING HE WOULD LOSE HIS CHECK. PT WANTS TO GO HOME AND REPORTS THAT HE HAS AVAILABILITY OF FIRST FLOOR APARTMENT AND SUPPORTIVE EMPLOYER. PT REPORTS HE FEELS WELL ENOUGH TO GO HOME WITH HOME BASED THERAPY. PT WOULD RATHER HOME HEALTH THERAPY INSTEAD OF OUTPATIENT THERAPY. PT REPORTS HAVING FRIENDS TO ASSIST WITH DRESSING CHANGES AND OTHER NEEDS THEY ARISE AT HOME. PT REPORTS ABILITY TO GET TO HIS DIALYSIS UNIT NEEDED. CHOICE LISTING FOR HOME HEALTH PROVIDED, PT REPORTS ANY HOME HEALTH IS OK EXCEPT FOR [facility] PER HIS FRIEND. CHOICE SIGNED FOR ANY HOME HEALTH EXCEPT [facility]. CM RETURND TO PT'S ROOM LATER AFTER DETERMINING THAT PT WILL REQUIRE WALKER AT HOME FOR ASSISTANCE WITH AMBULATION. CM DISCUSSED COMPANY AVAILABIITY AND PROVIDED MEDICAL EQUIPMENT COMPANY LISTING. PT SIGNED CHOICE FOR ANY. PT REPORTS HAVING FRIENDS FOR TRANSPORT HOME AT DISCHARGE. CM CALLED [facility], , SPOKE TO NICOL[facility]S WHO ACCEPTED REFERRAL FOR ADMIT ON 05-03-18. CM FAXED REFERRAL TO [facility] AT [phone]. CM REQUIRES ORDER FOR [facility] AND PHYSICAL THERAPY TO ARRANGE WALKER AND COMPLETE HOME HEALTH ARRANGEMENTS WITH [facility]. Jacek Leon, CASE MANAGEMENT DCP- Discharge Planning Updated by [email or web address]: Dianna Bustos on 04/19/18 6:[address] Patient Name: NADIA WHITT Admission Status: ER Accout number: [id number] Admission Date: 04-17-2018 : 1965 Admission Diagnosis:OTHER DISORDER OF CIRCULATORY SYSTEM Attending: TREASURE RIVERO Current LOS: 2 Anticipated DC Date: Planned Disposition: Home Primary Insurance: MEDICAID [place] Discharge Planning Comments: CM met with patient at bedside. Patient states he lives at home alone and plans to return to his home upon discharge. Patient states he doesn't have any medical equipment or home health services. Patient does have hemodialysis @ [facility] - MWF. Patient denies any discharge needs at this time. CM will continue to follow and assist as needed with discharge planning / needs. Physical Anthropologist: Dianna Bustos DCP- Discharge Planning Updated by [email or web address]: Dianna Bustos on 04/17/18 4:[address] CM will do intake discharge planning assessment at later time. Patient is currently drowsy from procedure. CM will continue to follow and assist as needed with discharge planning / needs DCPIA - Discharge Planning Initial Assessment Updated by [email or web address]: Dianna Bustos on 04/19/18 7:24 pm * Is the patient Alert and Oriented? Yes * How many steps to enter\exit or inside your home? 18 * PCP Rachid * [facility] [place] & * Preadmission Environment Home Alone * ADLs Independent * Equipment None * List name and contact numbers for known caregivers / representatives who currently or will assist patient after discharge: Shola Whitt - father- [phone] * Verbal permission to speak to the caregivers and representatives has been obtained from the patient. N/A * Community resources currently utilized None * Please name any agencies selected above. [facility] - hemodialysis - MWF - 10-2:30 * Additional services required to return to the preadmission environment? No * Can the patient safely return to the preadmission environment? Yes * Has this patient been hospitalized within the prior 30 days at any hospital? No Coverage Notice Reviewer: [email or web address] Leon Notice Issued Date-Time: 05/01/2018 13:55 Notice Type: Patient Choice Letter Notice Delivered To: Patient Relationship to Patient: Storage Center Manager Name: Delivery Method: HAND - Hand Delivered Ellyn Days: Prior Verbal Notification: Recipient Understood Notice: Yes Recipient Signature: Yes Med Rec Note Co-signed by Attending: Coverage Notice Comment: ANY HOME HEALTH EXCEPT [facility] Reviewer: [email or web address] Tiffany Leon Notice Issued Date-Time: 05/01/2018 15:30 Notice Type: Patient Choice Letter Notice Delivered To: Patient Relationship to Patient: Storage Center Manager Name: Delivery Method: HAND - Hand Delivered Ellyn Days: Prior Verbal Notification: Recipient Understood Notice: Yes Recipient Signature: Yes Med Rec Note Co-signed by Attending: Coverage Notice Comment: ANY MEDICAL EQUIPMENT COMPANY Last DP export: 05/01/18 2:53 p Patient Name: NADIA WHITT Page [phone] at 1602 All edits/amendments must be made on the electronic document DICTATION DATE: 05/01/181600 SUBASSEMBLER: ANJU 05/01/181600 RPT#: [id number] DC DATE: STATUS: ADM IN [facility] [address] [place] [address] END OF REPORT
--- NOTE | 2018-05-01 19:30 | NUR ---
PT ASLEEP, LAYING ON LEFT SIDE. RIGHT FOREARM IV S/L RIGHT FOOT DRSG CDI, BEDLOW AND CALL LIGHT IN REACH. RESP EVEN AND UNLABORED. NAME AND DATE PLACED ON BOARD. WILL CPOC
[2018-05-01 20:00] VITALS: BP 95/40
--- NOTE | 2018-05-01 21:32 | NUR ---
PT FSBS IS 253, 6 UNITS OF INSULIN GIVEN ORDERED PER SLIDING SCALE. PT HEPARIN GIVEN ORDERED. PT DENIES ANY NEEDS. NO S/S OF DISTRESS. WILL CPOC
--- NOTE | 2018-05-01 21:39 | NUR ---
PT COMPLAINS OF PAIN IN RIGHT FOOT, NORCO GIVEN PT DENIES ANY OTHER NEEDS. WILL CPCO
[2018-05-02] VITALS: BP 115/37
[2018-05-02 04:00] VITALS: BP 118/40
--- NOTE | 2018-05-02 06:36 | NUR ---
PT LAYING ON LEFT SIDE. HARD TO AROUSE FOR FSBS IT IS 156 PT REFUSES INSULIN. PT DENIES ANY NEEDS. STATES HE JUST WANTS TO SLEEP. PT HAS NO S/S OF DISTRESS. BEDLOW AND CALL LIGHT IN REACH. WILL CPOC
[2018-05-02 06:42] LABS: BASOPHILS 0.5 % (0-2); EOSINOPHILS 1.5 % (0-7); HEMATOCRIT 28.5 % (42.0-54.0); HEMOGLOBIN 9.4 g/dL (13.5-17.5); IMMATURE GRANULOCYTES 1.4 % (0-5); LYMPHOCYTES 15.8 % (15-50); MCH 31.2 pg (26.0-34.0); MCV 94.7 fL (80.0-100.0); MEAN PLATELET VOLUME 10.6 fL (7.4-10.4); MONOCYTES 10.1 % (2-11); NEUTROPHILS 70.7 % (40-80); RBC 3.01 10x6/uL (4.20-6.10); RDW 13.4 % (11.5-14.5); WBC 10.9 10x3/uL (4.8-10.8)
[2018-05-02 06:43] LABS: PLATELET COUNT 271 10x3/uL (130-400)
--- NOTE | 2018-05-02 08:30 | NUR ---
PT RESTING IN BED. ATE 100% OF BREAKFAST. AM MEDICATIONS GIVEN ORDERED, NO COMPLICATIONS NOTED AT THIS TIME . PT REPORTS PAIN OF 8/10, PRN NORCO GIVEN ORDERED. ORTHOPEDIC AMBULANCE ASSISTANT PRESENT IN ROOM AND TOOK OFF DRESSING TO PATIENT'S RIGHT FOOT. MARICHUY INTACT, DRIED BLOOD PRESENT. CLEAN DRESSING APPLIED ORDERED. SHIFT ASSESSMENT PERFORMED. DENIES NEEDS AT THIS TIME, CALL LIGHT WITHIN REACH. WILL CONT TO FOLLOW PLAN OF CARE
[2018-05-02 08:40] VITALS: BP 151/67
[2018-05-02 11:37] VITALS: BP 142/79
--- NOTE | 2018-05-02 12:07 | MORECARE ---
CASE MANAGEMENT DISCHARGE SUMMARY PATIENT: NADIA WHITT UNIT: [id number] ADM DATE: 04/17/18 AGE: 52 : 69 SEX: M ROOM/BED: D.8233 AUTHOR: JODEEDOC PHYSICIAN: REFERRING PHYSICIAN: TREASURE RIVERO MD DATE OF SERVICE: 05/02/18 Discharge Plan Patient Name: NADIA WHITT Facility: [facility]:[place] : 1965 Planned Disposition: Home with Home Health Anticipated Discharge Date: 05/03/18 Discharge Date: Expected LOS: 16 Initial Reviewer: [email or web address] Initial Review Date: 04/19/2018 Generated: 05/02/18 1:07 pm Comments DCP- Discharge Planning Updated by [email or web address]: Jacek Leon on 05/01/18 2:[address] Patient Name: NADIA WHITT Encounter No: [id number] : 1965 Primary Insurance: MEDICAID [place] Anticipated DC Date: 05-02-2018 Planned Disposition: Home with Home Health External Planned Provider: [facility] DCP follow-up note: CM RECEIVED ORDER FOR INPATIENT REHAB PRESCREENING. CM MET WITH PT IN ROOM, DISCUSSED AVAILABILITY OF HOME HEALTH, REHAB SERVICES AND MEDICAL EQUIPMENT. PT HAS MEDICAID INSURANCE WITH NO AVAILABLE DAYS FOR REHAB IN INPATIENT REHAB; MEDICAID WILL NOT COVER REHAB IN SHELTER FACILITY. PT IS NOT WILLING FOR RESTORATIVE CARE / NURSING HOME CARE PLACEMENT IN [place] HE WOULD LOSE HIS CHECK. PT WANTS TO GO HOME AND REPORTS THAT HE HAS AVAILABILITY OF FIRST FLOOR APARTMENT AND SUPPORTIVE EMPLOYER. PT REPORTS HE FEELS WELL ENOUGH TO GO HOME WITH HOME BASED THERAPY. PT WOULD RATHER HOME HEALTH THERAPY INSTEAD OF OUTPATIENT THERAPY. PT REPORTS HAVING FRIENDS TO ASSIST WITH DRESSING CHANGES AND OTHER NEEDS THEY ARISE AT HOME. PT REPORTS ABILITY TO GET TO HIS DIALYSIS UNIT NEEDED. CHOICE LISTING FOR HOME HEALTH PROVIDED, PT REPORTS ANY HOME HEALTH IS OK EXCEPT FOR [facility] PER HIS FRIEND. CHOICE SIGNED FOR ANY HOME HEALTH EXCEPT [facility]. CM RETURND TO PT'S ROOM LATER AFTER DETERMINING THAT PT WILL REQUIRE WALKER AT HOME FOR ASSISTANCE WITH AMBULATION. CM DISCUSSED COMPANY AVAILABIITY AND PROVIDED MEDICAL EQUIPMENT COMPANY LISTING. PT SIGNED CHOICE FOR ANY. PT REPORTS HAVING FRIENDS FOR TRANSPORT HOME AT DISCHARGE. CM CALLED [facility], , SPOKE TO NICOLÁS WHO ACCEPTED REFERRAL FOR ADMIT ON 05-03-18. CM FAXED REFERRAL TO [facility] AT [phone]. CM REQUIRES ORDER FOR [facility]UR[facility] AND PHYSICAL THERAPY TO ARRANGE WALKER AND COMPLETE HOME HEALTH ARRANGEMENTS WITH [facility]. Jacek Leon, CASE MANAGEMENT DCP- Discharge Planning Updated by [id number]: Dianna Bustos on 04/19/18 6:[address] Patient Name: NADIA WHITT Admission Status: ER Accout number: [id number] Admission Date: 04-17-2018 : 1965 Admission Diagnosis:OTHER DISORDER OF CIRCULATORY SYSTEM Attending: TREASURE RIVERO Current LOS: 2 Anticipated DC Date: Planned Disposition: Home Primary Insurance: MEDICAID [place] Discharge Planning Comments: CM met with patient at bedside. Patient states he lives at home alone and plans to return to his home upon discharge. Patient states he doesn't have any medical equipment or home health services. Patient does have hemodialysis @ [facility] - MWF. Patient denies any discharge needs at this time. CM will continue to follow and assist as needed with discharge planning / needs. Access Rep: Dianna Bustos DCP- Discharge Planning Updated by [id number]: Dianna Bustos on 04/17/18 4:[address] CM will do intake discharge planning assessment at later time. Patient is currently drowsy from procedure. CM will continue to follow and assist as needed with discharge planning / needs DCPIA - Discharge Planning Initial Assessment Updated by [email or web address]: Dianna Bustos on 04/19/18 7:24 pm * Is the patient Alert and Oriented? Yes * How many steps to enter\exit or inside your home? 18 * PCP Rachid * [facility] [place] & * Preadmission Environment Home Alone * ADLs Independent * Equipment None * List name and contact numbers for known caregivers / representatives who currently or will assist patient after discharge: Shola Whitt - father- [phone] * Verbal permission to speak to the caregivers and representatives has been obtained from the patient. N/A * Community resources currently utilized None * Please name any agencies selected above. [facility] - hemodialysis - MWF - 10-2:30 * Additional services required to return to the preadmission environment? No * Can the patient safely return to the preadmission environment? Yes * Has this patient been hospitalized within the prior 30 days at any hospital? No Coverage Notice Reviewer: [email or web address] Leon Notice Issued Date-Time: 05/01/2018 13:55 Notice Type: Patient Choice Letter Notice Delivered To: Patient Relationship to Patient: Line Leader Name: Delivery Method: HAND - Hand Delivered Ellyn Days: Prior Verbal Notification: Recipient Understood Notice: Yes Recipient Signature: Yes Med Rec Note Co-signed by Attending: Coverage Notice Comment: ANY HOME HEALTH EXCEPT [facility] Reviewer: [email or web address] Tiffany Leon Notice Issued Date-Time: 05/01/2018 15:30 Notice Type: Patient Choice Letter Notice Delivered To: Patient Relationship to Patient: Line Leader Name: Delivery Method: HAND - Hand Delivered Ellyn Days: Prior Verbal Notification: Recipient Understood Notice: Yes Recipient Signature: Yes Med Rec Note Co-signed by Attending: Coverage Notice Comment: ANY MEDICAL EQUIPMENT COMPANY Last DP export: 05/01/18 3:02 p Patient Name: NADIA WHITT Page 43979 at 1207 All edits/amendments must be made on the electronic document DICTATION DATE: 05/02/181206 SEED CORN MANAGER PRODUCTION: ANJU 05/02/18 1207 RPT#: [id number] DC DATE: STATUS: ADM IN [facility] [address] [place] [address] END OF REPORT
--- NOTE | 2018-05-02 12:23 | MORECARE ---
CASE MANAGEMENT DISCHARGE SUMMARY PATIENT: NADIA WHITT UNIT: [id number] ADM DATE: 04/17/18 AGE: 52 : [birth year] SEX: M ROOM/BED: D.2136 AUTHOR: BRIAN ELLSWORTH PHYSICIAN: REFERRING PHYSICIAN: TREASURE RIVERO MD DATE OF SERVICE: 05/02/18 Discharge Plan Patient Name: NADIA WHITT Facility: [facility]:[place] : 1965 Planned Disposition: Home with Home Health Anticipated Discharge Date: 05/03/18 Discharge Date: Expected LOS: 16 Initial Reviewer: [id number] Initial Review Date: 04/19/2018 Generated: 05/02/18 1:23 pm Comments DCP- Discharge Planning Updated by [email or web address]: Jacek Leon on 05/02/18 11:[address] Patient Name: NADIA WHITT Encounter No: [id number] : 1965 Primary Insurance: MEDICAID [place] Anticipated DC Date: 05-03-2018 Planned Disposition: Home with Home Health External Planned Provider: [facility] DCP follow-up note: CM RECEIVED NURSING MESSAGE FOR DISCHARGE PLANNING FOR TOMORROW WITH HOME HEALTH. CM CALLED [facility], , SPOKE TO NICOLÁS WHO PLACED PT ON SCHEDULE FOR ADMIT ON 05-04-18. CM FAXED REFERRAL UPDATE TO [facility] AT [phone]. CM RECEIVED ORDER FOR WALKER, [facility] AT [phone]. CM CALLED [facility], , SPOKE TO JOSHUA WHO WILL HAVE WALKER DELIVERED TO PT'S ROOM TODAY FOR DISCHARGE HOME. FOR DISCHARGE, NOTIFY [facility] AT [phone], FAX DISCHARGE INFORMATION TO [facility] AT [phone]. FARSHAD Todd DCP- Discharge Planning Updated by [id number]: Jacek Leon on 05/01/18 2:[address] Patient Name: NADIA WHITT Encounter No: [id number] : 1965 Primary Insurance: MEDICAID [place] Anticipated DC Date: 05-02-2018 Planned Disposition: Home with Home Health External Planned Provider: [facility] DCP follow-up note: CM RECEIVED ORDER FOR INPATIENT REHAB PRESCREENING. CM MET WITH PT IN ROOM, DISCUSSED AVAILABILITY OF HOME HEALTH, REHAB SERVICES AND MEDICAL EQUIPMENT. PT HAS MEDICAID INSURANCE WITH NO AVAILABLE DAYS FOR REHAB IN INPATIENT REHAB; MEDICAID WILL NOT COVER REHAB IN [facility] FACILITY. PT IS NOT WILLING FOR RESTORATIVE CARE / MCC CARE PLACEMENT IN [facility] HE WOULD LOSE HIS CHECK. PT WANTS TO GO HOME AND REPORTS THAT HE HAS AVAILABILITY OF FIRST FLOOR APARTMENT AND SUPPORTIVE EMPLOYER. PT REPORTS HE FEELS WELL ENOUGH TO GO HOME WITH HOME BASED THERAPY. PT WOULD RATHER HOME HEALTH THERAPY INSTEAD OF OUTPATIENT THERAPY. PT REPORTS HAVING FRIENDS TO ASSIST WITH DRESSING CHANGES AND OTHER NEEDS THEY ARISE AT HOME. PT REPORTS ABILITY TO GET TO HIS DIALYSIS UNIT NEEDED. CHOICE LISTING FOR HOME HEALTH PROVIDED, PT REPORTS ANY HOME HEALTH IS OK EXCEPT FOR [facility] PER HIS FRIEND. CHOICE SIGNED FOR ANY HOME HEALTH EXCEPT [facility]. CM RETURND TO PT'S ROOM LATER AFTER DETERMINING THAT PT WILL REQUIRE WALKER AT HOME FOR ASSISTANCE WITH AMBULATION. CM DISCUSSED COMPANY AVAILABIITY AND PROVIDED MEDICAL EQUIPMENT COMPANY LISTING. PT SIGNED CHOICE FOR ANY. PT REPORTS HAVING FRIENDS FOR TRANSPORT HOME AT DISCHARGE. CM CALLED [facility], , SPOKE TO NICOLÁS WHO ACCEPTED REFERRAL FOR ADMIT ON 05-03-18. CM FAXED REFERRAL TO [facility] AT [phone]. CM REQUIRES ORDER FOR [facility] NURSING AND PHYSICAL THERAPY TO ARRANGE WALKER AND COMPLETE HOME HEALTH ARRANGEMENTS WITH [facility]. Jacek Leon, CASE MANAGEMENT DCP- Discharge Planning Updated by [id number]: Dainna Bustos on 04/19/18 6:[address] Patient Name: NADIA WHITT Admission Status: ER Accout number: [id number] Admission Date: 04-17-2018 : 1965 Admission Diagnosis:OTHER DISORDER OF CIRCULATORY SYSTEM Attending: TREASURE RIVERO Current LOS: 2 Anticipated DC Date: Planned Disposition: Home Primary Insurance: MEDICAID [place] Discharge Planning Comments: CM met with patient at bedside. Patient states he lives at home alone and plans to return to his home upon discharge. Patient states he doesn't have any medical equipment or home health services. Patient does have hemodialysis @ [facility]. Patient denies any discharge needs at this time. CM will continue to follow and assist as needed with discharge planning / needs. Driller'S Offsider: Dianna Bustos DCP- Discharge Planning Updated by [email or web address]: Dianna Bustos on 04/17/18 4:[address] CM will do intake discharge planning assessment at later time. Patient is currently drowsy from procedure. CM will continue to follow and assist as needed with discharge planning / needs DCPIA - Discharge Planning Initial Assessment Updated by [email or web address]: Dianna Bustos on 04/19/18 7:24 pm * Is the patient Alert and Oriented? Yes * How many steps to enter\exit or inside your home? 18 * PCP Rachid * Pharmacy [facility] * Preadmission Environment Home Alone * ADLs Independent * Equipment None * List name and contact numbers for known caregivers / representatives who currently or will assist patient after discharge: Shola Whitt - [facility]- [phone] * Verbal permission to speak to the caregivers and representatives has been obtained from the patient. N/A * Community resources currently utilized None * Please name any agencies selected above. ORD - hemodialysis - MWF - 10-2:30 * Additional services required to return to the preadmission environment? No * Can the patient safely return to the preadmission environment? Yes * Has this patient been hospitalized within the prior 30 days at any hospital? No Coverage Notice Reviewer: [id number] Tiffany Leon Notice Issued Date-Time: 05/01/2018 13:55 Notice Type: Patient Choice Letter Notice Delivered To: Patient Relationship to Patient: Hydraulic Jack Adjuster Name: Delivery Method: HAND - Hand Delivered Ellyn Days: Prior Verbal Notification: Recipient Understood Notice: Yes Recipient Signature: Yes Med Rec Note Co-signed by Attending: Coverage Notice Comment: ANY HOME HEALTH EXCEPT [facility] Reviewer: [id number] Tiffany Leon Notice Issued Date-Time: 05/01/2018 15:30 Notice Type: Patient Choice Letter Notice Delivered To: Patient Relationship to Patient: Hydraulic Jack Adjuster Name: Delivery Method: HAND - Hand Delivered Ellyn Days: Prior Verbal Notification: Recipient Understood Notice: Yes Recipient Signature: Yes Med Rec Note Co-signed by Attending: Coverage Notice Comment: ANY MEDICAL EQUIPMENT COMPANY Last DP export: 05/02/18 11:07 a Patient Name: NADIA WHITT Page 66776 at 1223 All edits/amendments must be made on the electronic document DICTATION DATE: 05/02/181221 SLURRY BLENDER: ANJU 05/02/181221 RPT#: [id number] DC DATE: STATUS: ADM IN [facility] [address] [place] [address] END OF REPORT
[2018-05-02 15:56] VITALS: BP 161/65
--- NOTE | 2018-05-02 19:32 | NUR ---
PT ASLEEP. LAYING ON LEFT SIDE, AROUSES TO PHYSICAL STIMULI. PT IS AAO, RIGHT FOREARM IV INTACT. LEFT AV FISTULA BRUIT AND THRILL NOTED. RIGHT FOOT DRSG CDI. WALKER AT BEDSIDE FOR AMBULATION. PT ABDOMEN SLIGHTLY DISTENDED, BOWEL SOUNDS ACTIVE. PT STATES DID NOT HAVE BM TODAY, HASNT HAD BM SINCE THE MORNING OF THE MORNING OF THE . PT HAS NO S/S OF DISTRESS. DENIES ANY NEEDS. NOURISHMENT,CALL LIGHT IN REACH. PT WILL CALL FOR ASSIST WHEN NEEDED. WILL CPOC
[2018-05-02 20:00] VITALS: BP 145/64
--- NOTE | 2018-05-02 21:35 | NUR ---
PT FSBS IS 233 6 UNITS OF INSULIN GIVEN ORDERED. PT WITHDRAWN AND STATES HE FEELS DOWN BECAUSE NO FAMILY HAS CAME AND VISISTED HIM. PT COMPLAINS OF PAIN. NORCO GIVEN. PT RIGHT FOOT DRSG CDI. PT HAS NO S/S OF DISTRESS. BEDLOW AND CALL LIGHT IN REACH. WILL CPOC
[2018-05-03] VITALS: BP 116/44
[2018-05-03 04:00] VITALS: BP 138/48
[2018-05-03 08:07] LABS: BASOPHILS 0.6 % (0-2); EOSINOPHILS 1.8 % (0-7); HEMATOCRIT 26.8 % (42.0-54.0); HEMOGLOBIN 8.7 g/dL (13.5-17.5); LYMPHOCYTES 23.8 % (15-50); MCH 30.5 pg (26.0-34.0); MCHC 32.5 g/dL (31.0-37.0); MEAN PLATELET VOLUME 10.3 fL (7.4-10.4); MONOCYTES 7.7 % (2-11); NEUTROPHILS 65.1 % (40-80); PLATELET COUNT 237 10x3/uL (130-400); RBC 2.85 10x6/uL (4.20-6.10); RDW 13.2 % (11.5-14.5); WBC 10.7 10x3/uL (4.8-10.8)
[2018-05-03 08:20] VITALS: BP 106/35
[2018-05-03 08:33] LABS: CALCIUM 8.7 mg/dL (8.5-10.1); CARBON DIOXIDE 22.4 mmol/L (21.0-32.0); CREATININE - SERUM 9.5 mg/dL (0.6-1.3); POTASSIUM - SERUM 5.4 mmol/L (3.5-5.1)
[2018-05-03 08:35] LABS: PHOSPHOROUS 11.4 mg/dL (2.5-4.9)
[2018-05-03] MEDS ORDERED: PLAVIX75 MG PO (10:42)
[2018-05-03] MEDS ORDERED: ASPIRIN81 MG PO (10:43)
[2018-05-03] MEDS ORDERED: RENAGEL800 MG PO (10:45)
[2018-05-03] MEDS ORDERED: CHRONULAC30 ML PO (10:46)
[2018-05-03] MEDS ORDERED: NEPHRO-VITE RX1 TAB PO (10:46)
[2018-05-03] MEDS ORDERED: ULTRAM50 MG PO (10:49)
--- NOTE | 2018-05-03 11:07 | NUR ---
PT RETURNED TO FLOOR FROM DIALYSIS. BP 116/60. DENIES NEEDS AT THIS TIME, DENIES PAIN AT THIS TIME. WILL CONT TO FOLLOW PLAN OF CARE
[2018-05-03 13:01] VITALS: BP 127/61
--- NOTE | 2018-05-03 15:08 | NUR ---
PIV TO RIGHT FA REMOVED WITH CATHETER TIP INTACT. ASSITED PT TO FRONT OF HOSPITAL VIA WHEELCHAIR WITH ALL PERSONAL BELONGINGS. PT LEFT WITH FRIEND.
--- NOTE | 2018-05-06 06:22 | DS ---
PATIENT:NADIA WHITT :[birth year] MEDICAL RECORD: [id number] DISCHARGE SUMMARY ADMISSION DATE: 04/17/18 DISCHARGE DATE: 05/03/18 HISTORY OF PRESENT ILLNESS: Mr. Whitt is a 52-year-old white male with end-stage renal disease on the basis of diabetes, presented with an ischemic left foot and was admitted for the above. HOSPITAL COURSE: The patient was begun on antibiotic therapy and had arteriography of his lower extremities with angioplasty. He is a previous known smoker. His toes then demarcated with obvious necrotic involvement of all 5 toes at the transmetatarsal level, seen by orthopedics, taken to surgery where he had a transmetatarsal amputation. Postoperatively, he did well with improvement in pain, underwent acute dialysis and intermittent transfusion during this time and was stable. At the time of discharge, he was having some phantom pain, but the wound was healing nicely. DISCHARGE DIAGNOSES: 1. Ischemic left foot resulting in toe amputation. 2. Severe peripheral vascular disease. 3. Diabetes mellitus. 4. End-stage renal disease. 5. Chronic anemia. 6. Hypertension. PLAN: The patient will be discharged today. He will have home health and home PT. He is to keep the foot elevated. He will resume his outpatient dialysis at [facility] on Sunday, Sunday, and Sunday. He will continue his renal diet. DISCHARGE MEDICATIONS: Current discharge meds will be tramadol 50 mg p.r.n., he will resume Epogen in the dialysis unit, Lasix 80 on nondialysis days, lactulose and MiraLax p.r.n. as laxative, Renagel 3200 t.i.d. with meals, Neurontin 300 b.i.d., lisinopril 20 b.i.d., hydralazine 25 t.i.d., Coreg 6.25 b.i.d., Nephro-Niyah 1 daily, baby aspirin 1 daily, Plavix 25 mg daily. He will continue his sliding scale of insulin. We will see him weekly in dialysis. TRANSINT:[id number] Voice Confirmation ID: [id number] DOCUMENT ID: [id number] FIORDALIZA WEBB MD at 0622 CC: [id number] DICTATION DATE: 05/03/18802 ASPHALT PAVER: 05/03/18 0848 DIS IN 05/03/18 [facility] [address] [facility], [facility]
--- NOTE | 2018-05-08 09:31 | MORECARE ---
CASE MANAGEMENT DISCHARGE SUMMARY PATIENT: NADIA WHITT UNIT: [id number] ADM DATE: 04/17/18 AGE: 52 : [birth year] SEX: M ROOM/BED: D.2136 AUTHOR: BRIAN ELLSWORTH PHYSICIAN: REFERRING PHYSICIAN: TREASURE RIVERO MD DATE OF SERVICE: 05/08/18 Discharge Plan Patient Name: NADIA WHITT Facility: [facility]:[place] : 1965 Planned Disposition: Home with Home Health Anticipated Discharge Date: 05/03/18 Discharge Date: 05/03/2018 Expected LOS: 16 Initial Reviewer: [email or web address] Initial Review Date: 04/19/2018 Generated: 05/08/18 10:31 am Comments DCP- Discharge Planning Updated by [id number]: Jacek Leon on 05/02/18 11:[address] Patient Name: NADIA WHITT Encounter No: [id number] : 1965 Primary Insurance: MEDICAID [place] Anticipated DC Date: 05-03-2018 Planned Disposition: Home with Home Health External Planned Provider: [facility] DCP follow-up note: CM RECEIVED NURSING MESSAGE FOR DISCHARGE PLANNING FOR TOMORROW WITH HOME HEALTH. CM CALLED [facility], , SPOKE TO NICOLÁS WHO PLACED PT ON SCHEDULE FOR ADMIT ON 05-04-18. CM FAXED REFERRAL UPDATE TO [facility] AT [phone]. CM RECEIVED ORDER FOR WALKER, FAXED WALKER ORDER TO [facility] AT [phone]. [facility], , SPOKE TO JOSHUA WHO WILL HAVE WALKER DELIVERED TO PT'S ROOM TODAY FOR DISCHARGE HOME. FOR DISCHARGE, NOTIFY [facility] AT [phone], FAX DISCHARGE INFORMATION TO [facility] AT [phone]. Jacek Leon CASE MANAGEMENT DCP- Discharge Planning Updated by [id number]: Jacek Leon on 05/01/18 2:[address] Patient Name: NADIA WHITT Encounter No: [id number] : 1965 Primary Insurance: MEDICAID [place] Anticipated DC Date: 05-02-2018 Planned Disposition: Home with Home Health External Planned Provider: [facility] DCP follow-up note: CM RECEIVED ORDER FOR INPATIENT REHAB PRESCREENING. CM MET WITH PT IN ROOM, DISCUSSED AVAILABILITY OF HOME HEALTH, REHAB SERVICES AND MEDICAL EQUIPMENT. PT HAS MEDICAID INSURANCE WITH NO AVAILABLE DAYS FOR REHAB IN INPATIENT REHAB; MEDICAID WILL NOT COVER REHAB IN LONG-TERM FACILITY. PT IS NOT WILLING FOR RESTORATIVE CARE / CUSTODIAL CARE PLACEMENT IN [facility] HE WOULD LOSE HIS CHECK. PT WANTS TO GO HOME AND REPORTS THAT HE HAS AVAILABILITY OF FIRST FLOOR APARTMENT AND SUPPORTIVE EMPLOYER. PT REPORTS HE FEELS WELL ENOUGH TO GO HOME WITH HOME BASED THERAPY. PT WOULD RATHER HOME HEALTH THERAPY INSTEAD OF OUTPATIENT THERAPY. PT REPORTS HAVING FRIENDS TO ASSIST WITH DRESSING CHANGES AND OTHER NEEDS THEY ARISE AT HOME. PT REPORTS ABILITY TO GET TO HIS DIALYSIS UNIT NEEDED. CHOICE LISTING FOR HOME HEALTH PROVIDED, PT REPORTS ANY HOME HEALTH IS OK EXCEPT FOR [facility] PER HIS FRIEND. CHOICE SIGNED FOR ANY HOME HEALTH EXCEPT [facility]. CM RETURND TO PT'S ROOM LATER AFTER DETERMINING THAT PT WILL REQUIRE WALKER AT HOME FOR ASSISTANCE WITH AMBULATION. CM DISCUSSED COMPANY AVAILABIITY AND PROVIDED MEDICAL EQUIPMENT COMPANY LISTING. PT SIGNED CHOICE FOR ANY. PT REPORTS HAVING FRIENDS FOR TRANSPORT HOME AT DISCHARGE. CM CALLED [facility], , SPOKE TO NICOLÁS WHO ACCEPTED REFERRAL FOR ADMIT ON 05-03-18. CM FAXED REFERRAL TO [facility] AT [phone]. CM REQUIRES ORDER FOR [facility] NURSING AND PHYSICAL THERAPY TO ARRANGE WALKER AND COMPLETE HOME HEALTH ARRANGEMENTS WITH [facility]. Jacek Leon, CASE MANAGEMENT DCP- Discharge Planning Updated by [id number]: Dianna Bustos on 04/19/18 6:[address] Patient Name: NADIA WHITT Admission Status: ER Accout number: [id number] Admission Date: 04-17-2018 : 1965 Admission Diagnosis:OTHER DISORDER OF CIRCULATORY SYSTEM Attending: TREASURE RIVERO Current LOS: 2 Anticipated DC Date: Planned Disposition: Home Primary Insurance: MEDICAID [place] Discharge Planning Comments: CM met with patient at bedside. Patient states he lives at home alone and plans to return to his home upon discharge. Patient states he doesn't have any medical equipment or home health services. Patient does have hemodialysis @ [facility]. Patient denies any discharge needs at this time. CM will continue to follow and assist as needed with discharge planning / needs. Private Secretary: Dianna Bustos DCP- Discharge Planning Updated by [id number]: Dianna Bustos on 04/17/18 4:[address] CM will do intake discharge planning assessment at later time. Patient is currently drowsy from procedure. CM will continue to follow and assist as needed with discharge planning / needs DCPIA - Discharge Planning Initial Assessment Updated by [id number]: Dianna Bustos on 04/19/18 7:24 pm * Is the patient Alert and Oriented? Yes * How many steps to enter\exit or inside your home? 18 * PCP Rachid * [facility] * Preadmission Environment Home Alone * ADLs Independent * Equipment None * List name and contact numbers for known caregivers / representatives who currently or will assist patient after discharge: Shola Whitt - [facility]- [phone] * Verbal permission to speak to the caregivers and representatives has been obtained from the patient. N/A * Community resources currently utilized None * Please name any agencies selected above. [facility] - hemodialysis - MWF - 10-2:30 * Additional services required to return to the preadmission environment? No * Can the patient safely return to the preadmission environment? Yes * Has this patient been hospitalized within the prior 30 days at any hospital? No Coverage Notice Reviewer: [id number] Leon Notice Issued Date-Time: 05/01/2018 13:55 Notice Type: Patient Choice Letter Notice Delivered To: Patient Relationship to Patient: Collection Manager Name: Delivery Method: HAND - Hand Delivered Ellyn Days: Prior Verbal Notification: Recipient Understood Notice: Yes Recipient Signature: Yes Med Rec Note Co-signed by Attending: Coverage Notice Comment: ANY HOME HEALTH EXCEPT [facility] Reviewer: [id number] Tiffany Leon Notice Issued Date-Time: 05/01/2018 15:30 Notice Type: Patient Choice Letter Notice Delivered To: Patient Relationship to Patient: Collection Manager Name: Delivery Method: HAND - Hand Delivered Ellyn Days: Prior Verbal Notification: Recipient Understood Notice: Yes Recipient Signature: Yes Med Rec Note Co-signed by Attending: Coverage Notice Comment: ANY MEDICAL EQUIPMENT COMPANY Last DP export: 05/02/18 11:23 a Patient Name: NADIA WHITT Page 28499 at 0931 All edits/amendments must be made on the electronic document DICTATION DATE: 05/08/18930 VOICE WRITING REPORTER: ANJU 05/08/18930 RPT#: [id number] DC DATE:05/03/18 STATUS: DIS IN [facility] [address] [place] [address] END OF REPORT
== END 2018-05-03 15:11 | disposition home health service (06) | DRG 239 ==
LOC: D.ER 07:07 → D.ICU 10:47 → D.EDHOLD 10:47 → D.M2 10:47 → D.ICU 14:33 → D.M2 04-20 18:22
PROVIDERS: Emergency Medicine; Internal Medicine Nephrology; Orthopaedic Surgery; ADMIT Internal Medicine Nephrology
PROC: 047N3DZ Dilation of Left Popliteal Artery with Intraluminal Device, Percutaneous Approach (ICD-10-PCS; 2018-04-17)
PROC: 047Q3ZZ Dilation of Left Anterior Tibial Artery, Percutaneous Approach (ICD-10-PCS; 2018-04-17)
PROC: 3E053PZ Introduction of Platelet Inhibitor into Peripheral Artery, Percutaneous Approach (ICD-10-PCS; 2018-04-17)
PROC: 0Y6M0ZB Detachment at Right Foot, Partial 2nd Ray, Open Approach (ICD-10-PCS; 2018-04-26)
PROC: 0Y6M0ZC Detachment at Right Foot, Partial 3rd Ray, Open Approach (ICD-10-PCS; 2018-04-26)
PROC: 0Y6M0ZD Detachment at Right Foot, Partial 4th Ray, Open Approach (ICD-10-PCS; 2018-04-26)
PROC: 0Y6M0ZF Detachment at Right Foot, Partial 5th Ray, Open Approach (ICD-10-PCS; 2018-04-26)
PROC: 0Y6M0Z9 Detachment at Right Foot, Partial 1st Ray, Open Approach (ICD-10-PCS; principal; 2018-04-26 08:30)
DX: E11.51 Type 2 diabetes mellitus with diabetic peripheral angiopathy without gangrene (principal); N18.6 End stage renal disease; N17.9 Acute kidney failure, unspecified; E11.52 Type 2 diabetes mellitus with diabetic peripheral angiopathy with gangrene; I96 Gangrene, not elsewhere classified; I12.0 Hypertensive chronic kidney disease with stage 5 chronic kidney disease or end stage renal disease; E11.22 Type 2 diabetes mellitus with diabetic chronic kidney disease; Z99.2 Dependence on renal dialysis; I51.7 Cardiomegaly; B19.20 Unspecified viral hepatitis C without hepatic coma; D64.9 Anemia, unspecified

== ENCOUNTER 2018-06-04 16:34 | Inpatient (IN) | payer MEDICAID ==
[~2018-06-04] VITALS: Ht 177.8 cm; Wt 113.4 kg
[~2018-06-04 16:34] MED LIST changes: +ASPIRIN81 MG PO; +CHRONULAC30 ML PO; +PLAVIX75 MG PO; +RENAGEL800 MG PO; +ULTRAM50 MG PO
[2018-06-05] MEDS ORDERED: HYDROCODON-ACE1 EAC7 PO (15:50)
[2018-06-05 16:35] LABS: BASOPHILS 0.7 % (0-2); EOSINOPHILS 1.8 % (0-7); HEMATOCRIT 30.8 % (42.0-54.0); IMMATURE GRANULOCYTES 0.9 % (0-5); LYMPHOCYTES 21.2 % (15-50); MCH 32.2 pg (26.0-34.0); MCHC 32.5 g/dL (31.0-37.0); MEAN PLATELET VOLUME 10.3 fL (7.4-10.4); MONOCYTES 5.7 % (2-11); NEUTROPHILS 69.7 % (40-80); RBC 3.11 10x6/uL (4.20-6.10); RDW 15.6 % (11.5-14.5); WBC 4.6 10x3/uL (4.8-10.8)
[2018-06-05 16:41] LABS: PLATELET COUNT 127 10x3/uL (130-400)
[2018-06-05 16:43] LABS: ANION GAP 14.5 mmol/L (8-16); CALCIUM 9.6 mg/dL (8.5-10.1); CARBON DIOXIDE 28.9 mmol/L (21.0-32.0); CREATININE - SERUM 4.9 mg/dL (0.6-1.3); POTASSIUM - SERUM 4.4 mmol/L (3.5-5.1)
[2018-06-05 17:52] LABS: ALBUMIN 3.3 g/dL (3.4-5.0); BILIRUBIN - TOTAL 0.42 mg/dL (0.2-1.3)
[2018-06-06] VITALS (11 sets, daily range): BP systolic 95–130; BP diastolic 55–69; BMI 35.9
[2018-06-06 12:27] LABS: HEMATOCRIT 21.6 % (42.0-54.0)
--- NOTE | 2018-06-06 15:01 | NUR ---
RECEIVED PT [facility] RECOVERY NURSE AT 1345, PT IS ASLEEP, EASILY AWAKENED TO ANSWER QUESTIONS, PT HAS FREQUENT VITALS STARTED, NO S/S OF DISTRESS, NO PAIN AT THIS TIME, BED IN LOW POSITION, CL IN REACH. CONTINUE WITH PLAN OF CARE
[2018-06-06 18:10] LABS: BASOPHILS 0.7 % (0-2); EOSINOPHILS 1.7 % (0-7); HEMATOCRIT 25.9 % (42.0-54.0); HEMOGLOBIN 8.4 g/dL (13.5-17.5); IMMATURE GRANULOCYTES 0.7 % (0-5); LYMPHOCYTES 25.5 % (15-50); MCH 31.5 pg (26.0-34.0); MCHC 32.4 g/dL (31.0-37.0); MEAN PLATELET VOLUME 11.1 fL (7.4-10.4); MONOCYTES 8.2 % (2-11); NEUTROPHILS 63.2 % (40-80); PLATELET COUNT 110 10x3/uL (130-400); RBC 2.67 10x6/uL (4.20-6.10); RDW 15.7 % (11.5-14.5); WBC 5.3 10x3/uL (4.8-10.8)
--- NOTE | 2018-06-06 19:00 | NUR ---
REPORT RECEIVED AND CARE OF PT ASSUMED. PT LYING IN LOW ALBRIGHT'S POSITION VISITING WITH FAMILY MEMBERS. IV IN RIGHT WRIST PATENT WITH NS INFUSING AT 10 ML / HR. DRESSING ON RIGHT STUMP INTACT WITH NO ACTIVE BLEEDING. WILL MONITOR FOR NEEDS.
--- NOTE | 2018-06-06 20:04 | NUR ---
HS MEDICATIONS GIVEN. EDUCATION GIVEN ON PAIN MEDICATIONS AVAILABLE....DENIES PAIN AT THIS TIME.
--- NOTE | 2018-06-06 22:41 | NUR ---
PT RESTING IN LOW FOWELR'S POSITION WITH EYES CLOSED. DRESSING ON RIGHT STUMP INTACT. IV IN RIGHT WRIST PATENT WITH NS INFUSING AT 10 ML /HR. SCD IN PLACE ON LLE. WILL CONTINUE TO MONITOR FOR NEEDS.
[2018-06-07] VITALS (7 sets, daily range): BP systolic 113–216; BP diastolic 42–90; Ht 177.8 cm; Wt 113.4 kg
--- NOTE | 2018-06-07 00:29 | NUR ---
PT AWOKE WITH SEVERE PAIN IN RIGHT STUMP. GAVE MORPHINE 2 MG IVP PER PRN ORDER. WILL MONITOR FOR EFFECTIVENESS. SIE RAILS UP X2 FOR SAFETY.
[2018-06-07 05:03] LABS: BASOPHILS 0.5 % (0-2); EOSINOPHILS 2.1 % (0-7); HEMATOCRIT 25.8 % (42.0-54.0); HEMOGLOBIN 8.5 g/dL (13.5-17.5); IMMATURE GRANULOCYTES 0.7 % (0-5); MCHC 32.9 g/dL (31.0-37.0); MEAN PLATELET VOLUME 10.9 fL (7.4-10.4); MONOCYTES 8.5 % (2-11); NEUTROPHILS 67.2 % (40-80); PLATELET COUNT 114 10x3/uL (130-400); RBC 2.66 10x6/uL (4.20-6.10); RDW 16.1 % (11.5-14.5); WBC 5.8 10x3/uL (4.8-10.8)
[2018-06-07 05:26] LABS: CALCIUM 7.7 mg/dL (8.5-10.1)
[2018-06-07 05:53] LABS: ANION GAP 17.1 mmol/L (8-16); CARBON DIOXIDE 21.2 mmol/L (21.0-32.0); CREATININE - SERUM 7.1 mg/dL (0.6-1.3); POTASSIUM - SERUM 5.3 mmol/L (3.5-5.1)
--- NOTE | 2018-06-07 07:54 | NUR ---
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 CPOC
--- NOTE | 2018-06-07 10:40 | NUR ---
CALLED FOR PATIENT TO COME TO DIALYSIS SUITE, NURSE REPORTS PATIENT IS REFUSING AND ASKED ME TO COME SPEAK WITH HIM. I SPOKE WITH THE PATIENT, EDUCATED HIM, AND HE STILL REFUSED DUE TO HIS PAIN LEVEL AND BEING SCARED HE WAS DEHYDRATED ALREADY. NOTIFIED YASMEEN PORRAS APN, ORDERED TO HOLD TREATMENT TODAY AND PUT HIM ON SCHEDULE FOR TREATMENT TOMORROW.
--- NOTE | 2018-06-07 16:05 | NUR ---
I have reviewed this patient and I concur with the Shift Assessment completed by the Licensed Practical Nurse today this shift.
--- NOTE | 2018-06-07 19:00 | NUR ---
REPORT RECEIVED AND CARE OF PT ASSUMED. PT LYING IN SUPINE POSITION WITH RIGHT STUMP ELEVATED. IV IN RIGHT WRIST PATENT WITH NS INFUSING AT 10 ML / HR. WILL MONITOR FOR NEEDS.
--- NOTE | 2018-06-07 20:02 | NUR ---
GAVE NORCO PO PER PRN ORDER FOR C/O PAIN. EMPTIED URINAL CONTAINING 200 ML OF ADE URINE. WILL CONTINUE TO MONITOR FOR NEEDS.
--- NOTE | 2018-06-08 00:02 | NUR ---
BLOOD PRESSURE ELEVATED AT MIDNIGHT CHECK: 212/77 . PAGED HYDRAULIC ASSEMBLER PHYSICIAN...RECEIVED ORDER FROM CHRIS PORRAS APN FOR CLONIDINE 0.2 MG PO Q4HR PRN SBP >170. GAVE FIRST DOSE NOW. WILL RE-CHECK AT 3AM.
[2018-06-08 04:00] VITALS: BP 144/50
[2018-06-08 05:32] LABS: ANION GAP 20.7 mmol/L (8-16); CALCIUM 8.1 mg/dL (8.5-10.1); CARBON DIOXIDE 18.2 mmol/L (21.0-32.0); CREATININE - SERUM 8.7 mg/dL (0.6-1.3); POTASSIUM - SERUM 5.9 mmol/L (3.5-5.1)
--- NOTE | 2018-06-08 07:17 | NUR ---
EYES CLOSED, EASILY AROUSED BY VOICE EVEN UNLABORED BREATHING, IV TO RIGHT WRIST, PATENT, INFUSING AT KVO, SCD TO LEFT LEG, DRESSING TO RIGHT KNEE CLEAN, DRY, AND INACT, SLIGHT EDEMA TO UPPER BILATERAL EXTREMITIES, ON ROOM AIR, DENIES ANY NEEDS OR DISCOMFORTS, BED LOWERED AND LOCKED, CALL LIGHT WITHIN REACH. CPOC
[2018-06-08 07:56] VITALS: BP 177/60
--- NOTE | 2018-06-08 08:45 | NUR ---
DISCONTINUED IV TO RIGHT WRIST, INFILITRATED, LEAKING, STATES "HURTS AND MCDANIELS" IV CATHETER TIP INTACT, COVERED SITE WITH GAUZE AND TAPE, DENIES ANY OTHER NEEDS OR DISCOMFORTS, BED LOWERED AND LOCKED, CALL LIGHT WITHIN REACH. CPOC
[2018-06-08 09:44] LABS: BASOPHILS 0.8 % (0-2); EOSINOPHILS 2.8 % (0-7); HEMATOCRIT 23.5 % (42.0-54.0); HEMOGLOBIN 7.7 g/dL (13.5-17.5); IMMATURE GRANULOCYTES 1.7 % (0-5); LYMPHOCYTES 28.3 % (15-50); MCH 31.7 pg (26.0-34.0); MCHC 32.8 g/dL (31.0-37.0); MCV 96.7 fL (80.0-100.0); MEAN PLATELET VOLUME 10.6 fL (7.4-10.4); MONOCYTES 11.8 % (2-11); NEUTROPHILS 54.6 % (40-80); PLATELET COUNT 100 10x3/uL (130-400); RBC 2.43 10x6/uL (4.20-6.10); RDW 16.1 % (11.5-14.5); WBC 6.5 10x3/uL (4.8-10.8)
[2018-06-08 12:49] VITALS: BP 138/75
[2018-06-08 16:04] LABS: % SATURATION 26 % (15-55); IRON 57 ug/dl (35-150); TOTAL IRON BIND CAPACITY 216 ug/dl (260-445); UNSAT IRON BIND CAPACITY 159 ug/dl (150-375)
--- NOTE | 2018-06-08 16:31 | NUR ---
1 UNIT PRBC TRANSFUSION INITIATED. INFUSING THROUGH PT LEFT FISTUALA WITH DIALYSIS NURSE JULIET MARTI LPN AT BEDSIDE ASSISTING WITH INFUSION. VSS. SEE TRANSFUSION CARD. WILL CONT TO MONITOR.
--- NOTE | 2018-06-08 16:38 | NUR ---
CURRENTLY RECIEVING DIAYLSIS IN ROOM, ONE UNIT OF PRBC BEING ADMININSTERED WELL VIA DIAYLYSIS MACHINE, BLOOD VERFIED BY SANDRA BARRIENTOS, AND TWO CROSS CHECKS, JULIET MARTI LPN AND MYSELF . DENIES ANY CURRENT NEEDS OR DISCOMFORTS, BED LOWERED AND LOCKED, CALL LIGHT WITHIN REACH. CPOC
--- NOTE | 2018-06-08 17:00 | NUR ---
1 UNIT OF PRBC TRANSFUSION IS COMPLETE. DIALYSIS NURSE JULIET MARTI LPN AT BEDSIDE DURING TRANSFUSION. VSS. SEE TRANSFUSION CARD. PT IS CONTINUING DIALYSIS TREATMENT AT THIS TIME.
--- NOTE | 2018-06-08 18:05 | NUR ---
I have reviewed this patient and I concur with the Shift Assessment completed by the Licensed Practical Nurse today this shift.
--- NOTE | 2018-06-08 18:43 | NUR ---
awake and alert, recieved dialysis today, no iv access at current time, on room air, dressing to knee clean dry and intact, scd to left leg, denies any current needs or discomforts, bed lowered and locked, call light within reach. cpoc
--- NOTE | 2018-06-08 19:00 | NUR ---
REPORT RECEIVED AND CARE OF PT ASSUMED. PT LYING IN LOW ALBRIGHT'S POSITION WATCHING TV. NO IV SITED AT THIS TIME. DRESSING ON RIGHT STUMP CLEAN AND DRY. WILL MONITOR FOR NEEDS.
[2018-06-08 20:02] VITALS: BP 158/63
--- NOTE | 2018-06-08 20:51 | NUR ---
HS MEDICATIONS GIVEN. FSBS 277 THIS CHECK REQUIRING COVERAGE WITH 10 UNITS OF INSULIN PER SLIDING SCALE. WILL CONTINUE TO MONITOR FOR NEEDS.
[2018-06-09 00:49] VITALS: BP 168/78
--- NOTE | 2018-06-09 01:19 | NUR ---
GAVE NORCO PER REQUEST FOR INCISIONAL PAIN. WILL MONITOR FOR EFFECTIVENESS.
[2018-06-09 05:27] LABS: BASOPHILS 0.4 % (0-2); EOSINOPHILS 2.4 % (0-7); HEMATOCRIT 25.1 % (42.0-54.0); HEMOGLOBIN 8.2 g/dL (13.5-17.5); IMMATURE GRANULOCYTES 0.6 % (0-5); MCH 31.4 pg (26.0-34.0); MCHC 32.7 g/dL (31.0-37.0); MCV 96.2 fL (80.0-100.0); MEAN PLATELET VOLUME 10.7 fL (7.4-10.4); MONOCYTES 12.6 % (2-11); PLATELET COUNT 102 10x3/uL (130-400); RBC 2.61 10x6/uL (4.20-6.10); RDW 17.2 % (11.5-14.5); WBC 4.9 10x3/uL (4.8-10.8)
[2018-06-09 06:05] LABS: ANION GAP 17.1 mmol/L (8-16); CALCIUM 8.5 mg/dL (8.5-10.1); CARBON DIOXIDE 23.6 mmol/L (21.0-32.0); CREATININE - SERUM 6.6 mg/dL (0.6-1.3); POTASSIUM - SERUM 4.7 mmol/L (3.5-5.1)
--- NOTE | 2018-06-09 08:28 | NUR ---
AWAKE AND ALERT, ORIENTED X4, ON ROOM AIR, DRESSING TO RIGHT BKA CLEAN DRY AND INTACT, NO IV ACCESS, FISTULA TO LEFT ARM DRESSING C/D/I, DENIES ANY CURRENT NEEDS OR DISCOMFORTS, BED LOWERED AND LOCKED, CALL LIGHT WITHIN REACH. CPOC
[2018-06-09 08:38] VITALS: BP 176/82
[2018-06-09 12:25] VITALS: BP 167/72
[2018-06-09 17:10] VITALS: BP 143/51
--- NOTE | 2018-06-09 18:50 | NUR ---
I have reviewed this patient and I concur with the Shift Assessment completed by the Licensed Practical Nurse today this shift.
--- NOTE | 2018-06-09 19:00 | NUR ---
REPORT RECEIVED AND CARE OF PT ASSUMED. PT RESTING IN SUPINE POSITION WITH EYES CLOSED AND EASY RESPIRATIONS. DRESSING ON RIGHT LOWER LEG STUMP CLEAN AND DRY AND ELEVATED ON PILLOW. LEFT ARM RESERVED DUE TO LEFT UPPER ARM FISTULA. WILL MONITOR FOR NEEDS.
[2018-06-09 19:55] VITALS: BP 148/66
--- NOTE | 2018-06-09 20:49 | NUR ---
HS MEDICATIONS GIVEN TO INCLUDE NORCO PER PRN ORDER FOR PAIN. WILL MONITOR FOR EFFECTIVENESS.
--- NOTE | 2018-06-09 23:16 | NUR ---
GAVE CLONIDINE 0.2 MG PO FOR ELEVATED BP OF 177/71 PER PRN ORDERS TO GIVE IF SBP >170. WILL MONITOR FOR EFFECTIVENESS.
[2018-06-10 00:01] VITALS: BP 177/71
[2018-06-10 05:11] VITALS: BP 151/65
[2018-06-10 05:18] LABS: HEMATOCRIT 24.9 % (42.0-54.0); HEMOGLOBIN 8.3 g/dL (13.5-17.5); MCH 31.6 pg (26.0-34.0); MCHC 33.3 g/dL (31.0-37.0); MCV 94.7 fL (80.0-100.0); MEAN PLATELET VOLUME 11.6 fL (7.4-10.4); PLATELET COUNT 108 10x3/uL (130-400); RBC 2.63 10x6/uL (4.20-6.10); RDW 16.9 % (11.5-14.5); WBC 5.8 10x3/uL (4.8-10.8)
[2018-06-10 07:35] LABS: % SATURATION 28 % (15-55); IRON 65 ug/dl (35-150); TOTAL IRON BIND CAPACITY 229 ug/dl (260-445); UNSAT IRON BIND CAPACITY 164 ug/dl (150-375)
--- NOTE | 2018-06-10 08:00 | NUR ---
LYING IN BED,WITHOUT DISTRESS.FAMILY AT BEDSIDE
[2018-06-10 08:03] LABS: ANION GAP 17.8 mmol/L (8-16); CALCIUM 8.3 mg/dL (8.5-10.1); CARBON DIOXIDE 22.2 mmol/L (21.0-32.0); CREATININE - SERUM 7.5 mg/dL (0.6-1.3)
[2018-06-10 08:44] VITALS: BP 121/97
[2018-06-10 08:44] LABS: LYMPHOCYTES 34 % (15-50); MONOCYTES 10 % (2-11); NEUTROPHILS 53 % (40-80); PLATELET ESTIMATE DECREASED; ROULEAUX OCC; SMUDGE CELLS OCC
--- NOTE | 2018-06-10 10:07 | NUR ---
Rehab Note- Acute Inpatient Rehab prescreen order receieved. The patient has Medicaid and does not have acute inpatient rehab benefits. Thank you for this referral! Palmira Langford RN CLinical Liaison, [facility] Rehab
[2018-06-10 13:15] VITALS: BP 134/64
--- NOTE | 2018-06-10 14:47 | NUR ---
NUTRITION F/U PT TOLERATING RENAL ADA DIET WITH GOOD INTAKE RECENT MEALS. CURRENTLY OOR. WILL CONTINUE TO PROVIDE DIET, MONITOR PO INTAKE. RD FOLLOWING
--- NOTE | 2018-06-10 20:00 | NUR ---
ASSESSMENT PER FLOWSHEET. KENYA WRAP TO RT STUMP C/D/I. ELEVATED ON PILLOW. FISTULA TO LEFT UPPER ARM RESERVE LEFT ARM. SCD TO LEFT LEG.
--- NOTE | 2018-06-10 20:45 | NUR ---
FOUND PATIENT IN BR HE HAD HOPPED TO BR ON LEFT LEG HOLDING TO OBJECTS. INSTRUCTED PATENT TO USE CALL LIGHT FOR HELP TO BATHROOM AND A WALKER WOULD BE PROVIDED FOR HIM. ASSISTED BACK TO BED PER WALKER AND ASSISTANCE OF STAGE ELECTRICIAN. SR UP X2 CALL LIGHT WITHIN REACH BED ALARM TURNED ON.
--- NOTE | 2018-06-10 20:55 | MORECARE ---
CASE MANAGEMENT DISCHARGE SUMMARY PATIENT: NADIA WHITT UNIT: [id number] ADM DATE: 06/06/18 AGE: 52 : 69 SEX: M ROOM/BED: D.2219 AUTHOR: BRIAN ELLSWORTH PHYSICIAN: REFERRING PHYSICIAN: JOSY GONZALEZ MD DATE OF SERVICE: 06/10/18 Discharge Plan Patient Name: NADIA WHITT [facility] : 1965 Planned Disposition: Home with Home Health Anticipated Discharge Date: Discharge Date: Expected LOS: Initial Reviewer: [email or web address] Initial Review Date: 06/06/2018 Generated: 06/10/18 9:55 pm DCPIA - Discharge Planning Initial Assessment Updated by [email or web address]: Ariela Paul on 06/10/18 8:52 pm * Is the patient Alert and Oriented? Yes * How many steps to enter\exit or inside your home? 12 * PCP TRACEY * Pharmacy [facility] * Preadmission Environment Home Alone * ADLs Independent * Equipment Glucometer * List name and contact numbers for known caregivers / representatives who currently or will assist patient after discharge: LETICIA BOWEN (FATHER) [phone] * Verbal permission to speak to the caregivers and representatives has been obtained from the patient. N/A * Community resources currently utilized None * Additional services required to return to the preadmission environment? Yes * Can the patient safely return to the preadmission environment? Yes * Has this patient been hospitalized within the prior 30 days at any hospital? No Patient Name: NADIA WHITT Page 82478 at 205 All edits/amendments must be made on the electronic document DICTATION DATE: 06/10/182053 BRANCH LOGISTICS SUPERVISOR: ANJU 06/10/182053 RPT#: [id number] DC DATE: STATUS: ADM IN [facility] [address] [place] [address] END OF REPORT
--- NOTE | 2018-06-10 21:01 | MORECARE ---
CASE MANAGEMENT DISCHARGE SUMMARY PATIENT: NADIA WHITT UNIT: [id number] ADM DATE: 06/06/18 AGE: 52 : 69 SEX: M ROOM/BED: D.2219 AUTHOR: BRIAN ELLSWORTH PHYSICIAN: REFERRING PHYSICIAN: JOSY GONZALEZ MD DATE OF SERVICE: 06/10/18 Discharge Plan Patient Name: NADIA WHITT Facility: [facility]:[place] : 1965 Planned Disposition: Home with Home Health Anticipated Discharge Date: Discharge Date: Expected LOS: Initial Reviewer: [email or web address] Initial Review Date: 06/06/2018 Generated: 06/10/18 10:01 pm Comments DCP- Discharge Planning Updated by [email or web address]: Ariela Paul on 06/10/18 7:[address] Patient Name: NADIA WHITT Admission Status: Elective Accout number: [id number] Admission Date: 06-06-2018 : 1965 Admission Diagnosis:OTH COMPLICATIONS OF PROCEDURES, NEC, INIT Attending: JOSY GONZALEZ Current LOS: 4 Anticipated DC Date: Planned Disposition: Home with Home Health Primary Insurance: MEDICAID [place] Discharge Planning Comments: CM met with patient today to assess discharge planning needs. Patient stated that he lives in the second floor apartment where he plans to return when he is discharged. His neighbor will be the one to drive him home. He has been using his neighbor's electric wheelchair. He stated that he can get to his apartment. He will need a wheelchair when he is discharged. He will also need home health. JINA with [facility] and [facility], signed and placed in chart. CM will send referral to [facility] and the order to Lety at [facility]. CM will continue to follow and assist with dc planning Shift Engineer: Ariela Paul DCPIA - Discharge Planning Initial Assessment Updated by [email or web address]: Ariela Paul on 06/10/18 8:52 pm * Is the patient Alert and Oriented? Yes * How many steps to enter\exit or inside your home? 12 * PCP TRACEY * Pharm[facility] * Preadmission Environment Home Alone * ADLs Independent * Equipment Glucometer * List name and contact numbers for known caregivers / representatives who currently or will assist patient after discharge: LETICIA BOWEN (FATHER) [phone] * Verbal permission to speak to the caregivers and representatives has been obtained from the patient. N/A * Community resources currently utilized None * Additional services required to return to the preadmission environment? Yes * Can the patient safely return to the preadmission environment? Yes * Has this patient been hospitalized within the prior 30 days at any hospital? No External Providers [facility] Next Contact Date: Service Request Date: Service Type: Resolution: Reviewer: Comments: External Provider: [facility] Next Contact Date: Service Request Date: Service Type: Resolution: Reviewer: Comments: Last DP export: 06/10/18 7:55 pm Patient Name: NADIA WHITT Page 48558 at 210 All edits/amendments must be made on the electronic document DICTATION DATE: 06/10/182100 DICE MAKER: ANJU 06/10/182100 RPT#: [id number] DC DATE: STATUS: ADM IN [facility] [address] [place] [address] END OF REPORT
[2018-06-10 21:35] VITALS: BP 127/73
--- NOTE | 2018-06-10 22:00 | NUR ---
MEDS GIVEN PER MAY. MLOV=[id number]. REFUSED S/S INSULIN.
--- NOTE | 2018-06-11 | NUR ---
AWAKE WATCHING TV. DENIES NEEDS.
[2018-06-11 01:14] VITALS: BP 118/65
--- NOTE | 2018-06-11 02:05 | NUR ---
EYES CLOSED RESPIRATIONS WITH EASE AND UNLABORED.
[2018-06-11 04:47] VITALS: BP 209/69
--- NOTE | 2018-06-11 04:57 | NUR ---
AS=111/69 CATAPRES 0.2MG PO GIVEN FOR ELEVATED B/P
[2018-06-11 05:24] LABS: BASOPHILS 0.2 % (0-2); EOSINOPHILS 2.9 % (0-7); HEMATOCRIT 27.2 % (42.0-54.0); IMMATURE GRANULOCYTES 0.4 % (0-5); MCH 31.6 pg (26.0-34.0); MCHC 33.1 g/dL (31.0-37.0); MCV 95.4 fL (80.0-100.0); MONOCYTES 8.1 % (2-11); NEUTROPHILS 62.4 % (40-80); RBC 2.85 10x6/uL (4.20-6.10); RDW 17.1 % (11.5-14.5); WBC 4.5 10x3/uL (4.8-10.8)
[2018-06-11 05:30] LABS: PLATELET COUNT 149 10x3/uL (130-400)
[2018-06-11 05:46] LABS: ANION GAP 18.1 mmol/L (8-16); CALCIUM 8.5 mg/dL (8.5-10.1); CARBON DIOXIDE 25.6 mmol/L (21.0-32.0); PHOSPHOROUS 6.1 mg/dL (2.5-4.9); POTASSIUM - SERUM 4.7 mmol/L (3.5-5.1)
[2018-06-11 05:57] LABS: CREATININE - SERUM 5.6 mg/dL (0.6-1.3)
--- NOTE | 2018-06-11 06:00 | NUR ---
C/O IINCISIONAL PAIN RATES LEVEL#6 NORCO 7.5MG TAB ONE PO GIVEN FOR PAIN CONTROL.
--- NOTE | 2018-06-11 08:10 | NUR ---
SPOKE TO RUSSEL WITH [facility] IN REGARDS TO PT PAIN MEDICATION BEING CHANGED TO Q6, PER RUSSEL INCREASE DOSAGE TO 10MG Q6. CONTINUE WITH PLAN OF CARE
[2018-06-11 08:22] VITALS: BP 159/72
--- NOTE | 2018-06-11 09:16 | NUR ---
PT SITTING UP IN BED EATING BREAKFAST, STUDENT NURSE AT BEDSIDE, NO S/S OF DISTRESS, EXPLAINED CHANGE IN PAIN MEDICATION AND TIMES PT CAN HAVE IT. ALL QUESTIONS ANSWERED, NO OTHER NEEDS VOICED, CONTINUE WITH PLAN OF CARE
--- NOTE | 2018-06-11 09:57 | MORECARE ---
CASE MANAGEMENT DISCHARGE SUMMARY PATIENT: NADIA WHITT UNIT: [id number] ADM DATE: 06/06/18 AGE: 52 : 69 SEX: M ROOM/BED: D.2219 AUTHOR: BRIAN ELLSWORTH PHYSICIAN: REFERRING PHYSICIAN: JOSY GONZALEZ MD DATE OF SERVICE: 06/11/18 Discharge Plan Patient Name: NADIA WHITT Facility: [facility]:[place] : 1965 Planned Disposition: Home with Home Health Anticipated Discharge Date: Discharge Date: Expected LOS: Initial Reviewer: [email or web address] Initial Review Date: 06/06/2018 Generated: 06/11/18 10:57 am Comments DCP- Discharge Planning Updated by [email or web address]: Ariela Paul on 06/11/18 8:[address] SPOKE WITH TATA AT [facility] ABOUT WHEELCHAIR ORDER SHE HAD NOT RECEIVED THE FAX THAT I SENT LAST NIGHT WILL RESEND ORDER AND CLINICAL THE PATIENT IS MEDICAID AND WILL NEED PRIOR AUTH TO GET APPROVED. CM WILL CONTINUE TO FOLLOW AND ASSIST NEEDED DCP- Discharge Planning Updated by [email or web address]: Ariela Paul on 06/10/18 7:[address] Patient Name: NADIA WHITT Admission Status: Elective Accout number: [id number] Admission Date: 06-06-2018 : 1965 Admission Diagnosis:OTH COMPLICATIONS OF PROCEDURES, NEC, INIT Attending: JOSY GONZALEZ Current LOS: 4 Anticipated DC Date: Planned Disposition: Home with Home Health Primary Insurance: MEDICAID [place] Discharge Planning Comments: CM met with patient today to assess discharge planning needs. Patient stated that he lives in the second floor apartment where he plans to return when he is discharged. His neighbor will be the one to drive him home. He has been using his neighbor's electric wheelchair. He stated that he can get to his apartment. He will need a wheelchair when he is discharged. He will also need home health. JINA with [facility] and [facility], signed and placed in chart. CM will send referral to [facility] and the order to Tata at [facility]. CM will continue to follow and assist with dc planning Poll Watcher: Ariela Paul DCPIA - Discharge Planning Initial Assessment Updated by [email or web address]: Ariela Paul on 06/10/18 8:52 pm * Is the patient Alert and Oriented? Yes * How many steps to enter\exit or inside your home? 12 * PCP TRACEY * Pharmacy [facility] [address] * Preadmission Environment Home Alone * ADLs Independent * Equipment Glucometer * List name and contact numbers for known caregivers / representatives who currently or will assist patient after discharge: LETICIA BOWEN (FATHER) [phone] * Verbal permission to speak to the caregivers and representatives has been obtained from the patient. N/A * Community resources currently utilized None * Additional services required to return to the preadmission environment? Yes * Can the patient safely return to the preadmission environment? Yes * Has this patient been hospitalized within the prior 30 days at any hospital? No Last DP export: 06/10/18 8:01 pm Patient Name: NADIA WHITT Page 47262 at 0957 All edits/amendments must be made on the electronic document DICTATION DATE: 06/11/18956 MITTEN SEWER: ANJU 06/11/18956 RPT#: [id number] DC DATE: STATUS: ADM IN [facility] [address] [place] [address] END OF REPORT
[2018-06-11 10:17] LABS: FOLATE (FOLIC ACID) - SERUM 6.7 ng/mL (>3.0)
[2018-06-11 12:50] VITALS: BP 152/125
--- NOTE | 2018-06-11 13:48 | NUR ---
PATIENT HAS NO IV ACCESS. ADAMANTLY REFUSED IV MEDS AT THIS TIME FOR BP. WILL DISCUSS WITH MD SALAS CHANGE TO PO.
--- NOTE | 2018-06-11 13:52 | NUR ---
MANUAL BP CHECK IS 160/85. WILL CONTINUE TO MONITOR.
--- NOTE | 2018-06-11 13:54 | NUR ---
PT BLOOD PRESSURE WAS TOLD TO BE 152/125, SANDRA ESCAMILLA RECHECKED MANUALLY AND RECEIVED READING OF 162/85. NO APRESALINE GIVEN. CONTINUE WITH PLAN OF CARE
--- NOTE | 2018-06-11 15:48 | MORECARE ---
CASE MANAGEMENT DISCHARGE SUMMARY PATIENT: NADIA WHITT UNIT: [id number] ADM DATE: 06/06/18 AGE: 52 : 69 SEX: M ROOM/BED: D.2219 AUTHOR: BRIAN ELLSWORTH PHYSICIAN: REFERRING PHYSICIAN: JOSY GONZALEZ MD DATE OF SERVICE: 06/11/18 Discharge Plan Patient Name: NADIA WHITT Facility: [facility]:[place] : 1965 Planned Disposition: Home with Home Health Anticipated Discharge Date: Discharge Date: Expected LOS: Initial Reviewer: [email or web address] Initial Review Date: 06/06/2018 Generated: 06/11/18 4:47 pm Comments DCP- Discharge Planning Updated by [email or web address]: Ariela Paul on 06/11/18 2:[address] TATA FROM [facility] PATIENT STATED THAT SHE WILL DELIVER THE WHEELCHAIR TO THE HOSPITAL HE [facility] WHEN HE IS DISCHARGED. DCP- Discharge Planning Updated by [email or web address]: Ariela Paul on 06/11/18 8:[address] SPOKE WITH TATA AT [facility] ABOUT WHEELCHAIR ORDER SHE HAD NOT RECEIVED THE FAX THAT I SENT LAST NIGHT WILL RESEND ORDER AND CLINICAL THE PATIENT IS MEDICAID AND WILL NEED PRIOR AUTH TO GET APPROVED. CM WILL CONTINUE TO FOLLOW AND ASSIST NEEDED DCP- Discharge Planning Updated by [email or web address]: Ariela Paul on 06/10/18 7:[address] Patient Name: NADIA WHITT Admission Status: Elective Accout number: [id number] Admission Date: 06-06-2018 : 1965 Admission Diagnosis:OTH COMPLICATIONS OF PROCEDURES, NEC, INIT Attending: JOSY GONZALEZ Current LOS: 4 Anticipated DC Date: Planned Disposition: Home with Home Health Primary Insurance: MEDICAID [place] Discharge Planning Comments: CM met with patient today to assess discharge planning needs. Patient stated that he lives in the second floor apartment where he plans to return when he is discharged. His neighbor will be the one to drive him home. He has been using his neighbor's electric wheelchair. He stated that he can get to his apartment. He will need a wheelchair when he is discharged. He will also need home health. JINA with [facility] and [facility], signed and placed in chart. CM will send referral to [facility] and the order to Tata at [facility]. CM will continue to follow and assist with dc planning Blade Grader Operator: Ariela Paul DCPIA - Discharge Planning Initial Assessment Updated by [email or web address]: Ariela Paul on 06/10/18 8:52 pm * Is the patient Alert and Oriented? Yes * How many steps to enter\exit or inside your home? 12 * PCP TRACEY * Pharmacy [facility] [address] * Preadmission Environment Home Alone * ADLs Independent * Equipment Glucometer * List name and contact numbers for known caregivers / representatives who currently or will assist patient after discharge: LETICIA BOWEN (FATHER) [phone] * Verbal permission to speak to the caregivers and representatives has been obtained from the patient. N/A * Community resources currently utilized None * Additional services required to return to the preadmission environment? Yes * Can the patient safely return to the preadmission environment? Yes * Has this patient been hospitalized within the prior 30 days at any hospital? No Last DP export: 06/11/18 8:57 am Patient Name: NADIA WHITT Page 99296 at 1548 All edits/amendments must be made on the electronic document DICTATION DATE: 06/11/181546 FLAP CURER: ANJU 06/11/181546 RPT#: [id number] DC DATE: STATUS: ADM IN [facility] [address] [place] [address] END OF REPORT
--- NOTE | 2018-06-11 16:08 | MORECARE ---
CASE MANAGEMENT DISCHARGE SUMMARY PATIENT: NADIA WHITT UNIT: [id number] ADM DATE: 06/06/18 AGE: 52 : 69 SEX: M ROOM/BED: D.2219 AUTHOR: BRIAN ELLSWORTH PHYSICIAN: REFERRING PHYSICIAN: JOSY GONZLAEZ MD DATE OF SERVICE: 06/11/18 Discharge Plan Patient Name: NADIA WHITT Facility: [facility]:[place] : 1965 Planned Disposition: Home with Home Health Anticipated Discharge Date: Discharge Date: Expected LOS: Initial Reviewer: [email or web address] Initial Review Date: 06/06/2018 Generated: 06/11/18 5:07 pm Comments DCP- Discharge Planning Updated by [email or web address]: Ariela Paul on 06/11/18 3:[address] WHEELCHAIR HAS BEEN DELIVERED, I CALLED AND SPOKE WITH DR ISSA TO LET HIM KNOW THAT THE PATIENT DOES NOT HAVE ANY REHAB BENEFITS, WILL GO HOME WITH HOME HEALTH THAT IS ALREADY SET UP WITH PATIENT. DCP- Discharge Planning Updated by [email or web address]: Ariela Paul on 06/11/18 2:[address] TATA FROM [facility] PATIENT STATED THAT SHE WILL DELIVER THE WHEELCHAIR TO THE HOSPITAL HE [facility] WHEN HE IS DISCHARGED. DCP- Discharge Planning Updated by [email or web address]: Ariela Paul on 06/11/18 8:[address] SPOKE WITH TATA AT [facility] ABOUT WHEELCHAIR ORDER SHE HAD NOT RECEIVED THE FAX THAT I SENT LAST NIGHT WILL RESEND ORDER AND CLINICAL THE PATIENT IS MEDICAID AND WILL NEED PRIOR AUTH TO GET APPROVED. CM WILL CONTINUE TO FOLLOW AND ASSIST NEEDED DCP- Discharge Planning Updated by [email or web address]: Ariela Paul on 06/10/18 7:[address] Patient Name: NADIA WHITT Admission Status: Elective Accout number: [id number] Admission Date: 06-06-2018 : 1965 Admission Diagnosis:OTH COMPLICATIONS OF PROCEDURES, NEC, INIT Attending: JOSY GONZALEZ Current LOS: 4 Anticipated DC Date: Planned Disposition: Home with Home Health Primary Insurance: MEDICAID [place] Discharge Planning Comments: CM met with patient today to assess discharge planning needs. Patient stated that he lives in the second floor apartment where he plans to return when he is discharged. His neighbor will be the one to drive him home. He has been using his neighbor's electric wheelchair. He stated that he can get to his apartment. He will need a wheelchair when he is discharged. He will also need home health. JINA with [facility], signed and placed in chart. CM will send referral to [facility] and the order to Tata at [facility]. CM will continue to follow and assist with dc planning Supervisor Rolling Room: Ariela Paul DCPIA - Discharge Planning Initial Assessment Updated by [email or web address]: Ariela Paul on 06/10/18 8:52 pm * Is the patient Alert and Oriented? Yes * How many steps to enter\exit or inside your home? 12 * PCP TRACEY * Pharmacy [facility] * Preadmission Environment Home Alone * ADLs Independent * Equipment Glucometer * List name and contact numbers for known caregivers / representatives who currently or will assist patient after discharge: LETICIA BOWEN (FATHER) [phone] * Verbal permission to speak to the caregivers and representatives has been obtained from the patient. N/A * Community resources currently utilized None * Additional services required to return to the preadmission environment? Yes * Can the patient safely return to the preadmission environment? Yes * Has this patient been hospitalized within the prior 30 days at any hospital? No Last DP export: 06/11/18 2:48 pm Patient Name: NADIA WHITT Page 59447 at 1608 All edits/amendments must be made on the electronic document DICTATION DATE: 06/11/181606 LEASING ASSISTANT: ANJU 06/11/181606 RPT#: [id number] DC DATE: STATUS: ADM IN [facility] [address] [place] [address] END OF REPORT
[2018-06-11 16:34] VITALS: BP 164/72
--- NOTE | 2018-06-11 18:56 | NUR ---
I have reviewed this patient and I concur with the Shift Assessment completed by the Licensed Practical Nurse today this shift.
--- NOTE | 2018-06-11 20:00 | NUR ---
ASSESSMENT PER FLOWSHEET. RT BKA NOTED KENYA WRAP DRSG C/D/I. FAMILY MEMBERS IN ROOM. FISTULA TO LEFT UPPER ARM. REFUSED TO WEAR SCD TO LEFT LEG. VOIDS IN URINAL.
--- NOTE | 2018-06-11 20:35 | NUR ---
C/O INCISIONAL PAIN RATES PAIN LEVEL #6 NORCO 10 TAB ONE PO GIVEN FOR PAIN CONTROL NGPH=170 NO COVERAGE NEEDED.
[2018-06-11 21:12] VITALS: BP 172/80
--- NOTE | 2018-06-11 21:15 | NUR ---
UP IN WC FAMILY TOOK PT OUTSIDE FOR SOME FRESH AIR.
--- NOTE | 2018-06-11 21:57 | NUR ---
RETURNS TO ROOM BACK TO BED SR UP X2 CALL LIGHT WITHIN REACH.
--- NOTE | 2018-06-12 | NUR ---
AWAKE WATCHING TV DENEIS NEEDS.
--- NOTE | 2018-06-12 03:07 | NUR ---
AWAKE C/O PAIN INCISIONAL AREA. RATES PAIN LEVEL #6. NORCO 10 TAB ONE PO GIVEN FOR PAIN CONTROL.
[2018-06-12 05:09] VITALS: BP 134/80
[2018-06-12 09:35] VITALS: BP 179/68
[2018-06-12 10:38] LABS: BASOPHILS 0.5 % (0-2); EOSINOPHILS 2.7 % (0-7); HEMATOCRIT 25.3 % (42.0-54.0); HEMOGLOBIN 8.3 g/dL (13.5-17.5); IMMATURE GRANULOCYTES 1.2 % (0-5); LYMPHOCYTES 23.7 % (15-50); MCH 31.2 pg (26.0-34.0); MCHC 32.8 g/dL (31.0-37.0); MCV 95.1 fL (80.0-100.0); MEAN PLATELET VOLUME 10.8 fL (7.4-10.4); MONOCYTES 9.7 % (2-11); NEUTROPHILS 62.2 % (40-80); PLATELET COUNT 146 10x3/uL (130-400); RBC 2.66 10x6/uL (4.20-6.10); RDW 16.8 % (11.5-14.5)
[2018-06-12 10:44] LABS: ANION GAP 15.3 mmol/L (8-16); CALCIUM 8.7 mg/dL (8.5-10.1); CARBON DIOXIDE 24.9 mmol/L (21.0-32.0); CREATININE - SERUM 5.3 mg/dL (0.6-1.3); POTASSIUM - SERUM 4.2 mmol/L (3.5-5.1)
--- NOTE | 2018-06-12 13:09 | NUR ---
RECEIVED CALL FROM HEALTH INFORMATION MANAGERS TASHIA TO DETAIL ASSEMBLER PT. PT VSS, HAD 3L TAKEN OFF, PT IS ALERT AND ORIENTED, TAKEN BACK TO ROOM AND SET UP FOR LUNCH. CONTINUE WITH PLAN OF CARE
[2018-06-12 13:58] VITALS: BP 154/74
[2018-06-12 18:01] VITALS: BP 146/65
--- NOTE | 2018-06-12 20:52 | NUR ---
OT NOTE: PT COMPLETED SIT TO STAND AND TRANSFER WITH CGA. PT FOLLOWED WT BEARING PRECAUTIONS. THANK YOU, COLLEEN PAULA
[2018-06-12 21:11] VITALS: BP 177/52
[2018-06-13 01:32] VITALS: BP 180/64
--- NOTE | 2018-06-13 02:20 | NUR ---
RESTING QUIETLY DENIES NEEDS.
--- NOTE | 2018-06-13 04:51 | NUR ---
C/O INCISIONAL PAIN NORCO 10 TAB ONE PO GIVEN FOR PAIN CONTROL.
[2018-06-13 05:18] VITALS: BP 164/62
[2018-06-13 07:09] LABS: BASOPHILS 0.2 % (0-2); EOSINOPHILS 1.4 % (0-7); HEMATOCRIT 27.1 % (42.0-54.0); HEMOGLOBIN 8.9 g/dL (13.5-17.5); IMMATURE GRANULOCYTES 0.3 % (0-5); LYMPHOCYTES 11.7 % (15-50); MCH 31.6 pg (26.0-34.0); MCHC 32.8 g/dL (31.0-37.0); MCV 96.1 fL (80.0-100.0); MEAN PLATELET VOLUME 10.2 fL (7.4-10.4); NEUTROPHILS 78.4 % (40-80); PLATELET COUNT 150 10x3/uL (130-400); RBC 2.82 10x6/uL (4.20-6.10); RDW 17.4 % (11.5-14.5)
[2018-06-13 07:15] LABS: WBC 12.5 10x3/uL (4.8-10.8)
--- NOTE | 2018-06-13 07:20 | NUR ---
PT IS RESTING IN BED WITH EYES OPEN. RESPIRATIONS ARE EVEN AND UNLABORED. PT WITH RIGHT BKA. SUTURES AND MARICHUY ARE OPEN TO AIR. SLIGHT REDNESS NOTED TO INCISION. PT REPORTS SLIGHT PAIN BUT DENIES NEEDS AT THIS TIME. BED IS IN THE LOWEST POSITION. CALL LIGHT AND BEDSIDE TABLE ARE WITHIN REACH. SIDE RAILS X 2. WILL CONT TO MONITOR.
[2018-06-13 07:35] LABS: ANION GAP 15.5 mmol/L (8-16); CARBON DIOXIDE 26.7 mmol/L (21.0-32.0); CREATININE - SERUM 5.5 mg/dL (0.6-1.3); PHOSPHOROUS 5.4 mg/dL (2.5-4.9); POTASSIUM - SERUM 4.2 mmol/L (3.5-5.1)
[2018-06-13 09:19] VITALS: BP 176/75
--- NOTE | 2018-06-13 12:05 | MORECARE ---
CASE MANAGEMENT DISCHARGE SUMMARY PATIENT: NADIA WHITT UNIT: [id number] ADM DATE: 06/06/18 AGE: 52 : 69 SEX: M ROOM/BED: D.2219 AUTHOR: BRIAN ELLSWORTH PHYSICIAN: REFERRING PHYSICIAN: JOSY GONZALEZ MD DATE OF SERVICE: 06/13/18 Discharge Plan Patient Name: NADIA WHITT Facility: [facility]:[place] : 1965 Planned Disposition: Home with Home Health Anticipated Discharge Date: Discharge Date: Expected LOS: Initial Reviewer: [email or web address] Initial Review Date: 06/06/2018 Generated: 06/13/18 1:05 pm Comments DCP- Discharge Planning Updated by [email or web address]: Ariela Paul on 06/13/18 10:[address] Patient will be discharging home today with [facility]. His neighbor will be driving him home. His wheelchair is in his room. I have spoken with Odilia at [employer] and they will resume . Patient denies any other needs. CM to follow and assist with DC planning DCP- Discharge Planning Updated by [email or web address]: Ariela Paul on 06/11/18 3:[address] WHEELCHAIR HAS BEEN DELIVERED, I CALLED AND SPOKE WITH DR ISSA TO LET HIM KNOW THAT THE PATIENT DOES NOT HAVE ANY REHAB BENEFITS, WILL GO HOME WITH HOME HEALTH THAT IS ALREADY SET UP WITH PATIENT. DCP- Discharge Planning Updated by [email or web address]: Ariela Paul on 06/11/18 2:[address] TATA FROM [facility] PATIENT STATED THAT SHE WILL DELIVER THE WHEELCHAIR TO THE HOSPITAL HE WILL HAVE [facility] WHEN HE IS DISCHARGED. DCP- Discharge Planning Updated by [email or web address]: Ariela Paul on 06/11/18 8:[address] [facility] SHE HAD NOT RECEIVED THE FAX THAT I SENT LAST NIGHT WILL RESEND ORDER AND CLINICAL THE PATIENT IS MEDICAID AND WILL NEED PRIOR AUTH TO GET APPROVED. CM WILL CONTINUE TO FOLLOW AND ASSIST NEEDED DCP- Discharge Planning Updated by [email or web address]: Ariela Paul on 06/10/18 7:[address] Patient Name: NADIA WHITT Admission Status: Elective Accout number: [id number] Admission Date: 06-06-2018 : 1965 Admission Diagnosis:OTH COMPLICATIONS OF PROCEDURES, NEC, INIT Attending: JOSY GONZALEZ Current LOS: 4 Anticipated DC Date: Planned Disposition: Home with Home Health Primary Insurance: MEDICAID [place] Discharge Planning Comments: CM met with patient today to assess discharge planning needs. Patient stated that he lives in the second floor apartment where he plans to return when he is discharged. His neighbor will be the one to drive him home. He has been using his neighbor's electric wheelchair. He stated that he can get to his apartment. He will need a wheelchair when he is discharged. He will also need home health. JINA with [facility] and [facility], signed and placed in chart. CM will send referral to [facility] and the order to Tata at [facility]. CM will continue to follow and assist with dc planning Production Recorder: Ariela Paul DCPIA - Discharge Planning Initial Assessment Updated by [email or web address]: Ariela Paul on 06/10/18 8:52 pm * Is the patient Alert and Oriented? Yes * How many steps to enter\exit or inside your home? 12 * PCP TRACEY * Pharmacy [facility] * Preadmission Environment Home Alone * ADLs Independent * Equipment Glucometer * List name and contact numbers for known caregivers / representatives who currently or will assist patient after discharge: LETICIA BOWEN (FATHER) [phone] * Verbal permission to speak to the caregivers and representatives has been obtained from the patient. N/A * Community resources currently utilized None * Additional services required to return to the preadmission environment? Yes * Can the patient safely return to the preadmission environment? Yes * Has this patient been hospitalized within the prior 30 days at any hospital? No Last DP export: 06/11/18 3:07 pm Patient Name: NADIA WHITT Page 40486 at 1205 All edits/amendments must be made on the electronic document DICTATION DATE: 06/13/18 1205 NEWSPAPER MANAGER: ANJU 06/13/18 1205 RPT#: [id number] DC DATE: STATUS: ADM IN [facility] [address] [place] [address] END OF REPORT
[2018-06-13] MEDS ORDERED: HYDROCODON-ACE1 EAC2 PO (12:21)
[2018-06-13 12:27] VITALS: BP 144/70
--- NOTE | 2018-06-13 13:12 | NUR ---
DIALYSIS COORINATOR: PT FROM [facility]. ELECTRICAL INSTRUMENT REPAIRER STATED PATIENT WOULD BENEFIT FROM REHAB TO TEACH HOW TO MANAGE WITH AMPUTATION. REPORTS THAT AFTER PREVIOUS SURGERY PATIENT WOULD COME FOR TREATMENT WITH NO BANDAGES ON FOOT, WALKING ON FOOT WITH NO APPROPRIATE FOLLOW UP CARE. YOEL MATHEW.
--- NOTE | 2018-06-13 13:48 | NUR ---
DISCHARGE INSTRUCTIONS COVERED. ALL QUESTIONS ANSWERED. PRINTED RX GIVEN TO PT. PT TORY FURTHER QUESTIONS AND/OR CONCERNS AT THIS TIME. DISCHARGE PAPERS SIGNED AND PLACED IN CHART. PT IS WAITING FOR TRANSPORTATION HOME. WILL CONT TO MONITOR.
[2018-06-13 14:58] VITALS: BP 168/71
--- NOTE | 2018-06-13 15:50 | NUR ---
PT TRANSPORTED OUT OF ROOM VIA WHEELCHAIR. PT DENIES FURTHER QUESTIONS/CONCERNS. PT STATES THAT HE DOES HAVE PRINTED RX AND DENIES FURTHER NEEDS. PT THANKS NURSING STAFF FOR CARE GIVEN. PT IS ACCOMPANIED BY FAMILY MEMBERS.
--- NOTE | 2018-06-17 13:57 | MORECARE ---
CASE MANAGEMENT DISCHARGE SUMMARY PATIENT: NADIA WHITT UNIT: [id number] ADM DATE: 06/06/18 AGE: 52 : 69 SEX: M ROOM/BED: D.2219 AUTHOR: BRIAN ELLSWORTH PHYSICIAN: REFERRING PHYSICIAN: JOSY GONZALEZ MD DATE OF SERVICE: 06/17/18 Discharge Plan Patient Name: NADIA WHITT Facility: [facility]:[place] : 1965 Planned Disposition: Home with Home Health Anticipated Discharge Date: Discharge Date: 06/13/2018 Expected LOS: 0 Initial Reviewer: [email or web address] Initial Review Date: 06/06/2018 Generated: 06/17/18 2:57 pm Comments DCP- Discharge Planning Updated by [email or web address]: Ariela Paul on 06/13/18 10:[address] Patient will be discharging home today with [facility]. His neighbor will be driving him home. His wheelchair is in his room. I have spoken with Odilia at [facility] and they will resume HH. Patient denies any other needs. CM to follow and assist with DC planning DCP- Discharge Planning Updated by [id number]: Ariela Paul on 06/11/18 3:[address] WHEELCHAIR HAS BEEN DELIVERED, I CALLED AND SPOKE WITH DR ISSA TO LET HIM KNOW THAT THE PATIENT DOES NOT HAVE ANY REHAB BENEFITS, WILL GO HOME WITH HOME HEALTH THAT IS ALREADY SET UP WITH PATIENT. DCP- Discharge Planning Updated by [email or web address]: Ariela Paul on 06/11/18 2:[address] TATA FROM [facility] PATIENT STATED THAT SHE WILL DELIVER THE WHEELCHAIR TO THE HOSPITAL HE WILL HAVE [facility] WHEN HE IS DISCHARGED. DCP- Discharge Planning Updated by [email or web address]: Ariela Paul on 06/11/18 8:[address] SPOKE WITH TATA AT [facility] ABOUT WHEELCHAIR ORDER SHE HAD NOT RECEIVED THE FAX THAT I SENT LAST NIGHT WILL RESEND ORDER AND CLINICAL THE PATIENT IS MEDICAID AND WILL NEED PRIOR AUTH TO GET APPROVED. CM WILL CONTINUE TO FOLLOW AND ASSIST NEEDED DCP- Discharge Planning Updated by [email or web address]: Ariela Paul on 06/10/18 7:[address] Patient Name: NADIA WHITT Admission Status: Elective Accout number: [id number] Admission Date: 06-06-2018 : 1965 Admission Diagnosis:OTH COMPLICATIONS OF PROCEDURES, NEC, INIT Attending: JOSY GONZALEZ Current LOS: 4 Anticipated DC Date: Planned Disposition: Home with Home Health Primary Insurance: MEDICAID [place] Discharge Planning Comments: CM met with patient today to assess discharge planning needs. Patient stated that he lives in the second floor apartment where he plans to return when he is discharged. His neighbor will be the one to drive him home. He has been using his neighbor's electric wheelchair. He stated that he can get to his apartment. He will need a wheelchair when he is discharged. He will also need home health. JINA with [facility], signed and placed in chart. CM will send referral to [facility] and the order to Tata at [facility]. CM will continue to follow and assist with dc planning Barrel Tester: Ariela Paul DCPIA - Discharge Planning Initial Assessment Updated by [email or web address]: Ariela Paul on 06/10/18 8:52 pm * Is the patient Alert and Oriented? Yes * How many steps to enter\exit or inside your home? 12 * PCP TRACEY * Pharmacy [facility] * Preadmission Environment Home Alone * ADLs Independent * Equipment Glucometer * List name and contact numbers for known caregivers / representatives who currently or will assist patient after discharge: LETICIA BOWEN (FATHER) [phone] * Verbal permission to speak to the caregivers and representatives has been obtained from the patient. N/A * Community resources currently utilized None * Additional services required to return to the preadmission environment? Yes * Can the patient safely return to the preadmission environment? Yes * Has this patient been hospitalized within the prior 30 days at any hospital? No Last DP export: 06/13/18 11:05 am Patient Name: NADIA WHITT Page 99524 at 1357 All edits/amendments must be made on the electronic document DICTATION DATE: 06/17/18 120[address] PA[address] RA[address]RO[address] CAR: ANJU 06/17/18 1350 RPT#: [id number] DC DATE:06/13/18 STATUS: DIS IN [facility] [address] [place] [address] END OF REPORT
== END 2018-06-13 15:51 | disposition home health service (06) | DRG 907 ==
LOC: D.MS 06-06 06:00 → D.SDCHOLD 06-06 06:00 → D.MS 06-06 13:46
PROVIDERS: Anesthesiology; Internal Medicine Nephrology; ADMIT Orthopaedic Surgery; ATTEND Orthopaedic Surgery
PROC: 0Y6H0Z2 Detachment at Right Lower Leg, Mid, Open Approach (ICD-10-PCS; principal; 2018-06-06 08:15)
DX: T81.89XA Other complications of procedures, not elsewhere classified, initial encounter (principal); N18.6 End stage renal disease; I13.2 Hypertensive heart and chronic kidney disease with heart failure and with stage 5 chronic kidney disease, or end stage renal disease; E11.22 Type 2 diabetes mellitus with diabetic chronic kidney disease; I50.9 Heart failure, unspecified; I25.10 Atherosclerotic heart disease of native coronary artery without angina pectoris; I70.293 Other atherosclerosis of native arteries of extremities, bilateral legs; D63.1 Anemia in chronic kidney disease

== ENCOUNTER 2018-06-25 23:51 | Inpatient (IN) | payer MEDICAID ==
--- NOTE | ~2018-06-25 | DS ---
PATIENT:NADIA WHITT :[birth year] MEDICAL RECORD: [id number] DISCHARGE SUMMARY ADMISSION DATE: 06/26/18 DISCHARGE DATE: 07/01/18 HISTORY OF PRESENT ILLNESS: Mr. 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 He has been followed by home health at home, apparently fell at home, striking the stump, and has developed cellulitis following that fall, and was admitted for antibiotic therapy. HOSPITAL COURSE: The patient received a course of vancomycin and Zosyn and his stump and improved. It did not require any further intervention, was seen by orthopedics. Cultures grew a staph and Enterococcus sensitive to the vanc and he will continue vancomycin as an outpatient in dialysis. During this time, was otherwise stable with no major other intercurrent medical problems. He continues acute dialysis without difficulty. DISCHARGE DIAGNOSES: 1. Cellulitis of the stump, now improved with antibiotic therapy. 2. End-stage renal disease due to diabetes mellitus. 3. Chronic dialysis. 4. Erythropoietin-dependent anemia. 5. Diabetes mellitus with variable control. PLAN: The patient will be discharged today. He will resume all of his home medications. He will continue home health and home PT. We will continue vancomycin as an outpatient in dialysis for 2 more weeks. He will not receive vancomycin today since his level is over 20 and we will follow that in dialysis. His discharge meds will be amlodipine 5 b.i.d., NPH 5 b.i.d., Nephro-Niyah 1 daily, Renvela 800 mg 2 t.i.d., Ultram p.r.n. pain. We will see him weekly in the dialysis unit. TRANSINT:[id number] Voice Confirmation ID: [id number] DOCUMENT ID: [id number] FIORDALIZA WEBB MD CC: [id number] DICTATION DATE: 07/01/18724 PRODUCTION CLERKS SUPERVISOR: 07/01/182224 DIS IN 07/01/18 [facility] [address] [place] [id number]
[~2018-06-25 23:51] MED LIST changes: +HYDROCODON-ACE1 EAC2 PO
[2018-06-26 01:03] LABS: HEMATOCRIT 28.6 % (42.0-54.0); HEMOGLOBIN 9.5 g/dL (13.5-17.5); LYMPHOCYTES 17.1 % (15-50); MCH 32.9 pg (26.0-34.0); MCHC 33.2 g/dL (31.0-37.0); MEAN PLATELET VOLUME 9.6 fL (7.4-10.4); NEUTROPHILS 76.2 % (40-80); PLATELET COUNT 147 10x3/uL (130-400); RBC 2.89 10x6/uL (4.20-6.10); RDW 16.1 % (11.5-14.5)
[2018-06-26 01:16] LABS: ANION GAP 16.4 mmol/L (8-16); BILIRUBIN - TOTAL 0.38 mg/dL (0.2-1.3); CARBON DIOXIDE 26.7 mmol/L (21.0-32.0); POTASSIUM - SERUM 4.1 mmol/L (3.5-5.1); PROTEIN - SERUM 7.9 g/dL (6.4-8.2)
[2018-06-26 03:11] VITALS: BMI 33.0
[2018-06-26 09:15] VITALS: BP 200/56
[2018-06-26 09:23] VITALS: BP 187/80
[2018-06-26 13:16] VITALS: BMI 33.0
[2018-06-26 14:17] VITALS: BP 156/88
[2018-06-26 22:28] VITALS: BP 155/49
[2018-06-27 05:02] VITALS: BP 172/49
[2018-06-27 08:00] LABS: BASOPHILS 0.8 % (0-2); EOSINOPHILS 3.1 % (0-7); HEMATOCRIT 29.9 % (42.0-54.0); HEMOGLOBIN 9.6 g/dL (13.5-17.5); IMMATURE GRANULOCYTES 0.4 % (0-5); LYMPHOCYTES 20.4 % (15-50); MCH 31.6 pg (26.0-34.0); MCHC 32.1 g/dL (31.0-37.0); MCV 98.4 fL (80.0-100.0); MEAN PLATELET VOLUME 10.5 fL (7.4-10.4); MONOCYTES 8.2 % (2-11); NEUTROPHILS 67.1 % (40-80); PLATELET COUNT 157 10x3/uL (130-400); RBC 3.04 10x6/uL (4.20-6.10); RDW 16.1 % (11.5-14.5); WBC 7.2 10x3/uL (4.8-10.8)
[2018-06-27 08:14] LABS: % SATURATION 17 % (15-55); IRON 48 ug/dl (35-150); TOTAL IRON BIND CAPACITY 274 ug/dl (260-445); UNSAT IRON BIND CAPACITY 226 ug/dl (150-375)
[2018-06-27 08:20] VITALS: BP 182/62
[2018-06-27 12:26] VITALS: BP 131/54
[2018-06-27 14:44] VITALS: BP 179/59
[2018-06-27 20:52] VITALS: BP 176/58
[2018-06-28 01:02] VITALS: BP 179/73
[2018-06-28 04:13] LABS: ANION GAP 15.7 mmol/L (8-16); CALCIUM 8.6 mg/dL (8.5-10.1); CREATININE - SERUM 5.6 mg/dL (0.6-1.3); PHOSPHOROUS 7.5 mg/dL (2.5-4.9); POTASSIUM - SERUM 4.7 mmol/L (3.5-5.1); VANCOMYCIN - RANDOM 7.2 ug/mL (10.0-20.0)
[2018-06-28 04:54] VITALS: BP 176/52
[2018-06-28 07:59] VITALS: BP 171/66
[2018-06-28 11:24] VITALS: BP 166/73
--- NOTE | 2018-06-28 16:38 | MORECARE ---
CASE MANAGEMENT DISCHARGE SUMMARY PATIENT: NADIA WHITT UNIT: [id number] ADM DATE: 06/26/18 AGE: 52 : 69 SEX: M ROOM/BED: D.2204 AUTHOR: BRIAN ELLSWORTH PHYSICIAN: REFERRING PHYSICIAN: HANY ST MD DATE OF SERVICE: 06/28/18 Discharge Plan Patient Name: NADIA WHITT Facility: [facility]:[place] : 1965 Planned Disposition: Home with Home Health Anticipated Discharge Date: Discharge Date: Expected LOS: Initial Reviewer: [email or web address] Initial Review Date: 06/26/2018 Generated: 06/28/18 5:38 pm Patient Name: NADIA WHITT Page 86827 at 1638 All edits/amendments must be made on the electronic document DICTATION DATE: 06/28/181636 POWER GENERATION PLANT OPERATOR: ANJU 06/28/18 163 RPT#: [id number] DC DATE: STATUS: ADM IN [facility] [address] [place] [address] END OF REPORT
--- NOTE | 2018-06-28 16:47 | MORECARE ---
CASE MANAGEMENT DISCHARGE SUMMARY PATIENT: NADIA WHITT UNIT: [id number] ADM DATE: 06/26/18 AGE: 52 : 69 SEX: M ROOM/BED: D.2204 AUTHOR: BRIAN ELLSWORTH PHYSICIAN: REFERRING PHYSICIAN: HANY ST MD DATE OF SERVICE: 06/28/18 Discharge Plan Patient Name: NADIA WHITT Facility: [facility]:[place] : 1965 Planned Disposition: Home with Home Health Anticipated Discharge Date: Discharge Date: Expected LOS: Initial Reviewer: [email or web address] Initial Review Date: 06/26/2018 Generated: 06/28/18 5:47 pm DCPIA - Discharge Planning Initial Assessment Updated by [email or web address]: Ariela Paul on 06/28/18 4:45 pm * Is the patient Alert and Oriented? Yes * How many steps to enter\exit or inside your home? 12 * PCP TRACEY * Pharmacy [facility] * Preadmission Environment Home Alone * ADLs Independent * Equipment Glucometer Wheelchair * List name and contact numbers for known caregivers / representatives who currently or will assist patient after discharge: LETICIA (FATHER) [phone] * Verbal permission to speak to the caregivers and representatives has been obtained from the patient. N/A * Community resources currently utilized Home Health * Please name any agencies selected above. [facility] * Additional services required to return to the preadmission environment? No * Can the patient safely return to the preadmission environment? Yes * Has this patient been hospitalized within the prior 30 days at any hospital? Yes Last DP export: 06/28/18 3:38 p Patient Name: NADIA WHITT Page 88208 at 1647 All edits/amendments must be made on the electronic document DICTATION DATE: 06/28/181645 RETAIL BANKING MANAGER: ANJU 06/28/181645 RPT#: [id number] DC DATE: STATUS: ADM IN [facility] [address] [place] [address] END OF REPORT
--- NOTE | 2018-06-28 16:55 | MORECARE ---
CASE MANAGEMENT DISCHARGE SUMMARY PATIENT: NADIA WHITT UNIT: [id number] ADM DATE: 06/26/18 AGE: 52 : 69 SEX: M ROOM/BED: D.2204 AUTHOR: JODEE,DOC PHYSICIAN: REFERRING PHYSICIAN: HANY ST MD DATE OF SERVICE: 06/28/18 Discharge Plan Patient Name: NADIA WHITT Facility: [facility]:[place] : 1965 Planned Disposition: Home with Home Health Anticipated Discharge Date: Discharge Date: Expected LOS: Initial Reviewer: [email or web address] Initial Review Date: 06/26/2018 Generated: 06/28/18 5:55 pm Comments DCP- Discharge Planning Updated by [email or web address]: Ariela Paul on 06/28/18 3:[address] Patient Name: NADIA WHITT Admission Status: ER Accout number: [id number] Admission Date: 06-26-2018 : 1965 Admission Diagnosis:INFCT FOL A PROC, SUPERFIC INCISIONAL SURGICAL SITE, IN Attending: HANY ST Current LOS: 2 Anticipated DC Date: Planned Disposition: Home with Home Health Primary Insurance: MEDICAID [place] Discharge Planning Comments: CM met with patient to complete initial dc planning assessment. CM educated patient on the CM role and verbal consent given by patient to complete assessment. Patient lives at home where he is independent with his care. At discharge patient plans to return home and feels this is a safe discharge. Patient is current with [facility]. He is a dialysis patient M-W-F. He has a wheelchair and glucometer at home. Patient denied known discharge needs at this time. CM will continue to follow and will assist as needed with dc plans/needs. Rubber Compounder Supervisor: Ariela Paul DCPIA - Discharge Planning Initial Assessment Updated by [email or web address]: Ariela Paul on 06/28/18 4:45 pm * Is the patient Alert and Oriented? Yes * How many steps to enter\exit or inside your home? 12 * PCP TRACEY * Pharmacy [facility] * Preadmission Environment Home Alone * ADLs Independent * Equipment Glucometer Wheelchair * List name and contact numbers for known caregivers / representatives who currently or will assist patient after discharge: LETICIA (FATHER) [phone] * Verbal permission to speak to the caregivers and representatives has been obtained from the patient. N/A * Community resources currently utilized Home Health * Please name any agencies selected above. [facility] * Additional services required to return to the preadmission environment? No * Can the patient safely return to the preadmission environment? Yes * Has this patient been hospitalized within the prior 30 days at any hospital? Yes Last DP export: 06/28/18 3:47 p Patient Name: NADIA WHITT Page 54160 at 1655 All edits/amendments must be made on the electronic document DICTATION DATE: 06/28/181654 SUPERINTENDENT OPERATING: ANJU 06/28/181654 RPT#: [id number] DC DATE: STATUS: ADM IN [facility] [address] [place] [address] END OF REPORT
[2018-06-28 20:00] VITALS: BP 193/42
[2018-06-29] VITALS: BP 178/79
[2018-06-29 03:00] VITALS: BP 114/59
[2018-06-29 07:31] LABS: BASOPHILS 0.7 % (0-2); EOSINOPHILS 2.1 % (0-7); HEMATOCRIT 30.8 % (42.0-54.0); HEMOGLOBIN 10.2 g/dL (13.5-17.5); IMMATURE GRANULOCYTES 0.2 % (0-5); LYMPHOCYTES 24.1 % (15-50); MCH 32.1 pg (26.0-34.0); MCHC 33.1 g/dL (31.0-37.0); MCV 96.9 fL (80.0-100.0); MEAN PLATELET VOLUME 9.8 fL (7.4-10.4); MONOCYTES 8.3 % (2-11); NEUTROPHILS 64.6 % (40-80); PLATELET COUNT 172 10x3/uL (130-400); RBC 3.18 10x6/uL (4.20-6.10); RDW 16.1 % (11.5-14.5); WBC 6.1 10x3/uL (4.8-10.8)
[2018-06-29 07:51] LABS: ANION GAP 16.6 mmol/L (8-16); CALCIUM 9.5 mg/dL (8.5-10.1); CARBON DIOXIDE 26.2 mmol/L (21.0-32.0); CREATININE - SERUM 5.5 mg/dL (0.6-1.3); PHOSPHOROUS 7.1 mg/dL (2.5-4.9); POTASSIUM - SERUM 4.8 mmol/L (3.5-5.1); VANCOMYCIN - RANDOM 14.8 ug/mL (10.0-20.0)
[2018-06-29 09:50] VITALS: BP 158/55
[2018-06-29 14:41] VITALS: BP 177/46
[2018-06-29 17:12] VITALS: BP 178/69
[2018-06-29 20:00] VITALS: BP 193/77
[2018-06-30] VITALS: BP 155/62
[2018-06-30 03:00] VITALS: BP 148/49
[2018-06-30 05:55] LABS: EOSINOPHILS 2.7 % (0-7); HEMATOCRIT 29.6 % (42.0-54.0); HEMOGLOBIN 9.7 g/dL (13.5-17.5); IMMATURE GRANULOCYTES 0.2 % (0-5); LYMPHOCYTES 32.6 % (15-50); MCH 31.6 pg (26.0-34.0); MCHC 32.8 g/dL (31.0-37.0); MCV 96.4 fL (80.0-100.0); MEAN PLATELET VOLUME 11.1 fL (7.4-10.4); NEUTROPHILS 53.5 % (40-80); PLATELET COUNT 181 10x3/uL (130-400); RBC 3.07 10x6/uL (4.20-6.10); WBC 4.9 10x3/uL (4.8-10.8)
[2018-06-30 06:10] LABS: ANION GAP 17.9 mmol/L (8-16); CALCIUM 9.8 mg/dL (8.5-10.1); CARBON DIOXIDE 24.6 mmol/L (21.0-32.0); CREATININE - SERUM 6.3 mg/dL (0.6-1.3); POTASSIUM - SERUM 4.5 mmol/L (3.5-5.1); VANCOMYCIN - RANDOM 18.6 ug/mL (10.0-20.0)
[2018-06-30 08:21] VITALS: BP 160/41
[2018-06-30 14:23] VITALS: BP 156/76
[2018-06-30 20:00] VITALS: BP 146/44
[2018-07-01] VITALS: BP 131/51
[2018-07-01 03:00] VITALS: BP 170/55
[2018-07-01 04:36] LABS: HEMATOCRIT 28.6 % (42.0-54.0); HEMOGLOBIN 9.8 g/dL (13.5-17.5); LYMPHOCYTES 23.9 % (15-50); MCH 32.8 pg (26.0-34.0); MCHC 34.3 g/dL (31.0-37.0); MCV 95.7 fL (80.0-100.0); MEAN PLATELET VOLUME 9.9 fL (7.4-10.4); NEUTROPHILS 64.6 % (40-80); PLATELET COUNT 174 10x3/uL (130-400); RBC 2.99 10x6/uL (4.20-6.10); RDW 15.1 % (11.5-14.5); WBC 4.8 10x3/uL (4.8-10.8)
[2018-07-01 04:37] LABS: ANION GAP 18.2 mmol/L (8-16); CARBON DIOXIDE 24.1 mmol/L (21.0-32.0)
[2018-07-01 04:39] LABS: POTASSIUM - SERUM 5.3 mmol/L (3.5-5.1)
[2018-07-01 04:55] LABS: CALCIUM 10.1 mg/dL (8.5-10.1); CREATININE - SERUM 6.9 mg/dL (0.6-1.3); VANCOMYCIN - RANDOM 26.2 ug/mL (10.0-20.0)
[2018-07-01 09:19] VITALS: BP 147/64
[2018-07-01] MEDS ORDERED: RENVELA2.4 GM PO (13:38)
[2018-07-01] MEDS ORDERED: ULTRAM50 MG PO (13:39)
[2018-07-01] MEDS ORDERED: HUMULIN N100 U/ML SC (14:03)
[2018-07-01] MEDS ORDERED: RENAGEL800 MG PO (15:32)
[2018-07-01] MEDS ORDERED: NEPHRO-VITE RX1 TAB PO (15:32)
[2018-07-01] MEDS ORDERED: GLIMEPIRIDE2 MG PO (15:38)
--- NOTE | 2018-07-01 16:08 | MORECARE ---
CASE MANAGEMENT DISCHARGE SUMMARY PATIENT: NADIA WHITT UNIT: [id number] ADM DATE: 06/26/18 AGE: 52 : 69 SEX: M ROOM/BED: D.2204 AUTHOR: JODEE,DOC PHYSICIAN: REFERRING PHYSICIAN: HANY ST MD DATE OF SERVICE: 07/01/18 Discharge Plan Patient Name: NADIA WHITT Facility: [facility]:[place] : 1965 Planned Disposition: Home with Home Health Anticipated Discharge Date: Discharge Date: Expected LOS: Initial Reviewer: [email or web address] Initial Review Date: 06/26/2018 Generated: 07/01/18 5:08 pm Comments DCP- Discharge Planning Updated by [email or web address]: Ariela Paul on 07/01/18 3:[address] PATIENT WILL BE DISCHARGHING HOME TODAY CONTINUE WITH [facility] FAXED CLINICAL TO [facility] DCP- Discharge Planning Updated by [email or web address]: Ariela Pual on 06/28/18 3:[address] Patient Name: NADIA WHITT Admission Status: ER Accout number: [id number] Admission Date: 06-26-2018 : 1965 Admission Diagnosis:INFCT FOL A PROC, SUPERFIC INCISIONAL SURGICAL SITE, IN Attending: HANY ST Current LOS: 2 Anticipated DC Date: Planned Disposition: Home with Home Health Primary Insurance: MEDICAID [place] Discharge Planning Comments: CM met with patient to complete initial dc planning assessment. CM educated patient on the CM role and verbal consent given by patient to complete assessment. Patient lives at home where he is independent with his care. At discharge patient plans to return home and feels this is a safe discharge. Patient is current with [facility]. He is a dialysis patient M-W-F. He has a wheelchair and glucometer at home. Patient denied known discharge needs at this time. CM will continue to follow and will assist as needed with dc plans/needs. Director Clinical Pharmacology: Ariela Paul DCPIA - Discharge Planning Initial Assessment Updated by [email or web address]: Ariela Paul on 06/28/18 4:45 pm * Is the patient Alert and Oriented? Yes * How many steps to enter\exit or inside your home? 12 * PCP TRACEY * Pharmacy [facility] * Preadmission Environment Home Alone * ADLs Independent * Equipment Glucometer Wheelchair * List name and contact numbers for known caregivers / representatives who currently or will assist patient after discharge: LETICIA (FATHER) [phone] * Verbal permission to speak to the caregivers and representatives has been obtained from the patient. N/A * Community resources currently utilized Home Health * Please name any agencies selected above. [facility] * Additional services required to return to the preadmission environment? No * Can the patient safely return to the preadmission environment? Yes * Has this patient been hospitalized within the prior 30 days at any hospital? Yes External Providers External Provider: [facility] Next Contact Date: Service Request Date: Service Type: Resolution: Reviewer: Comments: Rojelio DP export: 06/28/18 3:55 p Patient Name: NADIA WHITT Page 73441 at 1608 All edits/amendments must be made on the electronic document DICTATION DATE: 07/01/181606 TELEPHONE INSTRUMENT SUPERVISOR: ANJU 07/01/181606 RPT#: [id number] DC DATE: STATUS: ADM IN [facility] [address] [place] [address] END OF REPORT
== END 2018-07-01 17:30 | disposition home health service (06) | DRG 862 ==
LOC: D.ER 23:51 → D.MS 06-26 01:35
PROVIDERS: Family Medicine; Internal Medicine Nephrology; ADMIT Internal Medicine
DX: T81.41XA Infection following a procedure, superficial incisional surgical site, initial encounter (principal); N18.6 End stage renal disease; I13.2 Hypertensive heart and chronic kidney disease with heart failure and with stage 5 chronic kidney disease, or end stage renal disease; E11.22 Type 2 diabetes mellitus with diabetic chronic kidney disease; I50.9 Heart failure, unspecified; Z99.2 Dependence on renal dialysis; I25.10 Atherosclerotic heart disease of native coronary artery without angina pectoris; E13.40 Other specified diabetes mellitus with diabetic neuropathy, unspecified; E11.51 Type 2 diabetes mellitus with diabetic peripheral angiopathy without gangrene; I70.203 Unspecified atherosclerosis of native arteries of extremities, bilateral legs

== ENCOUNTER 2018-07-03 15:25 | Emergency (ER) | payer MEDICAID ==
[~2018-07-03] VITALS: Ht 177.8 cm; Wt 113.6 kg
[~2018-07-03 15:25] MED LIST changes: +GLIMEPIRIDE2 MG PO; +HUMULIN N100 U/ML SC; +RENVELA2.4 GM PO
[2018-07-03 15:30] VITALS: BP 138/85; Ht 177.8 cm; Wt 113.6 kg
== END 2018-07-03 17:41 | disposition left against medical advice (07) ==
LOC: D.ER 15:25
DX: T87.43 Infection of amputation stump, right lower extremity (principal); I10 Essential (primary) hypertension; E11.9 Type 2 diabetes mellitus without complications

== ENCOUNTER 2018-07-22 11:05 | Inpatient (IN) | payer MEDICAID ==
[~2018-07-22] VITALS: Ht 177.8 cm; Wt 111.2 kg
[2018-07-22 16:36] LABS: BASOPHILS 0.8 % (0-2); HEMATOCRIT 29.9 % (42.0-54.0); HEMOGLOBIN 9.7 g/dL (13.5-17.5); LYMPHOCYTES 18.1 % (15-50); MCH 32.4 pg (26.0-34.0); MCHC 32.4 g/dL (31.0-37.0); MEAN PLATELET VOLUME 10.1 fL (7.4-10.4); MONOCYTES 8.1 % (2-11); RBC 2.99 10x6/uL (4.20-6.10); RDW 16.4 % (11.5-14.5)
[2018-07-22 16:41] LABS: INR 1.04 (0.85-1.17); PROTIME 13.1 SECONDS (11.6-15.0)
[2018-07-22 16:42] LABS: PLATELET COUNT 212 10x3/uL (130-400)
[2018-07-22 16:46] LABS: ALBUMIN 3.3 g/dL (3.4-5.0); ANION GAP 17.1 mmol/L (8-16); BILIRUBIN - TOTAL 0.45 mg/dL (0.2-1.3); CALCIUM 9.6 mg/dL (8.5-10.1); CARBON DIOXIDE 25.1 mmol/L (21.0-32.0); CREATININE - SERUM 5.3 mg/dL (0.6-1.3); POTASSIUM - SERUM 5.2 mmol/L (3.5-5.1); PROTEIN - SERUM 8.4 g/dL (6.4-8.2)
[2018-07-23 11:45] VITALS: BMI 35.2
[2018-07-23 14:57] VITALS: BP 146/59
[2018-07-23 17:10] LABS: BASOPHILS 1.1 % (0-2); EOSINOPHILS 3.1 % (0-7); HEMATOCRIT 28.5 % (42.0-54.0); IMMATURE GRANULOCYTES 0.4 % (0-5); LYMPHOCYTES 21.8 % (15-50); MCH 32.1 pg (26.0-34.0); MCHC 31.6 g/dL (31.0-37.0); MCV 101.8 fL (80.0-100.0); MEAN PLATELET VOLUME 10.2 fL (7.4-10.4); MONOCYTES 8.4 % (2-11); NEUTROPHILS 65.2 % (40-80); PLATELET COUNT 198 10x3/uL (130-400); RDW 16.5 % (11.5-14.5); WBC 5.2 10x3/uL (4.8-10.8)
[2018-07-23 17:21] LABS: CALCIUM 9.1 mg/dL (8.5-10.1); CARBON DIOXIDE 23.2 mmol/L (21.0-32.0)
[2018-07-23 17:28] LABS: CREATININE - SERUM 6.9 mg/dL (0.6-1.3)
[2018-07-23 17:30] LABS: POTASSIUM - SERUM 6.2 mmol/L (3.5-5.1)
[2018-07-23 20:31] VITALS: BP 145/85
[2018-07-24 01:02] VITALS: BP 184/84
[2018-07-24 05:37] VITALS: BP 158/75
[2018-07-24 07:29] VITALS: BP 187/90
[2018-07-24 08:30] LABS: BASOPHILS 0.6 % (0-2); EOSINOPHILS 2.4 % (0-7); HEMATOCRIT 27.4 % (42.0-54.0); HEMOGLOBIN 8.8 g/dL (13.5-17.5); IMMATURE GRANULOCYTES 0.4 % (0-5); LYMPHOCYTES 27.3 % (15-50); MCH 32.2 pg (26.0-34.0); MCHC 32.1 g/dL (31.0-37.0); MCV 100.4 fL (80.0-100.0); MEAN PLATELET VOLUME 10.2 fL (7.4-10.4); MONOCYTES 8.8 % (2-11); NEUTROPHILS 60.5 % (40-80); PLATELET COUNT 186 10x3/uL (130-400); RBC 2.73 10x6/uL (4.20-6.10); RDW 16.1 % (11.5-14.5); WBC 5.5 10x3/uL (4.8-10.8)
[2018-07-24 08:37] LABS: ANION GAP 17.7 mmol/L (8-16); C-REACTIVE PROTEIN 3.3 mg/dL (0.0-0.9); CALCIUM 8.7 mg/dL (8.5-10.1); CARBON DIOXIDE 22.5 mmol/L (21.0-32.0); CREATININE - SERUM 7.3 mg/dL (0.6-1.3)
[2018-07-24 08:43] LABS: POTASSIUM - SERUM 6.2 mmol/L (3.5-5.1)
[2018-07-24 10:06] LABS: ERYTHROCYTE SEDIMENTATION RATE 70 mm/hr (0-20)
[2018-07-24 13:49] VITALS: Ht 177.8 cm; Wt 111.2 kg
[2018-07-24 15:20] VITALS: BP 131/76
--- NOTE | 2018-07-25 07:32 | MORECARE ---
CASE MANAGEMENT DISCHARGE SUMMARY PATIENT: NADIA WHITT UNIT: [id number] ADM DATE: 07/23/18 AGE: 52 : 69 SEX: M ROOM/BED: D.2139 AUTHOR: BRIAN ELLSWORTH PHYSICIAN: REFERRING PHYSICIAN: JOSY GONZALEZ MD DATE OF SERVICE: 07/25/18 Discharge Plan Patient Name: NADIA WHITT [facility] : 1965 Planned Disposition: Left Against Medical Advice Anticipated Discharge Date: 07/24/18 Discharge Date: 07/24/2018 Expected LOS: 1 Initial Reviewer: [email or web address] Initial Review Date: 07/25/2018 Generated: 07/25/18 8:32 am Patient Name: NADIA WHITT Page 72378 at 0732 All edits/amendments must be made on the electronic document DICTATION DATE: 07/25/18731 PRINTING MACHINIST: ANJU 07/25/18 0732 RPT#: [id number] DC DATE:07/24/18 STATUS: DIS IN [facility] [address] [place] [address] END OF REPORT
== END 2018-07-24 21:00 | disposition left against medical advice (07) | DRG 564 ==
LOC: D.M2 07-23 08:20 → D.SDCHOLD 07-23 08:20 → D.M2 07-23 14:08
PROVIDERS: Anesthesiology; Student in an Organized Health Care Education/Training Program; ADMIT Orthopaedic Surgery; ATTEND Orthopaedic Surgery
DX: T87.43 Infection of amputation stump, right lower extremity (principal); N18.6 End stage renal disease; I13.2 Hypertensive heart and chronic kidney disease with heart failure and with stage 5 chronic kidney disease, or end stage renal disease; Y83.8 Other surgical procedures as the cause of abnormal reaction of the patient, or of later complication, without mention of misadventure at the time of the procedure; E11.22 Type 2 diabetes mellitus with diabetic chronic kidney disease; I50.9 Heart failure, unspecified; I25.10 Atherosclerotic heart disease of native coronary artery without angina pectoris; D64.9 Anemia, unspecified; E11.51 Type 2 diabetes mellitus with diabetic peripheral angiopathy without gangrene; B19.20 Unspecified viral hepatitis C without hepatic coma; E87.5 Hyperkalemia; Z87.891 Personal history of nicotine dependence

== ENCOUNTER → 2018-07-22 15:59 | Outpatient (CLI) | payer MEDICAID ==
[2018-07-03 15:30] VITALS: BMI 35.9
== END | disposition home or self-care (01) ==
LOC: D.LABREF 15:59
PROVIDERS: ATTEND Orthopaedic Surgery
DX: Z89.511 Acquired absence of right leg below knee (principal)

== ENCOUNTER 2018-07-25 15:14 | Inpatient (IN) | payer MEDICAID ==
[~2018-07-25] VITALS: Ht 177.8 cm; Wt 109.6 kg
[2018-07-29 15:47] LABS: BASOPHILS 0.6 % (0-2); EOSINOPHILS 2.2 % (0-7); HEMATOCRIT 30.2 % (42.0-54.0); HEMOGLOBIN 9.8 g/dL (13.5-17.5); IMMATURE GRANULOCYTES 0.4 % (0-5); LYMPHOCYTES 13.2 % (15-50); MCH 32.3 pg (26.0-34.0); MCHC 32.5 g/dL (31.0-37.0); MCV 99.7 fL (80.0-100.0); MEAN PLATELET VOLUME 10.6 fL (7.4-10.4); MONOCYTES 10.7 % (2-11); NEUTROPHILS 72.9 % (40-80); PLATELET COUNT 204 10x3/uL (130-400); RBC 3.03 10x6/uL (4.20-6.10); RDW 15.6 % (11.5-14.5); WBC 6.8 10x3/uL (4.8-10.8)
[2018-07-29 16:13] LABS: ALBUMIN 3.4 g/dL (3.4-5.0); ANION GAP 14.7 mmol/L (8-16); BILIRUBIN - TOTAL 0.72 mg/dL (0.2-1.3); CALCIUM 8.7 mg/dL (8.5-10.1); CARBON DIOXIDE 27.8 mmol/L (21.0-32.0); CREATININE - SERUM 4.9 mg/dL (0.6-1.3); POTASSIUM - SERUM 4.5 mmol/L (3.5-5.1); PROTEIN - SERUM 8.6 g/dL (6.4-8.2)
[2018-07-30 06:34] VITALS: BP 159/78; BMI 35.2
--- NOTE | 2018-07-30 09:35 | NUR ---
VANCOMYCIN 1 GRAM IN 250CC IF NORMAL SALINE INFUSING ON ADMIT
[2018-07-30 10:27] VITALS: BP 119/62
[2018-07-30 12:19] VITALS: BP 117/52
[2018-07-30 16:00] VITALS: BMI 25.8
[2018-07-30 16:08] VITALS: BP 140/40
--- NOTE | 2018-07-30 19:52 | NUR ---
PATIENT LAYING IN BED, EYES CLOSED, CHEST RISING AND FALLING. EASY TO AROUSE. NO DISTRESS NOTED.
[2018-07-30 20:00] VITALS: BP 148/78
[2018-07-31 00:09] VITALS: BP 147/76
--- NOTE | 2018-07-31 00:27 | NUR ---
PATIENT LAYING IN BED, EYES CLOSED, CHEST RISING AND FALLING. NO DISTRESS NOTED.
[2018-07-31 04:00] VITALS: BP 153/93
[2018-07-31 06:04] LABS: BASOPHILS 0.6 % (0-2); EOSINOPHILS 2.6 % (0-7); HEMATOCRIT 28.8 % (42.0-54.0); HEMOGLOBIN 9.4 g/dL (13.5-17.5); IMMATURE GRANULOCYTES 0.4 % (0-5); LYMPHOCYTES 18.2 % (15-50); MCHC 32.6 g/dL (31.0-37.0); MEAN PLATELET VOLUME 10.6 fL (7.4-10.4); MONOCYTES 9.9 % (2-11); NEUTROPHILS 68.3 % (40-80); PLATELET COUNT 192 10x3/uL (130-400); RBC 2.94 10x6/uL (4.20-6.10); WBC 7.8 10x3/uL (4.8-10.8)
--- NOTE | 2018-07-31 06:32 | NUR ---
PATIENT LAYING IN BED. COMPLAINS OF PAIN IN BKA. PAIN MEDICATIONS GIVEN. WILL CONTINUE TO MONITOR. NO OTHER COMPLAINTS AT THIS TIME. NO DISTRESS NOTED.
[2018-07-31 07:04] LABS: ANION GAP 19.4 mmol/L (8-16); CALCIUM 9.4 mg/dL (8.5-10.1); CARBON DIOXIDE 23.2 mmol/L (21.0-32.0)
[2018-07-31 07:16] LABS: CREATININE - SERUM 7.5 mg/dL (0.6-1.3)
[2018-07-31 07:19] LABS: POTASSIUM - SERUM 6.6 mmol/L (3.5-5.1)
--- NOTE | 2018-07-31 07:42 | NUR ---
RESUMING PT CARE, PT IS LAYING IN BED WITH EYES CLOSED, RESPIRATIONS EVEN AND UNLABORED. CALL LIGHT IS IN REACH, WILL CONTINUE TO MONITOR AND FOLLOW PLAN OF CARE.
[2018-07-31 08:48] VITALS: BP 151/82
--- NOTE | 2018-07-31 10:05 | NUR ---
MARCELA FROM [facility] CALLED FOR ME TO CHANGE DR CONSULT FROM [facility] TO [facility], I SPOKE WITH DR GONZALEZ AND GOT THIS APPROVED TO CHANGE ORDER. ORDER NOTED.
--- NOTE | 2018-07-31 12:41 | NUR ---
I have reviewed this patient and I concur with the Shift Assessment completed by the Licensed Practical Nurse today this shift.
[2018-07-31 13:29] VITALS: Ht 177.8 cm; Wt 109.6 kg
--- NOTE | 2018-07-31 14:53 | NUR ---
PT IN DIALYSIS, NURSE CALLED SAYING HE IS IN PAIN. I TOOK HIM A NORCO FOR PAIN LEVEL OF 10, NOW AT A 5 AFTER PAIN MED IN.
[2018-07-31 16:17] VITALS: BP 146/75
--- NOTE | 2018-07-31 19:20 | NUR ---
WHILE PERFORMING SHIFT ASSESSMENT, PATIENT REPORTED HEMOVAC DRAIN TUBING HAD BEEN DISCONNECTED. WOUND TUBING WAS DISCONNECTED FROM THE CONNECTOR. TUBING AND CONNECTOR BOTH CLEANED WITH ALCOHOL SWABS AND REATTACHED. DRAIN EMPTIED WITH 50ML OF BLOODY DRAINAGE REMOVED. AIR WAS EXPELED FROM DRAIN AND FLATTEN BEFORE PLUG PLACED BACK INTO POUR SPOUT. NO OTHER COMPLAINTS AT THIS TIME. NO DISTRESS NOTED. DRESSING TO RIGHT BKA DRY, CLEAN AND INTACT.
[2018-07-31 20:00] VITALS: BP 136/79
--- NOTE | 2018-07-31 21:54 | NUR ---
PATIENT LAYING IN BED, EYES CLOSED, CHEST RISING AND FALLING. EASILY AROUSED TO NAME. NO COMPLAINTS AT THIS TIME. NO DISTRESS NOTED.
[2018-08-01] VITALS: BP 161/72
[2018-08-01 04:00] VITALS: BP 158/80
--- NOTE | 2018-08-01 04:42 | NUR ---
PATIENT LAYING IN BED, EYES CLOSED, CHEST RISING AND FALLING. NO DISTRESS NOTED.
--- NOTE | 2018-08-01 05:37 | NUR ---
I have reviewed this patient and I concur with the Shift Assessment completed by the Licensed Practical Nurse today this shift.
[2018-08-01 06:22] LABS: BASOPHILS 0.3 % (0-2); EOSINOPHILS 3.7 % (0-7); HEMATOCRIT 30.1 % (42.0-54.0); HEMOGLOBIN 9.9 g/dL (13.5-17.5); IMMATURE GRANULOCYTES 0.3 % (0-5); LYMPHOCYTES 19.3 % (15-50); MCH 32.1 pg (26.0-34.0); MCHC 32.9 g/dL (31.0-37.0); MCV 97.7 fL (80.0-100.0); MEAN PLATELET VOLUME 10.7 fL (7.4-10.4); MONOCYTES 10.4 % (2-11); PLATELET COUNT 191 10x3/uL (130-400); RBC 3.08 10x6/uL (4.20-6.10); RDW 16.4 % (11.5-14.5); WBC 7.3 10x3/uL (4.8-10.8)
[2018-08-01 06:53] LABS: ALBUMIN 2.7 g/dL (3.4-5.0); ANION GAP 17.7 mmol/L (8-16); BILIRUBIN - TOTAL 0.63 mg/dL (0.2-1.3); CALCIUM 9.3 mg/dL (8.5-10.1); CARBON DIOXIDE 25.8 mmol/L (21.0-32.0); CREATININE - SERUM 6.1 mg/dL (0.6-1.3); PROTEIN - SERUM 7.9 g/dL (6.4-8.2); VANCOMYCIN - RANDOM 20.5 ug/mL (10.0-20.0)
[2018-08-01 07:06] LABS: PHOSPHOROUS 10.1 mg/dL (2.5-4.9); POTASSIUM - SERUM 5.5 mmol/L (3.5-5.1)
[2018-08-01 07:50] VITALS: BP 130/58
[2018-08-01 11:30] VITALS: BP 155/56
[2018-08-01 15:39] VITALS: BP 142/63
--- NOTE | 2018-08-01 17:23 | NUR ---
I have reviewed this patient and I concur with the Shift Assessment completed by the Licensed Practical Nurse today this shift.
[2018-08-01 20:00] VITALS: BP 174/91
[2018-08-02] VITALS: BP 188/82
[2018-08-02 08:21] LABS: BASOPHILS 0.3 % (0-2); EOSINOPHILS 3.8 % (0-7); HEMATOCRIT 29.6 % (42.0-54.0); HEMOGLOBIN 10.2 g/dL (13.5-17.5); IMMATURE GRANULOCYTES 0.2 % (0-5); LYMPHOCYTES 16.4 % (15-50); MCH 33.2 pg (26.0-34.0); MCHC 34.5 g/dL (31.0-37.0); MCV 96.4 fL (80.0-100.0); MEAN PLATELET VOLUME 10.4 fL (7.4-10.4); MONOCYTES 14.1 % (2-11); NEUTROPHILS 65.2 % (40-80); PLATELET COUNT 190 10x3/uL (130-400); RBC 3.07 10x6/uL (4.20-6.10); RDW 15.6 % (11.5-14.5); WBC 6.6 10x3/uL (4.8-10.8)
[2018-08-02 09:16] LABS: ALBUMIN 2.8 g/dL (3.4-5.0); BILIRUBIN - TOTAL 0.49 mg/dL (0.2-1.3); CALCIUM 8.9 mg/dL (8.5-10.1); CARBON DIOXIDE 23.5 mmol/L (21.0-32.0); PROTEIN - SERUM 7.3 g/dL (6.4-8.2); VANCOMYCIN - RANDOM 15.6 ug/mL (10.0-20.0)
[2018-08-02 09:38] VITALS: BP 215/89
[2018-08-02 09:42] LABS: ANION GAP 20.6 mmol/L (8-16); CREATININE - SERUM 8.3 mg/dL (0.6-1.3); POTASSIUM - SERUM 4.1 mmol/L (3.5-5.1)
[2018-08-02 09:43] LABS: PHOSPHOROUS 12.9 mg/dL (2.5-4.9)
--- NOTE | 2018-08-02 09:48 | NUR ---
CRITICAL LAB CALLED. POSPHORUS IS 12.9 AND GLUCOSE IS 45. SHANNON VALENTINE [facility] UNDERGROUND SUPERVISOR NOTIFIED AND ORDERS RECEIVED. PT IS AWAKE. WARM AND DRY.
--- NOTE | 2018-08-02 10:30 | NUR ---
GAVE PT THE ORDERED 25ML OF D5 FOR GLUCOSE OF 45 IN AM LABS. BED LOW CALL LIGHT WITHIN REACH WILL CONTINUE TO MONITOR.
--- NOTE | 2018-08-02 11:00 | NUR ---
PT TRANSPORTED TO DIALYSIS AT THIS TIME. NO S/S OF DISTRESS PT VITALS STABLE. CALLED SURGERY REGUARDING PT'S PERSONAL ITEMS PHONE, CLOTHES, AND A SHOE. SURGERY STATES THEY DO NOT HAVE. WILL CONTINUE TO LOOK.
--- NOTE | 2018-08-02 14:08 | NUR ---
Nutrition follow-up: Diet: Renal PO intake poor at this time Labs reviewed; PO4 critical high wt: 180# Will offer nutritional supplemets RDN following.
[2018-08-02 20:00] VITALS: BP 160/82
--- NOTE | 2018-08-02 21:05 | NUR ---
RESUMING PT CARE. PT IS ALERT LAYING IN BED. NO C/O VOICED. NO S/S OF DISTRESS NOTED. BED IN LOW POSITION WITH CALL LIGHT IN REACH. WILL CONTINUE TO MONITOR PT AND FOLLOW PLAN OF CARE.
[2018-08-03] VITALS: BP 159/57
--- NOTE | 2018-08-03 01:27 | NUR ---
I have reviewed this patient and I concur with the Shift Assessment completed by the Licensed Practical Nurse today this shift.
[2018-08-03 04:00] VITALS: BP 166/92
--- NOTE | 2018-08-03 07:30 | NUR ---
REPORT RECIEVED AND MORNING ROUNDING COMPLETE. PT LAYING IN SUPINE POSITION, BREATHING SHALLOW AND EVEN NO S/SX OF DISTRESS. CALL LIGHT WITHIN REACH AND BED IN LOWEST POSITION.
[2018-08-03 07:32] LABS: ALBUMIN 2.6 g/dL (3.4-5.0); ANION GAP 15.9 mmol/L (8-16); BILIRUBIN - TOTAL 0.56 mg/dL (0.2-1.3); CALCIUM 9.2 mg/dL (8.5-10.1); CARBON DIOXIDE 27.9 mmol/L (21.0-32.0); CREATININE - SERUM 7.1 mg/dL (0.6-1.3); POTASSIUM - SERUM 3.8 mmol/L (3.5-5.1); PROTEIN - SERUM 7.8 g/dL (6.4-8.2); VANCOMYCIN - RANDOM 16.7 ug/mL (10.0-20.0)
[2018-08-03 07:40] LABS: PHOSPHOROUS 9.9 mg/dL (2.5-4.9)
[2018-08-03 08:54] VITALS: BP 141/61
[2018-08-03 11:41] VITALS: BP 126/52
--- NOTE | 2018-08-03 11:53 | NUR ---
I have reviewed this patient and I concur with the Shift Assessment completed by the Licensed Practical Nurse today this shift.
[2018-08-03 20:00] VITALS: BP 157/79
--- NOTE | 2018-08-03 21:59 | NUR ---
INITIAL ROUNDS COMPLETED AT 1915 HRS. PT RESTING WITH EYES CLOSED. RESP EVEN AND REGULAR. ASSESSMENT COMPLETED AT 2004 HRS. VSS. PT AWAKES EASILY TO VERBAL STIMULI. IV TO R HAND SL. FISTULA TO L ARM WITH GOOD BRUIT AND THRILL. LUNGS CTA. KENYA WRAP TO RBKA INTACT. FSBS DONE PER PT REQUEST WITH 207 THE RESULT. PM MEDS GIVEN. PT CURRENTLY RESTING WITH EYES CLOSED ON L SIDE. RESP EVEN AND REGULAR. SR UP X2, CALL LIGHT WITHIN REACH.
[2018-08-04] VITALS: BP 157/79
--- NOTE | 2018-08-04 00:03 | NUR ---
PT RESTING WITH EYES CLOSED. RESP EVEN AND REGULAR. SR UP X2, CALL LIGHT WITHIN REACH.
--- NOTE | 2018-08-04 02:11 | NUR ---
PT RESTING WITH EYES CLOSED ON L SIDE. RESP EVEN AND REGULAR. SR UP X2, CALL LIGHT WITHIN REACH.
[2018-08-04 04:00] VITALS: BP 148/74
[2018-08-04 04:01] LABS: ALBUMIN 2.6 g/dL (3.4-5.0); BILIRUBIN - TOTAL 0.58 mg/dL (0.2-1.3); CALCIUM 9.1 mg/dL (8.5-10.1); CARBON DIOXIDE 25.1 mmol/L (21.0-32.0); CREATININE - SERUM 7.9 mg/dL (0.6-1.3); PROTEIN - SERUM 7.5 g/dL (6.4-8.2); VANCOMYCIN - RANDOM 28.7 ug/mL (10.0-20.0)
[2018-08-04 04:02] LABS: ANION GAP 18.4 mmol/L (8-16); POTASSIUM - SERUM 4.5 mmol/L (3.5-5.1)
--- NOTE | 2018-08-04 04:09 | NUR ---
PT RESTING WITH EYES CLOSED. RESP EVEN AND REGULAR. SR UP X2, CALL LIGHT WITHIN REACH.
--- NOTE | 2018-08-04 06:38 | NUR ---
VSS THROUGHOUT NIGHT. PT RESTED WELL DURING SHIFT. DENIED ANY DISCOMFORT. NEEDS MET; WILL CONTINUE TO MONITOR.
--- NOTE | 2018-08-04 07:25 | NUR ---
REPORT RECIEVED AND MORNING ROUNDING COMPLETE, PT LAYING IN BED EYES CLOSED BREATHING EVEN AND UNLABORED. PT LAYIN ON HIS BACK AND RIGHT LEG/STOMP ON PILLOW NO S;/SX OF DISTRESS. CALL LIGTH WITHIN REACH AND BED IN LOWEST POSITION.
[2018-08-04 07:57] VITALS: BP 178/75
[2018-08-04 11:57] VITALS: BP 158/74
--- NOTE | 2018-08-04 15:54 | NUR ---
I have reviewed this patient and I concur with the Shift Assessment completed by the Licensed Practical Nurse today this shift.
[2018-08-04 15:57] VITALS: BP 166/72
--- NOTE | 2018-08-04 16:32 | NUR ---
CHANGED PT'S BANDAGE ON RIGHT STOMP. NO S/SX OF INFESCTION. SKIN COOL AND WNL COLOR. PT HAS NO NEEDS AT THIS TIME CALL LIGHT WITHIN REACH
--- NOTE | 2018-08-04 20:21 | NUR ---
INITIAL ROUNDS COMPLETED AT 1910 HRS. PT DENIED ANY DISCOMFORT. ASSESSMENT COMPLETED AT 1945 HRS. ZYVOX IVAB INFUSED. IV TO R HAND SL'D. ALERT AND ORIENTED TO PERSON, PLACE AND TIME. OWEN. Ne ARM FISTULA WITH GOOD BRUIT AND THRILL. GIANFRANCOKA KENYA WRAPPED. WILL CONTINUE TO MONITOR. SR UP X2, CALL LIGHT WITHIN REACH.
[2018-08-04 20:35] VITALS: BP 163/80
--- NOTE | 2018-08-04 21:32 | NUR ---
PM MEDS GIVEN. PM SNACK SERVED. PT DENIES ANY DISCOMFORT. SR UP X2, CALL LIGHT WITHIN REACH.
[2018-08-05 01:13] VITALS: BP 172/82
--- NOTE | 2018-08-05 01:26 | NUR ---
PT RSTING WITH EYES CLOSED. RESP EVEN AND REGULAR. SR UP X2, CALL LIGHT WITHIN REACH.
--- NOTE | 2018-08-05 03:02 | NUR ---
PT AWAKE; DENIES ANY DISCOMFORT. CALL LIGHT WITHIN REACH.
--- NOTE | 2018-08-05 04:53 | NUR ---
PT AWAKE; DENIES ANY DISCOMFORT. CALL LIGHT WITHIN REACH.
[2018-08-05 05:22] LABS: ALBUMIN 2.7 g/dL (3.4-5.0); ANION GAP 21.2 mmol/L (8-16); BILIRUBIN - TOTAL 0.51 mg/dL (0.2-1.3); CALCIUM 9.1 mg/dL (8.5-10.1); CREATININE - SERUM 8.4 mg/dL (0.6-1.3); PHOSPHOROUS 10.2 mg/dL (2.5-4.9); POTASSIUM - SERUM 4.2 mmol/L (3.5-5.1); PROTEIN - SERUM 7.1 g/dL (6.4-8.2); VANCOMYCIN - RANDOM 21.5 ug/mL (10.0-20.0)
[2018-08-05 05:26] VITALS: BP 178/80
--- NOTE | 2018-08-05 06:29 | NUR ---
PT DENIED ANY DISCOMFORT DURING SHIFT. NEEDS MET; WILL CONTINUE TO MONITOR.
--- NOTE | 2018-08-05 07:17 | NUR ---
ASSESSMENT DONE. DENIES NEEDS.
[2018-08-05 08:16] VITALS: BP 136/74
--- NOTE | 2018-08-05 10:04 | NUR ---
I have reviewed this patient and I concur with the Shift Assessment completed by the Licensed Practical Nurse today this shift.
[2018-08-05 11:36] VITALS: BP 161/69
[2018-08-05 15:40] VITALS: BP 120/50
--- NOTE | 2018-08-05 17:23 | NUR ---
WITHOUT CHANGES OR DISTRESS NOTED AT THIS TIME. DENIES NEEDS
--- NOTE | 2018-08-05 19:39 | NUR ---
PT STATES BANDAGE ON RIGHT STOMP FELL OFF WHEN WAS TRYING TO CHANGE POSTION IN BED. NO S/S OF BLEEDING NOTED. PT CURRENTLY RECIEVING DIALYSIS. WILL CPOC.
[2018-08-05 20:00] VITALS: BP 173/81
--- NOTE | 2018-08-05 22:00 | NUR ---
DIALYSIS COMPLETED. 1700 WAS DIALYZED. BP @ THIS 163/67. NO S/S OF DISTRESS. PT C/O OF PAIN ON HIS STOMP. NORCO 7.5/325MG GIVEN ALONGSIDE BP MEDS. PT VOICED THANKS. STOMP STILL EXPOSED AT THIS TIME. PT STATES HE DOES NOT WANT IT TO BE WRAPPED UP AT THIS TIME. STATES HE WANTED TO HAVE A BED BATH BEFORE THE DRESSING CHANGE. WILL CPOC. CL IN REACH, BED IN LOW, SR UP X2.
[2018-08-06] VITALS: BP 146/77
--- NOTE | 2018-08-06 00:18 | NUR ---
DRESSING CHANGED. XEROFORM APPLIED WITH 4X4 KENYA DRESSING. PT TOLERATE WELL. SANDWICH PROVIDED PER PT REQUEST. WILL CPOC.
[2018-08-06 04:00] VITALS: BP 171/79
[2018-08-06 06:30] LABS: ANION GAP 17.3 mmol/L (8-16); BILIRUBIN - TOTAL 0.39 mg/dL (0.2-1.3); CALCIUM 9.1 mg/dL (8.5-10.1); CARBON DIOXIDE 24.9 mmol/L (21.0-32.0); CREATININE - SERUM 7.3 mg/dL (0.6-1.3); POTASSIUM - SERUM 4.2 mmol/L (3.5-5.1); PROTEIN - SERUM 7.4 g/dL (6.4-8.2)
[2018-08-06 06:44] LABS: BASOPHILS 0.4 % (0-2); EOSINOPHILS 2.4 % (0-7); HEMATOCRIT 31.5 % (42.0-54.0); HEMOGLOBIN 10.3 g/dL (13.5-17.5); IMMATURE GRANULOCYTES 0.2 % (0-5); MCH 31.5 pg (26.0-34.0); MCHC 32.7 g/dL (31.0-37.0); MCV 96.3 fL (80.0-100.0); MEAN PLATELET VOLUME 10.6 fL (7.4-10.4); MONOCYTES 10.3 % (2-11); NEUTROPHILS 55.7 % (40-80); PLATELET COUNT 172 10x3/uL (130-400); RBC 3.27 10x6/uL (4.20-6.10); WBC 5.5 10x3/uL (4.8-10.8)
[2018-08-06] MEDS ORDERED: ZYVOX600 MG PO (07:16)
[2018-08-06] MEDS ORDERED: HYDROCODON-ACE1 EAC7 PO (07:17)
[2018-08-06 08:08] VITALS: BP 132/71
[2018-08-06 08:13] VITALS: BP 161/45
--- NOTE | 2018-08-06 08:50 | NUR ---
PT RESTING IN BED, AM MEDICATIONS GIVEN ORDERED, PT TOLERATED WELL. ADVISED PT HE WILL GET TO GO HOME TODAY, PT HAPPY. DENIES ANY FURTHER NEEDS AT THIS TIME, WILL CONT TO FOLLOW POC
[2018-08-06 11:41] VITALS: BP 180/55
--- NOTE | 2018-08-06 14:12 | MORECARE ---
CASE MANAGEMENT DISCHARGE SUMMARY PATIENT: NADIA WHITT UNIT: [id number] ADM DATE: 07/30/18 AGE: 52 : 69 SEX: M ROOM/BED: D.4143 AUTHOR: BRIAN ELLSWORTH PHYSICIAN: REFERRING PHYSICIAN: JOSY GONZALEZ MD DATE OF SERVICE: 08/06/18 Discharge Plan Patient Name: NADIA WHITT [facility] [facility] 1965 Planned Disposition: Home with Home Health Anticipated Discharge Date: 08/06/18 Discharge Date: Expected LOS: 7 Initial Reviewer: [email or web address] Initial Review Date: 08/06/2018 Generated: 08/06/18 3:12 pm Comments DCP- Discharge Planning Updated by [email or web address]: Valentina Mendez on 08/06/18 12:[address] RECEIVED ORDER TO SEE IF THE PATIENT WOULD BE ABLE TO AFFORD HIS 10 DAY SUPPLY OF ANTIBIOTICS. PATIENT HAS MEDICAID. PER THE DISCHARGE, THE MED WAS ESCRIBED TO [facility] [address]. I PLACED A CALL TO [facility] [phone]. SPOKE WITH LYNDSAY AMANDA. THE TOTAL COST FOR THE PATIENT IS $3.00. External Providers External Provider: [facility] Next Contact Date: 08/06/2018 Service Request Date: Service Type: Resolution: Reviewer: Comments: Coverage Notice Reviewer: [email or web address] - Jacek [place] Notice Issued Date-Time: 08/06/2018 13:25 Notice Type: Patient Choice Letter Notice Delivered To: Patient Relationship to Patient: Watch Inspector Name: Delivery Method: HAND - Hand Delivered [place] Days: Prior Verbal Notification: Recipient Understood Notice: Yes Recipient Signature: Yes Med Rec Note Co-signed by Attending: Coverage Notice Comment: Fangxin[facility]i [facility] Patient Name: NADIA WHITT Page 34212 at 1412 All edits/amendments must be made on the electronic document DICTATION DATE: 08/06/18 1412 RVDA MASTER CERTIFIED RV TECHNICIAN: ANJU 08/06/18 1412 RPT#: [id number] DC DATE: STATUS: ADM IN [facility] [address] [place] [address] END OF REPORT
--- NOTE | 2018-08-06 14:20 | MORECARE ---
CASE MANAGEMENT DISCHARGE SUMMARY PATIENT: NADIA WHITT UNIT: [id number] ADM DATE: 07/30/18 AGE: 52 : 69 SEX: M ROOM/BED: D.2327 AUTHOR: JODEEDOC PHYSICIAN: REFERRING PHYSICIAN: JOSY GONZALEZ MD DATE OF SERVICE: 08/06/18 Discharge Plan Patient Name: NADIA WHITT Facility: [facility]:[place] : 1965 Planned Disposition: Home with Home Health Anticipated Discharge Date: 08/06/18 Discharge Date: Expected LOS: 7 Initial Reviewer: [id number] Initial Review Date: 08/06/2018 Generated: 08/06/18 3:20 pm Comments DCP- Discharge Planning Updated by [id number]: Jacek Leon on 08/06/18 1:[address] Patient Name: NADIA WHITT Admission Status: Elective Accout number: [id number] Admission Date: 07-30-2018 : 1965 Admission Diagnosis:DEHISCENCE OF AMPUTATION STUMP Attending: JOSY GONZALEZ Current LOS: 7 Anticipated DC Date: 08-06-2018 Planned Disposition: Home with Home Health Primary Insurance: MEDICAID [place] PLANNED EXTERNAL PROVIDER: [facility] Discharge Planning Comments: CM RECEIVED HOME HEALTH RODER; CM MET WITH PT IN ROOM TO DISCUSS DISCHARGE PLANNING AND NEEDS. PT REPORTS LIVING AT HOME INDEPENDENTLY AND ALONE. PT HAS GLUCOMETER AND WHEELCHAIR WITH NO MEDICAL EQUIPMENT PROVIDER PREFERENCE. PT HAS NO OUTSIDE SERVICES ASSISTING IN THE HOME. CM DISCUSSED AVAILABILITY OF HOME HEALTH, REHAB SERVICES AND MEDICAL EQUIPMENT. PT WILL ACCEPT [facility] FOR THE SUPPLIES, BUT DOES HIS OWN WOUND CARE AND DOES NOT NEED THEM EVERY WEEK. PT REPORTS HIS FRIENDS HAVE HIS TRUCK, WALLET AND MONEY AND HE IS CALLING THEM TO TRY TO GET TH EM TO PICK HIM UP FOR DISCHARGE HOME. HOME HEALTH PROVIDER LISTING GIVEN, PT SIGNED CHOICE FOR [facility] HE HAS USED THEM IN THE PAST. CM CALLED [facility], , SPOKE TO RONA, REFERRAL PROVIDED, PT PLACED ON SCHEDULE FOR TOMORROW. CM FAXED REFERRAL AND DISCHARGE INFORMATION TO [facility] AT [phone]. PT NOTIFIED WHO DENIES FURHTER NEEDS. Framing Mill Operator Helper: Jacek Leon DCP- Discharge Planning Updated by [id number]: Valentina Mendez on 08/06/18 12:[address] RECEIVED ORDER TO SEE IF THE PATIENT WOULD BE ABLE TO AFFORD HIS 10 DAY SUPPLY OF ANTIBIOTICS. PATIENT HAS MEDICAID. PER THE DISCHARGE, THE MED WAS ESCRIBED TO [facility] ON [address]. I PLACED A CALL TO [facility] [phone]. SPOKE WITH TREASURE PHARMACIST. THE TOTAL COST FOR THE PATIENT IS $3.00. DCPIA - Discharge Planning Initial Assessment Updated by [id number]: Jacek Leon on 08/06/18 2:14 pm * Is the patient Alert and Oriented? Yes * How many steps to enter\exit or inside your home? 12 * PCP DR. WEBB * Pharmacy [facility] * Preadmission Environment Home Alone * ADLs Independent * Equipment Glucometer Wheelchair * Other Equipment NO MEDICAL EQUIPMENT PROVIDER PREFERENCE * List name and contact numbers for known caregivers / representatives who currently or will assist patient after discharge: LETICIA SARAVIA, FATHER, * Verbal permission to speak to the caregivers and representatives has been obtained from the patient. N/A * Community resources currently utilized None * Please name any agencies selected above. OUTPATIENT DIALYSIS, [facility], MWF, [address], DRIVE SELF. * Additional services required to return to the preadmission environment? No * Can the patient safely return to the preadmission environment? Yes * Has this patient been hospitalized within the prior 30 days at any hospital? No Coverage Notice Reviewer: [id number] - Jacek Leon Notice Issued Date-Time: 08/06/2018 13:25 Notice Type: Patient Choice Letter Notice Delivered To: Patient Relationship to Patient: District Manager Primary Care Sales Name: Delivery Method: HAND - Hand Delivered Ellyn Days: Prior Verbal Notification: Recipient Understood Notice: Yes Recipient Signature: Yes Med Rec Note Co-signed by Attending: Coverage Notice Comment: [facility] Last DP export: 08/06/18 1:12 p Patient Name: NADIA WHITT Page [id number] at 1420 All edits/amendments must be made on the electronic document DICTATION DATE: 08/06/18 1420 OPERATIONS CHIEF: ANJU 08/06/18 1420 RPT#: [id number] DC DATE: STATUS: ADM IN [facility] [address] [place] [address] END OF REPORT
--- NOTE | 2018-08-06 14:32 | NUR ---
DISCHARGE INSTRUCTIONS REVIEWED WITH PT, ALL QUESTIONS ANSWERED. PIV REMOVED WITH CATHETER TIP INTACT. PT STATES HE HAS NO WAY HOME AND HAS NO MONEY FOR A TAXI. NOTIFIED CM
--- NOTE | 2018-08-06 15:06 | NUR ---
PT LEFT VIA WHEELCHAIR TO FRONT OF HOSPITAL, WAITING ON TAXI TO ARRIVE
--- NOTE | 2018-08-06 15:25 | MORECARE ---
CASE MANAGEMENT DISCHARGE SUMMARY PATIENT: NADIA WHITT UNIT: [id number] ADM DATE: 07/30/18 AGE: 52 : 69 SEX: M ROOM/BED: D.7785 AUTHOR: BRIAN ELLSWORTH PHYSICIAN: REFERRING PHYSICIAN: JOSY GONZALEZ MD DATE OF SERVICE: 08/06/18 Discharge Plan Patient Name: NADIA WHITT Facility: [facility]:[place] : 1965 Planned Disposition: Home with Home Health Anticipated Discharge Date: 08/06/18 Discharge Date: 08/06/2018 Expected LOS: 7 Initial Reviewer: [email or web address] Initial Review Date: 08/06/2018 Generated: 08/06/18 4:24 pm Comments DCP- Discharge Planning Updated by [id number]: Jacek Meyer on 08/06/18 2:[address] Patient Name: NADIA WHITT Admission Status: Elective Accout number: [id number] Admission Date: 07-30-2018 : 1965 Admission Diagnosis:DEHISCENCE OF AMPUTATION STUMP Attending: JOSY GONZALEZ Current LOS: 7 Anticipated DC Date: 08-06-2018 Planned Disposition: Home with Home Health Primary Insurance: MEDICAID [place] PLANNED EXTERNAL PROVIDER: [facility] Discharge Planning Comments: CM RECEIVED HOME HEALTH RODER; CM MET WITH PT IN ROOM TO DISCUSS DISCHARGE PLANNING AND NEEDS. PT REPORTS LIVING AT HOME INDEPENDENTLY AND ALONE. PT HAS GLUCOMETER AND WHEELCHAIR WITH NO MEDICAL EQUIPMENT PROVIDER PREFERENCE. PT HAS NO OUTSIDE SERVICES ASSISTING IN THE HOME. CM DISCUSSED AVAILABILITY OF HOME HEALTH, REHAB SERVICES AND MEDICAL EQUIPMENT. PT WILL ACCEPT PENDING SALE TO [facility] FOR THE SUPPLIES, BUT DOES HIS OWN WOUND CARE AND DOES NOT NEED THEM EVERY WEEK. PT REPORTS HIS FRIENDS HAVE HIS TRUCK, WALLET AND MONEY AND HE IS CALLING THEM TO TRY TO GET TH EM TO PICK HIM UP FOR DISCHARGE HOME. HOME HEALTH PROVIDER LISTING GIVEN, PT SIGNED CHOICE FOR [facility] HE HAS USED THEM IN THE PAST. CM CALLED [facility], , SPOKE TO RONA, REFERRAL PROVIDED, PT PLACED ON SCHEDULE FOR TOMORROW. CM FAXED REFERRAL AND DISCHARGE INFORMATION TO [facility] AT [phone]. PT NOTIFIED WHO DENIES FURHTER NEEDS. Wood Crafter: Jacek Meyer Appended by Jacek Meyer on 08/06/2018 15:19 CDT: CM SPOKE TO BEDSIDE NURSE, PT HAS BEEN UNABLE TO FIND A RIDE HOME. CM SPOKE TO PT IN ROOM. PT HAS NO MONEY FOR TAXI, HIS WHEELCHAIR IS IN HIS APARTMENT AND HIS TRUCK IS MISSING WITH HIS "SO CALLED FRIEND". PT REPORTS HAVING NO OTHER PERSON TO CALL FOR TRANSPORT ASSISTANCE. PT REPORTS ABILITY TO RIDE IN A CAR AND HAS KEYS TO GET INTO HIS HOUSE. CM SPOKE TO DIRECTOR CARRIE WHO AUTHORIZED TAXI SERVICES FOR PT TO GET HOME TODAY. CM CALLED [facility], [phone], RECEIVED QUOTE OF $8. CM APPROVED PER DIRECTOR CARRIE. PT AND BEDSIDE NURSE NOTIFIED. JACEK MEYER, CASE MANAGEMENT DCP- Discharge Planning Updated by [id number]: Valentina Andrea on 08/06/18 12:[address] RECEIVED ORDER TO SEE IF THE PATIENT WOULD BE ABLE TO AFFORD HIS 10 DAY SUPPLY OF ANTIBIOTICS. PATIENT HAS MEDICAID. PER THE DISCHARGE, THE MED WAS ESCRIBED TO [facility] ON [address]. I PLACED A CALL TO [facility] [phone]. SPOKE WITH LYNDSAY AMANDA. THE TOTAL COST FOR THE PATIENT IS $3.00. DCPIA - Discharge Planning Initial Assessment Updated by [id number]: Jacek Meyer on 08/06/18 2:14 pm * Is the patient Alert and Oriented? Yes * How many steps to enter\\exit or inside your home? 12 * PCP DR. WEBB * Pharmacy [facility] * Preadmission Environment Home Alone * ADLs Independent * Equipment Glucometer Wheelchair * Other Equipment NO MEDICAL EQUIPMENT PROVIDER PREFERENCE * List name and contact numbers for known caregivers / representatives who currently or will assist patient after discharge: LETICIA SARAVIA, FATHER, * Verbal permission to speak to the caregivers and representatives has been obtained from the patient. N/A * Community resources currently utilized None * Please name any agencies selected above. OUTPATIENT DIALYSIS, [facility], MWF, [address], DRIVE SELF. * Additional services required to return to the preadmission environment? No * Can the patient safely return to the preadmission environment? Yes * Has this patient been hospitalized within the prior 30 days at any hospital? No Coverage Notice Reviewer: [id number] - Jacek Meyer Notice Issued Date-Time: 08/06/2018 13:25 Notice Type: Patient Choice Letter Notice Delivered To: Patient Relationship to Patient: Capture Manager Name: Delivery Method: HAND - Hand Delivered Ellyn Days: Prior Verbal Notification: Recipient Understood Notice: Yes Recipient Signature: Yes Med Rec Note Co-signed by Attending: Coverage Notice Comment: [facility] Last DP export: 08/06/18 1:20 p Patient Name: NADIA WHITT Page 23288 at 1525 All edits/amendments must be made on the electronic document DICTATION DATE: 08/06/18 1524 RV REPAIR TECHNICIAN: ANJU 08/06/18 1524 RPT#: [id number] DC DATE:08/06/18 STATUS: DIS IN [address] [place] [address] END OF REPORT
[2018-08-06 16:08] LABS: AEROBE ID Final report (())
== END 2018-08-06 15:08 | disposition home health service (06) | DRG 474 ==
LOC: D.SDCHOLD 07-30 05:40 → D.M2 07-30 05:40 → D.SDCHOLD 07-30 07:30 → D.M2 07-30 10:14
PROVIDERS: Internal Medicine Nephrology; Student in an Organized Health Care Education/Training Program; ADMIT Orthopaedic Surgery; ATTEND Orthopaedic Surgery
PROC: 0Y6H0Z3 Detachment at Right Lower Leg, Low, Open Approach (ICD-10-PCS; principal; 2018-07-30 07:30)
PROC: 5A1D70Z Performance of Urinary Filtration, Intermittent, Less than 6 Hours Per Day (ICD-10-PCS; 2018-07-31)
DX: T87.43 Infection of amputation stump, right lower extremity (principal); N18.6 End stage renal disease; I13.2 Hypertensive heart and chronic kidney disease with heart failure and with stage 5 chronic kidney disease, or end stage renal disease; T87.81 Dehiscence of amputation stump; Y83.9 Surgical procedure, unspecified as the cause of abnormal reaction of the patient, or of later complication, without mention of misadventure at the time of the procedure; E11.22 Type 2 diabetes mellitus with diabetic chronic kidney disease; I50.9 Heart failure, unspecified; Z99.2 Dependence on renal dialysis; E87.5 Hyperkalemia; D64.9 Anemia, unspecified; B95.7 Other staphylococcus as the cause of diseases classified elsewhere; Z16.21 Resistance to vancomycin; Z72.0 Tobacco use

== ENCOUNTER 2018-09-11 14:23 | Observation (INO) | payer MEDICAID ==
[~2018-09-11] VITALS: Ht 177.8 cm; Wt 115.7 kg
[2018-09-11 05:27] VITALS: BP 206/118
[~2018-09-11 14:23] MED LIST changes: +ZYVOX600 MG PO
--- NOTE | 2018-09-11 14:38 | NUR ---
FSBS= 409MG/DL
--- NOTE | 2018-09-11 14:39 | NUR ---
400CC URINE OUTPUT, URINE TO LAB
[2018-09-11 14:43] LABS: BASOPHILS 0.5 % (0-2); EOSINOPHILS 1.6 % (0-7); HEMATOCRIT 26.6 % (42.0-54.0); HEMOGLOBIN 8.7 g/dL (13.5-17.5); IMMATURE GRANULOCYTES 0.9 % (0-5); LYMPHOCYTES 17.7 % (15-50); MCH 31.5 pg (26.0-34.0); MCHC 32.7 g/dL (31.0-37.0); MCV 96.4 fL (80.0-100.0); MEAN PLATELET VOLUME 10.2 fL (7.4-10.4); MONOCYTES 8.1 % (2-11); NEUTROPHILS 71.2 % (40-80); PLATELET COUNT 174 10x3/uL (130-400); RBC 2.76 10x6/uL (4.20-6.10); RDW 15.1 % (11.5-14.5); WBC 5.7 10x3/uL (4.8-10.8)
--- NOTE | 2018-09-11 14:45 | NUR ---
TO CT VIA STRETCHER WITH PROGRAM CHECKER
[2018-09-11 14:56] LABS: APPEARANCE CLEAR (CLEAR); COLOR YELLOW (YELLOW); NITRITE NEGATIVE (NEGATIVE); PROTEIN 1+ mg/dL (NEGATIVE); SPECIFIC GRAVITY 1.015 (1.005-1.020)
[2018-09-11 14:57] LABS: BILIRUBIN NEGATIVE (NEGATIVE); GLUCOSE 500 mg/dL (NEGATIVE); KETONE NEGATIVE (NEGATIVE); UROBILINOGEN NORMAL (NORMAL)
[2018-09-11 14:57] LABS: APTT 30.5 SECONDS (22.8-39.4); INR 1.14 (0.85-1.17); KETONE - SERUM NEGATIVE (NEGATIVE); PROTIME 14.1 SECONDS (11.6-15.0)
[2018-09-11 14:58] LABS: RED CELLS - URINE 0-5 /hpf (0-5); WHITE CELLS - URINE 0-5 /hpf (0-5)
--- NOTE | 2018-09-11 15:00 | NUR ---
PT HAS SUTURES AT [facility] FISTULA SITE. PT REPORTS "MY FISTULA WAS KINKED AND THEY FIXED IT AT DIALYSIS TODAY" SITE D/I WITHOUT S/SX OF INFECTION. DRY DRSG APPLIED
[2018-09-11 15:06] LABS: ALBUMIN 2.7 g/dL (3.4-5.0); ALKALINE PHOSPHATASE 169 U/L (46-116); ALT (SGPT) 33 U/L (10-68); BILIRUBIN - TOTAL 0.33 mg/dL (0.2-1.3); CALC OSMOLALITY 305 mosm/kg (275-300); CALCIUM 8.9 mg/dL (8.5-10.1); CARBON DIOXIDE 24.5 mmol/L (21.0-32.0); CHLORIDE - SERUM 102 mmol/L (98-107); CREATINE KINASE 114 UL (21-232); CREATININE - SERUM 7.7 mg/dL (0.6-1.3); POTASSIUM - SERUM 3.4 mmol/L (3.5-5.1); SODIUM 139 mmol/L (136-145); UREA NITROGEN 39 mg/dL (7-18); eGFR NON AFRICAN AMERICAN 8 mL/min (90-120)
[2018-09-11 15:17] LABS: GLUCOSE 448 mg/dL (74-106)
--- NOTE | 2018-09-11 16:04 | NUR ---
LEFT ELBOW ABRASIONS CLEANSED WITH WOUND CLEANSER, DRIED AND DRY DRSG APPLIED
[2018-09-11 16:05] VITALS: BP 194/78
[2018-09-11 16:13] LABS: UDS - AMPHET POSITIVE QUAL (NEGATIVE); UDS - BARB NEGATIVE QUAL (NEGATIVE); UDS - BENZO NEGATIVE QUAL (NEGATIVE); UDS - COCAINE NEGATIVE QUAL (NEGATIVE); UDS - OPIATE NEGATIVE QUAL (NEGATIVE); UDS - PCP NEGATIVE QUAL (NEGATIVE); UDS - THC NEGATIVE QUAL (NEGATIVE)
--- NOTE | 2018-09-11 16:15 | NUR ---
XRAY AT BS FOR LEFT ELBOW XRAY
--- NOTE | 2018-09-11 16:20 | NUR ---
FSBS= 257 MG/DL DR ESTEVEZ NOTIFIED
--- NOTE | 2018-09-11 17:07 | NUR ---
REPORT CALLED TO SANDRA TOLBERT BY SBAR FORMAT
[2018-09-11 17:23] VITALS: BP 154/88
--- NOTE | 2018-09-11 17:23 | NUR ---
TRANSPORTED TO ROOM #6990 CONDITION STABLE
[2018-09-11 17:38] VITALS: BP 154/88; BMI 36.6
--- NOTE | 2018-09-11 19:00 | NUR ---
EVENING ROUNDS COMPLETED. REPORT RECEIVED. PT SITTING UP IN BED WITH EYES OPEN, RR EVEN AND UNLABORED. TELEMETRY RE ESTABLISHED. INTRODUCED SELF TO PT. PT DENIES FURTHER NEEDS AT THIS TIME. REQUESTED ORDERED ALPRAZOLAM BE BROUGHT TO HIM AT BED TIME. NO S/S OF DISTRESS NOTED. CALL LIGHT INR EACH. WILL CTM.
--- NOTE | 2018-09-11 21:00 | NUR ---
EVENING ROUNDS COMPLETED. REPORT RECEIVED. PT SITTING UP IN BED WITH EYES OPEN, RR EVEN AND UNLABORED. INTRODUCED SELF TO PT. PT DENIES FURTHER NEEDS AT THIS TIME. BED IN LOW POSITION. 164 BLOOD SUGAR NOT TREATED PER SLIDING SCALE. PT STATES HE DOES NOT ADMINISTER INSULIN UNLESS BLOOD SUGAR EXCEEDS 500. EDUCATED PT ON DIABETES MANAGEMENT. UNABLE TO INTERPRATE PT UNDERSTANDING.
[2018-09-12 04:00] VITALS: BP 190/92
[2018-09-12 07:22] LABS: BASOPHILS 0.5 % (0-2); EOSINOPHILS 2.1 % (0-7); HEMATOCRIT 26.4 % (42.0-54.0); HEMOGLOBIN 8.6 g/dL (13.5-17.5); IMMATURE GRANULOCYTES 0.7 % (0-5); LYMPHOCYTES 19.3 % (15-50); MCH 31.4 pg (26.0-34.0); MCHC 32.6 g/dL (31.0-37.0); MCV 96.4 fL (80.0-100.0); MONOCYTES 7.2 % (2-11); NEUTROPHILS 70.2 % (40-80); PLATELET COUNT 177 10x3/uL (130-400); RBC 2.74 10x6/uL (4.20-6.10); RDW 15.1 % (11.5-14.5); WBC 5.8 10x3/uL (4.8-10.8)
[2018-09-12 07:42] LABS: ALBUMIN 2.6 g/dL (3.4-5.0); BILIRUBIN - TOTAL 0.45 mg/dL (0.2-1.3); CARBON DIOXIDE 20.6 mmol/L (21.0-32.0); POTASSIUM - SERUM 3.6 mmol/L (3.5-5.1); PROTEIN - SERUM 6.9 g/dL (6.4-8.2)
--- NOTE | 2018-09-12 07:45 | NUR ---
A/A/OX4. RESTING QUIETLY IN BED. DENIES ANY PAIN OR DISCOMFORT AT THIS TIME AND VOICES NO REQUESTS. ASSESSMENT COMPLETED AND WILL CONTINUE POC. BED IN LOW POSITION AND CALL LIGHT IN REACH.
[2018-09-12 08:27] VITALS: BP 163/74
[2018-09-12 11:51] VITALS: BP 153/68
--- NOTE | 2018-09-12 15:43 | NUR ---
PT REQUESTS CALL AND SEE IF HIS GABAPENTIN CAN BE RESTARTED. DR. ISSA GAVE ORDER TO START AT HOME DOSE.
[2018-09-12 15:55] VITALS: BP 215/99
[2018-09-12 20:00] VITALS: BP 190/77
--- NOTE | 2018-09-12 22:00 | NUR ---
EVENING ROUNDS COMPLETED. REPORT RECEIVED. PT SITTING UP IN BED WITH EYES OPEN, ALERT AND ORIENTED X4. NO S/S OF DISTRESS. EVENING MEDICATIONS ADMINISTERED WITHOUT ISSUE. BLOOD SUGAR 201 NOT TREATED PER SLIDING SCALE PT STATES HE REFUSES TO TREAT BLOOD SUGAR UNLESS IT IS NEAR 500. PT DENIES FURTHER NEEDS AT THIS TIME. CALL LIGHT IN REACH. WILL CTM.
[2018-09-13] VITALS: BP 177/66
--- NOTE | 2018-09-13 01:41 | NUR ---
I have reviewed this patient and I concur with the Shift Assessment completed by the Licensed Practical Nurse today this shift.
[2018-09-13 04:00] VITALS: BP 190/80
[2018-09-13 06:15] LABS: BASOPHILS 0.5 % (0-2); EOSINOPHILS 2.2 % (0-7); HEMATOCRIT 26.6 % (42.0-54.0); HEMOGLOBIN 8.7 g/dL (13.5-17.5); IMMATURE GRANULOCYTES 0.5 % (0-5); MCH 31.6 pg (26.0-34.0); MCHC 32.7 g/dL (31.0-37.0); MCV 96.7 fL (80.0-100.0); MEAN PLATELET VOLUME 10.3 fL (7.4-10.4); NEUTROPHILS 70.8 % (40-80); PLATELET COUNT 160 10x3/uL (130-400); RBC 2.75 10x6/uL (4.20-6.10); RDW 15.1 % (11.5-14.5); WBC 6.4 10x3/uL (4.8-10.8)
[2018-09-13 06:37] LABS: ANION GAP 18.8 mmol/L (8-16); CREATININE - SERUM 8.2 mg/dL (0.6-1.3); POTASSIUM - SERUM 3.8 mmol/L (3.5-5.1)
[2018-09-13 06:39] LABS: PHOSPHOROUS 9.7 mg/dL (2.5-4.9)
[2018-09-13 08:38] VITALS: BP 193/77
[2018-09-13 09:11] VITALS: Ht 177.8 cm; Wt 115.7 kg
[2018-09-13 11:30] VITALS: BP 158/74
--- NOTE | 2018-09-13 12:33 | NUR ---
THIS AM PT DOES AGREE TO GO TO DIALYSIS TODAY. RENAL CAFE MANAGER HAS VISITED WITH HIM. HOWEVER, HE REFUSED FINGER STICK BS. WILL CONTINUE TO MONITOR.
--- NOTE | 2018-09-13 16:54 | NUR ---
PT WANTING TO LEAVE AMA. RENAL MEDICAL TECHNOLOGIST HEMATOLOGY CALLED AND MESSAGE LEFT.
--- NOTE | 2018-09-13 17:33 | NUR ---
PT LEFT AMA. CHRIS RENAL PATIENT MONITOR CALLED AND MESSAGE LEFT.
--- NOTE | 2018-09-16 08:22 | MORECARE ---
CASE MANAGEMENT DISCHARGE SUMMARY PATIENT: NADIA WHITT UNIT: [id number] ADM DATE: 09/11/18 AGE: 53 : 69 SEX: M ROOM/BED: D.2110 AUTHOR: BRIAN ELLSWORTH PHYSICIAN: REFERRING PHYSICIAN: DAVIN HALL MD DATE OF SERVICE: 09/16/18 Discharge Plan Patient Name: NADIA WHITT [facility] [facility] 1965 Planned Disposition: Left Against Medical Advice Anticipated Discharge Date: 09/13/18 Discharge Date: 09/13/2018 Expected LOS: 2 Initial Reviewer: [id number] Initial Review Date: 09/17/2018 Generated: 09/16/18 9:21 am Patient Name: NADIA WHITT Page [id number] at 0822 All edits/amendments must be made on the electronic document DICTATION DATE: 09/16/18820 CLAY WASHER: ANJU 09/16/18820 RPT#: [id number] DC DATE:09/13/18 STATUS: DIS IN [facility] [address] [place] [address] END OF REPORT
== END 2018-09-13 17:36 | disposition left against medical advice (07) ==
LOC: D.ER 14:23 → D.M2 16:43 → OBSVTIME 16:46 → D.M2 09-13 17:36
PROVIDERS: Family Medicine; ADMIT Internal Medicine Nephrology; ATTEND Internal Medicine Nephrology
DX: F15.99 Other stimulant use, unspecified with unspecified stimulant-induced disorder (principal); R44.1 Visual hallucinations; E11.22 Type 2 diabetes mellitus with diabetic chronic kidney disease; I12.0 Hypertensive chronic kidney disease with stage 5 chronic kidney disease or end stage renal disease; N18.6 End stage renal disease; Z99.2 Dependence on renal dialysis; Z91.15 Patient's noncompliance with renal dialysis; Z91.14 Patient's other noncompliance with medication regimen; Z89.431 Acquired absence of right foot; T87.89 Other complications of amputation stump; Y83.8 Other surgical procedures as the cause of abnormal reaction of the patient, or of later complication, without mention of misadventure at the time of the procedure; R21 Rash and other nonspecific skin eruption; E83.39 Other disorders of phosphorus metabolism; E11.51 Type 2 diabetes mellitus with diabetic peripheral angiopathy without gangrene

== ENCOUNTER 2018-10-28 10:16 | Emergency (ER) | payer MEDICAID ==
[~2018-10-28] VITALS: Ht 177.8 cm; Wt 109.1 kg
[2018-10-28 10:21] VITALS: Ht 177.8 cm; Wt 109.1 kg
[2018-10-28 11:17] LABS: BASOPHILS 0.3 % (0-2); EOSINOPHILS 2.2 % (0-7); HEMATOCRIT 33.9 % (42.0-54.0); HEMOGLOBIN 11.2 g/dL (13.5-17.5); IMMATURE GRANULOCYTES 0.1 % (0-5); LYMPHOCYTES 21.1 % (15-50); MCH 31.7 pg (26.0-34.0); MEAN PLATELET VOLUME 10.2 fL (7.4-10.4); MONOCYTES 5.6 % (2-11); NEUTROPHILS 70.7 % (40-80); PLATELET COUNT 174 10x3/uL (130-400); RBC 3.53 10x6/uL (4.20-6.10); RDW 14.8 % (11.5-14.5); WBC 6.8 10x3/uL (4.8-10.8)
[2018-10-28 11:37] LABS: ALBUMIN 2.9 g/dL (3.4-5.0); ANION GAP 16.3 mmol/L (8-16); BILIRUBIN - TOTAL 0.43 mg/dL (0.2-1.3); CALCIUM 8.9 mg/dL (8.5-10.1); CARBON DIOXIDE 23.5 mmol/L (21.0-32.0); POTASSIUM - SERUM 3.8 mmol/L (3.5-5.1); PROTEIN - SERUM 7.5 g/dL (6.4-8.2)
[2018-10-28 11:52] VITALS: BP 136/70
== END 2018-10-28 12:35 | disposition home or self-care (01) ==
LOC: D.ER 10:16
PROVIDERS: Emergency Medicine
DX: F22 Delusional disorders (principal); E11.9 Type 2 diabetes mellitus without complications; I12.9 Hypertensive chronic kidney disease with stage 1 through stage 4 chronic kidney disease, or unspecified chronic kidney disease; N18.6 End stage renal disease; Z99.2 Dependence on renal dialysis; Z86.79 Personal history of other diseases of the circulatory system; Z86.19 Personal history of other infectious and parasitic diseases; F15.10 Other stimulant abuse, uncomplicated

== ENCOUNTER 2019-04-02 09:44 | Emergency (ER) | payer MEDICAID ==
[~2019-04-02] VITALS: Ht 177.8 cm; Wt 100.0 kg
[2019-04-02 09:49] VITALS: Ht 177.8 cm; Wt 100.0 kg
[2019-04-02] MEDS ORDERED: VIBRAMYCIN 100100 MG PO (10:13)
[2019-04-02 11:23] VITALS: BP 164/93
== END 2019-04-02 11:24 | disposition home or self-care (01) ==
LOC: D.ER 09:44
DX: L03.116 Cellulitis of left lower limb (principal); Z89.511 Acquired absence of right leg below knee; Z72.0 Tobacco use; E11.22 Type 2 diabetes mellitus with diabetic chronic kidney disease; N18.9 Chronic kidney disease, unspecified; E11.40 Type 2 diabetes mellitus with diabetic neuropathy, unspecified; Z79.84 Long term (current) use of oral hypoglycemic drugs; I12.0 Hypertensive chronic kidney disease with stage 5 chronic kidney disease or end stage renal disease; N18.6 End stage renal disease; Z99.2 Dependence on renal dialysis

== ENCOUNTER 2020-03-24 10:09 | Inpatient (IN) | payer MEDICAID ==
[~2020-03-24] VITALS: Ht 177.8 cm; Wt 105.0 kg
[~2020-03-24 10:09] MED LIST changes: +AZITHROMYCIN500 MG PO; +VIBRAMYCIN 100100 MG PO
--- NOTE | 2020-03-24 11:21 | NUR ---
RICARDO WILEY APN FOR DR JC
[2020-03-24 11:50] LABS: APTT 32.7 SECONDS (22.8-39.4); INR 1.18 (0.85-1.17); PROTIME 13.9 SECONDS (11.6-15.0)
[2020-03-24 11:51] LABS: CALC OSMOLALITY 283 mosm/kg (275-300); CARBON DIOXIDE 24.9 mmol/L (21.0-32.0); CHLORIDE - SERUM 97 mmol/L (98-107); POTASSIUM - SERUM 5.2 mmol/L (3.5-5.1); SODIUM 135 mmol/L (136-145); UREA NITROGEN 40 mg/dL (7-18); eGFR NON AFRICAN AMERICAN 7 mL/min (90-120)
[2020-03-24 11:52] LABS: GLUCOSE 175 mg/dL (74-106)
[2020-03-24 12:01] LABS: BASOPHILS 0.3 % (0-2); EOSINOPHILS 1.9 % (0-7); HEMATOCRIT 31.4 % (42.0-54.0); HEMOGLOBIN 9.9 g/dL (13.5-17.5); IMMATURE GRANULOCYTES 0.3 % (0-5); LYMPHOCYTE ABS# 0.87 10x3/uL (1.32-3.57); LYMPHOCYTES 13.8 % (15-50); MCH 31.4 pg (26.0-34.0); MCHC 31.5 g/dL (31.0-37.0); MCV 99.7 fL (80.0-100.0); MEAN PLATELET VOLUME 11.3 fL (7.4-10.4); MONOCYTES 6.5 % (2-11); NEUTROPHIL ABS# 4.88 10x3/uL (1.78-5.38); NEUTROPHILS 77.2 % (40-80); RBC 3.15 10x6/uL (4.20-6.10); RDW 14.1 % (11.5-14.5); WBC 6.3 10x3/uL (4.8-10.8)
[2020-03-24 12:02] LABS: PLATELET COUNT 162 10x3/uL (130-400)
--- NOTE | 2020-03-24 12:06 | NUR ---
RAY WILEY AND DR JC AT BS DISCUSSING POC WITH PT
[2020-03-24 12:14] LABS: ALKALINE PHOSPHATASE 173 U/L (30-120); ALT (SGPT) 17 U/L (10-68); CKMB 1.6 U/L (0.0-3.6); CREATINE KINASE 54 UL (21-232); MAGNESIUM - SERUM 2.1 mg/dL (1.8-2.4); PROTEIN - SERUM 7.5 g/dL (6.4-8.2)
[2020-03-24 12:16] LABS: TROPONIN-I 0.151 ng/mL (0.000-0.060)
--- NOTE | 2020-03-24 13:30 | NUR ---
SITTING UP IN WR IN HW AWAITING ROOM. LUNCH SERVED/APPETITE GOOD. REFUSES BED TO LIE IN "I'M GOOD RIGHT HERE" HEPARIN INFUSING WITHOUT PROBLEMS. LEFT HAND POSITIONED/PROPPED ON PILLOW FOR COMFORT
[2020-03-24 13:34] VITALS: BP 131/59
[2020-03-24 15:00] VITALS: BP 130/76
--- NOTE | 2020-03-24 18:55 | NUR ---
ARRIVES TO UNIT PER HIS MOTORIZED WC, TRANSFERED TO BED, HEPARIN INFUSING AT 10CC INTO R HAND, SL IN RAC, ALERT AND O, CONT TO MONITOR
[2020-03-24 20:00] VITALS: BP 156/83
--- NOTE | 2020-03-24 20:05 | NUR ---
WALKED INTO PT ROOMM TO INTRODUCE SELF. PT OPENED EYES TO LOUD VOICE. PAIN MEDICATION RECENTLY GIVEN ON PRIOR SHIFT. PT WAS ORIENRTED TO MY QUESTIONS BUT WOULD FALL BACK TO SLEEP QUICKLY. PT O2-89% APPLIED 2L OF O2 PT SAT 94%. VSS. 156/83,81-HR,98.3-T, RR E/U AT 18. BED LOW ALARM IN PLACE CALL LIGHT WITHIN REACH WILL CONTINUE TO MONITOR.
[2020-03-25] VITALS (11 sets, daily range): BP systolic 99–185; BP diastolic 54–77; Ht 177.8 cm; Wt 105.0 kg
[2020-03-25 07:30] LABS: BASOPHILS 0.5 % (0-2); EOSINOPHILS 1.8 % (0-7); HEMATOCRIT 31.8 % (42.0-54.0); HEMOGLOBIN 9.9 g/dL (13.5-17.5); IMMATURE GRANULOCYTES 0.5 % (0-5); LYMPHOCYTE ABS# 0.91 10x3/uL (1.32-3.57); LYMPHOCYTES 14.9 % (15-50); MCH 31.4 pg (26.0-34.0); MCHC 31.1 g/dL (31.0-37.0); MEAN PLATELET VOLUME 11.4 fL (7.4-10.4); MONOCYTES 7.7 % (2-11); NEUTROPHIL ABS# 4.54 10x3/uL (1.78-5.38); NEUTROPHILS 74.6 % (40-80); PLATELET COUNT 155 10x3/uL (130-400); RBC 3.15 10x6/uL (4.20-6.10); RDW 14.2 % (11.5-14.5); WBC 6.1 10x3/uL (4.8-10.8)
[2020-03-25 07:47] LABS: ALBUMIN 2.8 g/dL (3.4-5.0); ANION GAP 18.1 mmol/L (8-16); BILIRUBIN - TOTAL 0.36 mg/dL (0.2-1.3); CALCIUM 9.1 mg/dL (8.5-10.1); CARBON DIOXIDE 22.5 mmol/L (21.0-32.0); CREATININE - SERUM 9.8 mg/dL (0.6-1.3)
[2020-03-25 07:52] LABS: POTASSIUM - SERUM 6.6 mmol/L (3.5-5.1)
--- NOTE | 2020-03-25 08:00 | NUR ---
ALERT AND ORIENTED. LUNGS CLEAR BILATERALLY. HEART SOUNDS S1 AND S2 HEARD IN ALL POWELL. BOWEL SOUNDS ACTIVE X4. IV TO RIGHT HAND PATENT WITHOUT REDNESS. IV TO RIGHT AC PATENT WITHOUT REDNESS. DENIES NEEDS. BED LOW. CALL TUBBS AND PERSONAL ITEMS IN REACH. WILL CONTINUE TO MONITOR.
--- NOTE | 2020-03-25 08:57 | NUR ---
SURGERY CALLED TO PREOP PATIENT. DIALYSIS CALLED TO BRING PATIENT TO DIALYSIS. STATES PATIENT TO BE DIALYZED PRIOR TO SURGERY. PATIENT TAKEN TO DIALYSIS WITH PREOP MEDICATIONS AND AM MEDICATIONS.
--- NOTE | 2020-03-25 15:09 | NUR ---
PULSEOX DIFFICULT TO OBTAIN ON LEFT HAND PER DR JC'S PREFERENCE. ALTERNATING LEFT HAND WITH RT EAR CLIP.
--- NOTE | 2020-03-25 15:49 | NUR ---
PATIENT ADMITTED TO FLOOR YESTERDAY ON [employer]. ADMISSION COMPLETED TODAY BY DAY SHIFT RN.
[2020-03-25 17:12] LABS: ANION GAP 18.8 mmol/L (8-16); CALCIUM 8.7 mg/dL (8.5-10.1); CARBON DIOXIDE 24.4 mmol/L (21.0-32.0); CREATININE - SERUM 7.8 mg/dL (0.6-1.3)
--- NOTE | 2020-03-25 17:12 | NUR ---
REFUSES BLOOD SUGAR CHECK. STATES NOT DIABETIC.
[2020-03-25 17:32] LABS: POTASSIUM - SERUM 6.2 mmol/L (3.5-5.1)
--- NOTE | 2020-03-25 20:05 | NUR ---
PT REFUSES TO WEAR TELEMETRY AT THIS TIME.
[2020-03-26 01:59] VITALS: BP 118/63
--- NOTE | 2020-03-26 02:01 | NUR ---
CHANGING BAG ON HEPARIN DRIP.A/O X4 PT COMPLAINS OF PAIN IN BACK. TAKES A BREATH AND BECOMES UNRESPONSIVE W/O RR. NO PULSE FELT COMPRESSIONS STARTED CODE BLUE CALLED.
[2020-03-26 02:46] LABS: BASOPHILS 0.5 % (0-2); EOSINOPHILS 0.1 % (0-7); HEMATOCRIT 40.7 % (42.0-54.0); IMMATURE GRANULOCYTES 4.1 % (0-5); LYMPHOCYTE ABS# 3.05 10x3/uL (1.32-3.57); LYMPHOCYTES 40.2 % (15-50); MCH 31.3 pg (26.0-34.0); MCHC 29.5 g/dL (31.0-37.0); MEAN PLATELET VOLUME 12.6 fL (7.4-10.4); MONOCYTES 6.2 % (2-11); NEUTROPHIL ABS# 3.71 10x3/uL (1.78-5.38); NEUTROPHILS 48.9 % (40-80); PLATELET COUNT 174 10x3/uL (130-400); RBC 3.84 10x6/uL (4.20-6.10); RDW 14.5 % (11.5-14.5); WBC 7.6 10x3/uL (4.8-10.8)
[2020-03-26 02:59] LABS: ALBUMIN 2.7 g/dL (3.4-5.0); BILIRUBIN - TOTAL 0.94 mg/dL (0.2-1.3); CALCIUM 9.1 mg/dL (8.5-10.1); CARBON DIOXIDE 19.4 mmol/L (21.0-32.0); CREATININE - SERUM 8.4 mg/dL (0.6-1.3); PROTEIN - SERUM 7.3 g/dL (6.4-8.2)
[2020-03-26 03:01] LABS: ANION GAP 29.3 mmol/L (8-16); POTASSIUM - SERUM 7.7 mmol/L (3.5-5.1)
--- NOTE | 2020-03-26 12:23 | MORECARE ---
CASE MANAGEMENT DISCHARGE SUMMARY PATIENT: NADIA WHITT UNIT: [id number] ADM DATE: 03/24/20 AGE: 54 : 69 SEX: M ROOM/BED: D.2203 AUTHOR: BRIAN ELLSWORTH PHYSICIAN: REFERRING PHYSICIAN: TREASURE RIVERO MD DATE OF SERVICE: 03/26/20 Discharge Plan Patient Name: NADIA WHITT [facility] : 1965 Planned Disposition: Anticipated Discharge Date: Discharge Date: 03/26/2020 Expected LOS: Initial Reviewer: [id number] Initial Review Date: 03/24/2020 Generated: 03/26/20 1:22 pm Patient Name: NADIA WHITT Page 95239 at 1223 All edits/amendments must be made on the electronic document DICTATION DATE: 03/26/20 1222 TRANSFER STATION OPERATOR: ANJU 03/26/20 1222 RPT#: [id number] DC DATE:03/26/20 STATUS: DIS IN [facility] [address] [place] [address] END OF REPORT
--- NOTE | 2020-05-09 12:25 | OP ---
PATIENT NAME: NADIA WHITT MEDICAL RECORD: [id number] :69 LOCATION:D.MS [id number] ADMISSION DATE:03/24/20 SURGEON: DANTE JC MD DATE OF OPERATION: 03/25/2020 PREOPERATIVE DIAGNOSIS: Severe steal syndrome involving the left upper extremity with no significant arterial flow in the ulnar and radial arteries at the wrist. POSTOPERATIVE DIAGNOSIS: Severe steal syndrome involving the left upper extremity with no significant arterial flow in the ulnar and radial arteries at the wrist. PROCEDURE: Open banding of left upper extremity arteriovenous fistula. SURGEON: Dante Jc MD ANVILSMITH: None. BLOOD LOSS: Please see the anesthesia sheet. COMPLICATIONS: None. The risks, possible complications, and alternatives of the procedure were explained to the patient. He elects to proceed. I specifically discussed with him the possibility that this procedure would not be affected and that we would have to do a revisionary procedure in the future, perhaps balloon angioplasties of the radial and ulnar arteries or a DRIL procedure. DESCRIPTION OF PROCEDURE: The patient was conveyed to the operating room electively on 03/25/2020. General anesthesia was induced by the anesthesia staff. The left upper extremity was abducted at 90 degrees to the patient's trunk. The left upper extremity was sterilely prepped and draped. An axial incision was accomplished over the outflow vein just at the arterial anastomosis. I dissected around the vein. The vein was quite large. It was a high flow system. I then took a PTFE band, which I fashioned that was about 5 mm wide. I then placed this around the outflow vein just distal to the arteriovenous anastomosis. I then pleated this band with a horizontal mattress 4-0 nylon. I then listened for Doppler signal in the radial and ulnar arteries at the left wrist. It was very faint. I then repleated the same band tightening it further. Arterial flow was improved at the radial and ulnar arteries. I then repeated the band and the ulnar artery had biphasic signal and the radial artery had monophasic signal. I felt that this was a significant improvement. The subdermis was approximated with interrupted 3-0 Vicryl. The skin was approximated with a running intracuticular 4-0 Vicryl. Benzoin and Steri-Strips were applied. The patient was then extubated and conveyed to post-anesthesia care unit where he was in stable condition. TRANSINT:[id number] Voice Confirmation ID: [id number] DOCUMENT ID: [id number] OPERATIVE REPORT [id number] NADIA WHITT, DANTE JOHANSEN at 1225 CC: MARTIR ISSA MD [id number] DICTATION DATE: 05/09/20 1054 MOVEMENT THERAPIST: 05/09/20 1138 DIS IN 03/26/20 [place] [id number]
== END 2020-03-26 02:05 | DRG 252 ==
LOC: D.ER 10:09 → D.MS 11:33
PROVIDERS: Family Medicine; ADMIT Internal Medicine Nephrology; ATTEND Internal Medicine Nephrology
PROC: 03V Upper Arteries, Restriction (ICD-10-PCS; 2020-03-25)
PROC: 0BH17EZ Insertion of Endotracheal Airway into Trachea, Via Natural or Artificial Opening (ICD-10-PCS; principal; 2020-03-26)
DX: T82.898A Other specified complication of vascular prosthetic devices, implants and grafts, initial encounter (principal); N18.6 End stage renal disease; I13.2 Hypertensive heart and chronic kidney disease with heart failure and with stage 5 chronic kidney disease, or end stage renal disease; I47.2 Ventricular tachycardia; I70.268 Atherosclerosis of native arteries of extremities with gangrene, other extremity; E11.22 Type 2 diabetes mellitus with diabetic chronic kidney disease; I50.9 Heart failure, unspecified; Z99.2 Dependence on renal dialysis; I73.9 Peripheral vascular disease, unspecified; Z89.511 Acquired absence of right leg below knee; E87.5 Hyperkalemia; Z86.19 Personal history of other infectious and parasitic diseases